=== PATIENT | female | born 1960 | race Caucasian/White ===

== ENCOUNTER 2016-10-09 14:33 | Emergency (ER) | payer OTHER ==
--- NOTE | 2016-10-09 15:37 | EDM.PDOC ---
ED HPI GENERAL MEDICAL PROBLEM - General Chief Complaint: General Stated Complaint: DIABETIC, HIGH BLOOD Time Seen by Provider: 10/09/16 15:48 Source of Information: Reports: Patient, RN, RN Notes Reviewed History Limitations: Reports: No Limitations - History of Present Illness INITIAL COMMENTS - FREE TEXT/NARRATIVE: Arrives to the ER by private vehicle with complaint of chest pain/pressure for 3 to 34 days. Today the patient found her blood pressure to be significantly higher than usual. She also found her blood sugar to be over 500, which is extremely unusual for her. She had a headache earlier, which had resolved by the time of arrival. She denies any edema, nausea, vomiting or cough. She denies radiating pain. She does admit to episodes of shortness of breath, which are not related to exertion. Patient states that she took and aspirin 81 mg this morning. Severity: Severe Improves with: Reports: None Worsens with: Reports: None Associated Symptoms: Reports: No Other Symptoms - Related Data Allergies Allergy/AdvReac Type Severity Reaction Status Date / Time Penicillins Allergy Cannot Verified 10/09/16 15:49 Remember Home Meds: Home Meds Budesonide/Formoterol Fumarate [Symbicort 80-4.5 Mcg Inhaler] 1 mg PO ACLUNCH [History] Citalopram Hydrobromide [Citalopram HBr] 20 mg PO DAILY 10/09/16 [History] metFORMIN [Glucophage] 1,000 mg PO BID 10/09/16 [History] Past Medical History Cardiovascular History: Reports: Hypertension Endocrine/Metabolic History: Reports: Diabetes, Type II, Obesity/BMI 30+ Social & Family History - Family History Family Medical History: Noncontributory ED ROS GENERAL - Review of Systems Review Of Systems: ROS reveals no pertinent complaints other than HPI. ED EXAM, GENERAL - Physical Exam Exam: See Below Exam Limited By: No Limitations General Appearance: Anxious, Obese Eye Exam: Bilateral Eye: Normal Inspection Ears: Normal External Exam, Normal Canal, Hearing Grossly Normal, Normal TMs Nose: Normal Inspection, Normal Mucosa, No Blood Throat/Mouth: Normal Inspection, Normal Lips, Normal Teeth, Normal Gums, Normal Oropharynx, Normal Voice, No Airway Compromise Head: Atraumatic, Normocephalic Neck: Normal Inspection, Supple, Non-Tender, Full Range of Motion Respiratory/Chest: No Respiratory Distress, Lungs Clear, Normal Breath Sounds, No Accessory Muscle Use, Chest Non-Tender Cardiovascular: Regular Rate, Rhythm, Tachycardia GI/Abdominal: Other (benign obese abdomen) Back Exam: Normal Inspection, Full Range of Motion, NT Extremities: Normal Inspection, Normal Range of Motion, Non-Tender, Normal Capillary Refill, No Pedal Edema Neurological: Alert, Oriented, CN II-XII Intact, Normal Cognition, Normal Gait, Normal Reflexes, No Motor/Sensory Deficits Psychiatric: Anxious Skin Exam: Other (normal but flushed color to face.) Lymphatic: No Adenopathy EKG INTERPRETATION EKG Date: 10/09/16 Time: 16:02 Rhythm: other (sinus rhythm) Rate (beats/min): 94 [place]: normal P-wave: present QRS: normal ST-T: normal QT: normal Course - Vital Signs Last Recorded V/S: Last Vital Signs Temp 36.6 C 10/09/16 15:42 Pulse 96 10/09/16 15:42 Resp 14 10/09/16 15:42 BP 179/116 H 10/09/16 15:42 Pulse Ox 97 10/09/16 15:42 - Orders/Labs/Meds Orders: Active Orders 24 hr Category Date Time Status EKG 12 Lead [EKG Documentation Completion] [RC] STAT Care 10/09/16 15:40 Active Peripheral IV Care [RC] . DIRECTED Care 10/09/16 15:41 Active B-TYPE NATRIURETIC PEPTIDE,BNP [CHEM] Stat Lab 10/09/16 15:55 Results COMPREHENSIVE METABOLIC PN,CMP [CHEM] Stat Lab 10/09/16 15:55 Results CULTURE BLOOD [BC] Stat Lab 10/09/16 15:50 Results CULTURE BLOOD [BC] Stat Lab 10/09/16 15:55 Received ETHANOL BLOOD MEDICAL [CHEM] Stat Lab 10/09/16 15:55 Results LACTIC ACID [CHEM] Stat Lab 10/09/16 15:55 Received TROPONIN I [CHEM] Stat Lab 10/09/16 15:55 Results Sodium Chloride 0.9% [Saline Flush] Med 10/09/16 15:41 Active 10 ml FLUSH ASDIRECTED PRN Blood Culture x2 Reflex Set [OM.PC] Stat Oth 10/09/16 15:40 Ordered Peripheral IV Insertion Adult [OM.PC] Stat Oth 10/09/16 15:40 Ordered Medication Orders Sodium Chloride (Saline Flush) 10 ml FLUSH ASDIRECTED PRN PRN Reason: Keep Vein Open Last Admin: 10/09/16 16:04 Dose: 10 ml Labs: Laboratory Tests 10/09/16 10/09/16 10/09/16 Range/Units 15:17 15:55 15:55 WBC 8.4 (5.0-10.0) 10^3/uL RBC 4.85 (4.2-5.4) 10^6/uL Hgb 14.9 (12.0-16.0) g/dL Hct 43.4 (37.0-47.0) % MCV 89.5 (80-100) fL MCH 30.7 (27.0-34.0) pg MCHC 34.3 (33.0-35.0) g/dL Plt Count 206 (150-450) 10^3/uL Neut % (Auto) 51.8 (42.2-75.2) % Lymph % (Auto) 39.2 (20.5-50.1) % [place] % (Auto) 6.9 (2-8) % Eos % (Auto) 1.7 (1.0-3.0) % Baso % (Auto) 0.4 (0.0-1.0) % POC Glucose 472 H* (70-105) mg/dl Troponin I 0.03 H* (0.00-0.02) ng/ml B-Natriuretic Peptide 17 (0-100) pg/ml Urine Color (YELLOW) Urine Appearance (CLEAR) Urine pH (5.0-9.0) Ur Specific [place] (1.005-1.030) Urine Protein (NEGATIVE) Urine Glucose (UA) (NEGATIVE) Urine Ketones (NEGATIVE) Urine Occult Blood (NEGATIVE) Urine Nitrite (NEGATIVE) Urine Bilirubin (NEGATIVE) Urine Urobilinogen (0.2-1.0) mg/dL Ur Leukocyte Esterase (NEGATIVE) Urine RBC /HPF Urine WBC (0-5/HPF) /HPF Ur Epithelial Cells /HPF Urine Bacteria (0-FEW/HPF) /HPF Urine Mucus /LPF Urine Opiates Screen (NEGATIVE) Ur Oxycodone Screen (NEGATIVE) Urine Methadone Screen (NEGATIVE) Ur Barbiturates Screen (NEGATIVE) U Tricyclic Antidepress (NEGATIVE) Ur Phencyclidine Scrn (NEGATIVE) Ur Amphetamine Screen (NEGATIVE) U Methamphetamines Scrn (NEGATIVE) Urine MDMA Screen (NEGATIVE) U Benzodiazepines Scrn (NEGATIVE) Urine Cocaine Screen (NEGATIVE) U Marijuana (THC) Screen (NEGATIVE) 10/09/16 10/09/16 Range/Units 16:12 16:12 WBC (5.0-10.0) 10^3/uL RBC (4.2-5.4) 10^6/uL Hgb (12.0-16.0) g/dL Hct (37.0-47.0) % MCV (80-100) fL MCH (27.0-34.0) pg MCHC (33.0-35.0) g/dL Plt Count (150-450) 10^3/uL Neut % (Auto) (42.2-75.2) % Lymph % (Auto) (20.5-50.1) % [place] % (Auto) (2-8) % Eos % (Auto) (1.0-3.0) % Baso % (Auto) (0.0-1.0) % POC Glucose (70-105) mg/dl Troponin I (0.00-0.02) ng/ml B-Natriuretic Peptide (0-100) pg/ml Urine Color Yellow (YELLOW) Urine Appearance Slightly cloudy (CLEAR) Urine pH 5.0 (5.0-9.0) Ur Specific [place] 1.010 (1.005-1.030) Urine Protein Negative (NEGATIVE) Urine Glucose (UA) 500 H (NEGATIVE) Urine Ketones Negative (NEGATIVE) Urine Occult Blood Negative (NEGATIVE) Urine Nitrite Negative (NEGATIVE) Urine Bilirubin Negative (NEGATIVE) Urine Urobilinogen 0.2 (0.2-1.0) mg/dL Ur Leukocyte Esterase Negative (NEGATIVE) Urine RBC 0-5 /HPF Urine WBC 0-5 (0-5/HPF) /HPF Ur Epithelial Cells Few /HPF Urine Bacteria Rare (0-FEW/HPF) /HPF Urine Mucus Rare /LPF Urine Opiates Screen Negative (NEGATIVE) Ur Oxycodone Screen Negative (NEGATIVE) Urine Methadone Screen Negative (NEGATIVE) Ur Barbiturates Screen Negative (NEGATIVE) U Tricyclic Antidepress Negative (NEGATIVE) Ur Phencyclidine Scrn Negative (NEGATIVE) Ur Amphetamine Screen Negative (NEGATIVE) U Methamphetamines Scrn Negative (NEGATIVE) Urine MDMA Screen Negative (NEGATIVE) U Benzodiazepines Scrn Negative (NEGATIVE) Urine Cocaine Screen Negative (NEGATIVE) U Marijuana (THC) Screen Negative (NEGATIVE) Meds: Medications Generic Name Dose Route Start Last Admin Trade Name Freq PRN Reason Stop Dose Admin Sodium Chloride 10 ml 10/09/16 15:41 10/09/16 16:04 Saline Flush FLUSH 10 ml ASDIRECTED PRN Administration Keep Vein Open Discontinued Medications Generic Name Dose Route Start Last Admin Trade Name Freq PRN Reason Stop Dose Admin Aspirin 324 mg 10/09/16 17:24 10/09/16 17:48 Aspirin PO 10/09/16 17:25 324 mg ONETIME ONE Administration Hydralazine HCl 20 mg 10/09/16 15:41 10/09/16 16:03 Apresoline IVPUSH 10/09/16 15:42 20 mg ONETIME ONE Administration Insulin Human Regular 10 unit 10/09/16 15:42 10/09/16 16:31 Novolin R SUBCUT 10/09/16 15:43 10 units ONETIME ONE Administration Protocol - Radiology Interpretation Free Text/Narrative:: Chest x-ray: Per rad report is normal. Departure - Departure Time of Disposition: 17:20 Disposition: DC/Tfer to Acute Hospital 02 Condition: serious Clinical Impression: Elevated troponin, Accelerated hypertension Chest pain Qualifiers: Chest pain type: unspecified Qualified Code(s): R07.9 - Chest pain, unspecified Hyperglycemia due to type 2 diabetes mellitus Qualifiers: Diabetes mellitus prison insulin use: without prison use Qualified Code(s ): E11.65 - Type 2 diabetes mellitus with hyperglycemia - Discharge Information Forms: ED Department Discharge, Interfacility Transfer EMTALA - My Orders Last 24 Hours: My Active Orders 10/09/16 15:40 EKG 12 Lead [EKG Documentation Completion] [RC] STAT Blood Culture x2 Reflex Set [OM.PC] Stat Peripheral IV Insertion Adult [OM.PC] Stat 10/09/16 15:41 Peripheral IV Care [RC] . DIRECTED Sodium Chloride 0.9% [Saline Flush] 10 ml FLUSH ASDIRECTED PRN 10/09/16 15:50 CULTURE BLOOD [BC] Stat 10/09/16 15:55 B-TYPE NATRIURETIC PEPTIDE,BNP [CHEM] Stat COMPREHENSIVE METABOLIC PN,CMP [CHEM] Stat CULTURE BLOOD [BC] Stat ETHANOL BLOOD MEDICAL [CHEM] Stat LACTIC ACID [CHEM] Stat TROPONIN I [CHEM] Stat - Assessment/Plan Last 24 Hours: My Active Orders 10/09/16 15:40 EKG 12 Lead [EKG Documentation Completion] [RC] STAT Blood Culture x2 Reflex Set [OM.PC] Stat Peripheral IV Insertion Adult [OM.PC] Stat 10/09/16 15:41 Peripheral IV Care [RC] . DIRECTED Sodium Chloride 0.9% [Saline Flush] 10 ml FLUSH ASDIRECTED PRN 10/09/16 15:50 CULTURE BLOOD [BC] Stat 10/09/16 15:55 B-TYPE NATRIURETIC PEPTIDE,BNP [CHEM] Stat COMPREHENSIVE METABOLIC PN,CMP [CHEM] Stat CULTURE BLOOD [BC] Stat ETHANOL BLOOD MEDICAL [CHEM] Stat LACTIC ACID [CHEM] Stat TROPONIN I [CHEM] Stat
[2016-10-09] MEDS ORDERED: Sodium Chloride 0.9% 10 ML Syringe FLUSH PRN (15:41)
[2016-10-09] MEDS ORDERED: hydrALAZINE 20 MG/ML SDV IVPUSH ONE (15:41)
[2016-10-09] MEDS ORDERED: Insulin Regular, Human 100 Units/ML 10 ML Vial SUBCUT ONE (15:42)
[2016-10-09 15:46] VITALS: BP 179/116
--- NOTE | 2016-10-09 16:34 | CR ---
Clinical history: 55-year-old hypertensive obese female with chest "pressure". Interpretation: AP portable chest (slight rotation) unremarkable. Normal cardiac silhouette and bony thorax. No cephalization of flow, signs of alveolar edema or depe ndent pleural effusion. No lung mass, hilar lymphadenopathy or focal lobar pneumonia. No atelectasis/collapse. No pneumothor ax.
[2016-10-09] MEDS ORDERED: Aspirin 81 MG Tab.Chew PO ONE (17:24)
[2016-10-09 18:39] LABS: CHLORIDE,CL 95 mmol/L (101-111); SODIUM,NA 131 mmol/L (135-145)
--- NOTE | 2016-10-14 13:50 | EKG ---
10/09/2016- TOY HERNANDEZ - EKG per my reading shows sinus rhythm with rate of 94. No acute ST changes. [facility] /[id number]
== END 2016-10-09 17:20 ==
LOC: DL.ED 14:33
DX: I10 Essential (primary) hypertension (principal); E11.65 Type 2 diabetes mellitus with hyperglycemia; R07.9 Chest pain, unspecified; R79.89 Other specified abnormal findings of blood chemistry; Z88.0 Allergy status to penicillin; Z79.899 Other long term (current) drug therapy; E66.9 Obesity, unspecified; Z79.84 Long term (current) use of oral hypoglycemic drugs
CPT/HCPCS: 36415; 71010; 80053; 80305; 81001; 82962; 83605; 83880; 84484; 85025; 87040; 93005; 96372; 96374; 99285; A9270; G0480; J0360; J1815; J7050

== ENCOUNTER 2021-04-08 15:37 | Observation (INO) | payer OTHER ==
[2021-04-08] MEDS ORDERED: Sodium Chloride 0.9% 10 ML Syringe FLUSH PRN (17:06)
[2021-04-08] MEDS ORDERED: Insulin Regular, Human 100 Units/ML 3 ML Vial IVPUSH ONE (17:06)
[2021-04-08] MEDS ORDERED: Sodium Chloride 0.9% 1,000 ML IV ONE (17:06)
[2021-04-08] MEDS ORDERED: Ondansetron 4 MG/2 ML SDV IV ONE (17:06)
[2021-04-08 17:45] LABS: ANION GAP 15.3 mEq/L (7-13); CHLORIDE,CL 84 mmol/L (98-107); SODIUM,NA 123 mmol/L (136-145)
--- NOTE | 2021-04-08 18:11 | EDM.PDOC ---
Scribed by Bufyf Valenzuela 04/08/21 [id number] for Joe Gonsales MD ED HPI GENERAL MEDICAL PROBLEM - General Chief Complaint: General Stated Complaint: HIGH BLOOD SUGAR Time Seen by Provider: 04/08/21 16:49 Source of Information: Reports: Patient, RN, RN Notes Reviewed History Limitations: Reports: No Limitations - History of Present Illness INITIAL COMMENTS - FREE TEXT/NARRATIVE: Patient presents to ED by POV stating she was started on steroids in high doses 10 days ago for temporal arteritis. Her blood glucoses has been much higher than normal, and today her machine read, "H". Admits to blurred vision, gen. weakness, nausea, increased thirst/dry mouth, and voiding in excessive amounts. Onset: Gradual Duration: Getting Worse Location: Reports: Generalized Severity: Severe Improves with: Reports: None Worsens with: Reports: None Associated Symptoms: Reports: No Other Symptoms - Related Data Allergies Allergy/AdvReac Type Severity Reaction Status Date / Time Penicillins Allergy Cannot Verified 04/08/21 16:53 Remember Home Meds: Home Meds Budesonide/Formoterol Fumarate [Symbicort 80-4.5 Mcg Inhaler] 1 puff IH DAILY 10/09/16 [History] Citalopram Hydrobromide [Citalopram HBr] 10 mg PO DAILY 10/09/16 [History] metFORMIN [Glucophage] 1,000 mg PO BID 10/09/16 [History] Aspirin [Esther Chewable] 81 mg PO 10/21/16 [History] Labetalol HCl [Labetalol] 200 mg PO DAILY 10/21/16 [History] Loratadine/Pseudoephedrine [Loratadine-Pseudoephed 10-240] 1 each PO DAILY 10/21/16 [History] Magnesium 250 mg PO DAILY 10/21/16 [History] Multivitamin [Multivitamins] 1 tab PO DAILY 10/21/16 [History] Zinc 50 mg PO DAILY 10/21/16 [History] amLODIPine [Norvasc] 5 mg PO DAILY 10/21/16 [History] Past Medical History HEENT History: Reports: Allergic Rhinitis Cardiovascular History: Reports: Hypertension Respiratory History: Reports: Asthma Endocrine/Metabolic History: Reports: Diabetes, Type II, Obesity/BMI 30+ - Past Surgical History GI Surgical History: Reports: Cholecystectomy, Other (See Below) Other GI Surgeries/Procedures: liver biopsy Social & Family History - Family History Family Medical History: No Pertinent Family History - Caffeine Use Caffeine Use: Reports: None ED ROS GENERAL - Review of Systems Review Of Systems: Comprehensive ROS is negative, except as noted in HPI. ED EXAM, GENERAL - Physical Exam Exam: See Below Exam Limited By: No Limitations General Appearance: Alert, WD/WN, No Apparent Distress Eye Exam: Bilateral Eye: EOMI, Normal Inspection, PERRL Nose: Normal Inspection Throat/Mouth: Normal Voice, No Airway Compromise, Other (Dry oral mucosa with thrush) Head: Atraumatic, Normocephalic Neck: Normal Inspection, Non-Tender, Full Range of Motion. No: Carotid Bruit, Lymphadenopathy (L), Lymphadenopathy (R) Respiratory/Chest: No Respiratory Distress, Lungs Clear, Normal Breath Sounds, No Accessory Muscle Use, Chest Non-Tender Cardiovascular: Regular Rate, Rhythm, No Edema GI/Abdominal: Normal Bowel Sounds, Soft, Tender (Mild diffuse tenderness). No: Guarding, Rigid, Rebound Back Exam: Normal Inspection Extremities: Normal Inspection Neurological: Alert, Oriented, CN II-XII Intact, Normal Cognition, No Motor/Sensory Deficits Psychiatric: Normal Mood Skin Exam: Warm, Dry, Intact, Normal Color, No Rash Course - Vital Signs Last Recorded V/S: Last Vital Signs Temp 98 F 04/08/21 16:49 Pulse 92 04/08/21 16:49 Resp 18 04/08/21 16:49 BP 134/102 H 04/08/21 16:49 Pulse Ox 94 L 04/08/21 16:49 - Orders/Labs/Meds Orders: Active Orders 24 hr Category Date Time Status Blood Glucose Check, Bedside [RC] ONETIME Care 04/08/21 17:05 Active Peripheral IV Care [RC] . DIRECTED Care 04/08/21 17:06 Active CBC WITH AUTO DIFF [HEME] Stat Lab 04/08/21 16:40 Results COMPREHENSIVE METABOLIC PN,CMP [CHEM] Stat Lab 04/08/21 16:40 Results CORONAVIRUS COVID-19 JOI [MOLEC] Stat Lab 04/08/21 17:22 Received KETONES,BLOOD [CHEM] Stat Lab 04/08/21 16:40 Results LACTATE SEPSIS W/ REFLEX [CHEM] Stat Lab 04/08/21 17:05 Ordered MANUAL DIFFERENTIAL QA/NC [HEME] Stat Lab 04/08/21 16:40 Results TROPONIN I HIGH SENSITIVITY [CHEM] Stat Lab 04/08/21 16:40 Results UA RFX HERNANDEZ AND CULT IF INDIC [URIN] Stat Lab 04/08/21 17:05 Ordered Insulin Regular in 0.9 % NACL [Myxredlin in NS 100 UNIT Med 04/08/21 17:15 Active /100 ML] 100 unit in 100 ml IV TITRATE Sodium Chloride 0.9% [Saline Flush] Med 04/08/21 17:06 Active 10 ml FLUSH ASDIRECTED PRN Peripheral IV Insertion Adult [OM.PC] Stat Oth 04/08/21 17:05 Ordered Medication Orders Insulin Regular in 0.9 % NACL (Myxredlin In Ns 100 Unit/100 Ml) 100 unit in 100 mls @ 6.895 mls/hr IV TITRATE WILIAM; Protocol Last Admin: 04/08/21 17:43 Dose: 0.1 units/kg/hr, 6.895 mls/hr Documented by: TAMMY Cosigned by: MILAGROS Sodium Chloride (Sodium Chloride 0.9% 10 Ml Syringe) 10 ml FLUSH ASDIRECTED PRN PRN Reason: Keep Vein Open Labs: Laboratory Tests 04/08/21 04/08/21 04/08/21 Range/Units 16:34 16:40 16:40 WBC 15.9 H (5.0-10.0) 10^3/uL RBC 5.20 (4.2-5.4) 10^6/uL Hgb 13.7 (12.0-16.0) g/dL Hct 42.9 (37.0-47.0) % MCV 82.5 D (80-100) fL MCH 26.3 L (27.0-34.0) pg MCHC 31.9 L (33.0-35.0) g/dL Plt Count 308 D (150-450) 10^3/uL Neut % (Auto) 83.2 H (42.2-75.2) % Lymph % (Auto) 13.8 L (20.5-50.1) % [place] % (Auto) 2.3 (2-8) % Eos % (Auto) 0.5 L (1.0-3.0) % Baso % (Auto) 0.2 (0.0-1.0) % Add Manual Diff Yes POC Glucose > 600 H* (70-99) mg/dL Ketones Negative Meds: Medications Generic Name Dose Route Start Last Admin Trade Name Frearielle PRN Reason Stop Dose Admin Insulin Regular in 0.9 % NACL 100 unit in 100 mls @ 6.895 mls/hr 04/08/21 17:15 04/08/21 17:43 Myxredlin In Ns 100 Unit/100 Ml IV 0.1 units/kg/hr TITRATE WILIAM 6.895 mls/hr Administration Protocol 0.1 UNITS/KG/HR Sodium Chloride 10 ml 04/08/21 17:06 Sodium Chloride 0.9% 10 Ml Syringe FLUSH ASDIRECTED PRN Keep Vein Open Discontinued Medications Generic Name Dose Route Start Last Admin Trade Name Frearielle PRN Reason Stop Dose Admin Sodium Chloride 1,000 mls @ 999 mls/hr 04/08/21 17:06 04/08/21 17:42 Normal Saline IV 04/08/21 18:06 999 mls/hr .BOLUS ONE Administration Insulin Human Regular 10 unit 04/08/21 17:06 04/08/21 17:41 Insulin Regular, Human 100 Units/Ml 3 Ml Vial IVPUSH 04/08/21 17:07 10 units ONETIME ONE Administration Ondansetron HCl 4 mg 04/08/21 17:06 Ondansetron 4 Mg/2 Ml Sdv IV 04/08/21 17:07 ONETIME ONE Departure - Departure Time of Disposition: 18:09 (admitted to Dr. Rios) Disposition: Refer to Observation Condition: Good Clinical Impression: Steroid-induced hyperglycemia, Controlled type 1 diabetes mellitus with hyperglycemia, with long-term current use of insulin - Discharge Information *PRESCRIPTION DRUG MONITORING PROGRAM REVIEWED*: Not Applicable *COPY OF PRESCRIPTION DRUG MONITORING REPORT IN PATIENT EVIN: Not Applicable Forms: ED Department Discharge Sepsis Event Note (ED) - Focused Exam Vital Signs: Vital Signs Temp Pulse Resp BP Pulse Ox 04/08/21 16:49 98 F 92 18 134/102 H 94 L - My Orders Last 24 Hours: My Active Orders 04/08/21 16:40 CBC WITH AUTO DIFF [HEME] Stat COMPREHENSIVE METABOLIC PN,CMP [CHEM] Stat KETONES,BLOOD [CHEM] Stat MANUAL DIFFERENTIAL QA/NC [HEME] Stat TROPONIN I HIGH SENSITIVITY [CHEM] Stat 04/08/21 17:05 Blood Glucose Check, Bedside [RC] ONETIME LACTATE SEPSIS W/ REFLEX [CHEM] Stat UA RFX HERNANDEZ AND CULT IF INDIC [URIN] Stat Peripheral IV Insertion Adult [OM.PC] Stat 04/08/21 17:06 Peripheral IV Care [RC] . DIRECTED Sodium Chloride 0.9% [Saline Flush] 10 ml FLUSH ASDIRECTED PRN 04/08/21 17:15 Insulin Regular in 0.9 % NACL [Myxredlin in NS 100 UNIT/100 ML] 100 unit in 100 ml IV TITRATE 04/08/21 17:22 CORONAVIRUS COVID-19 JOI [MOLEC] Stat - Assessment/Plan Last 24 Hours: My Active Orders 04/08/21 16:40 CBC WITH AUTO DIFF [HEME] Stat COMPREHENSIVE METABOLIC PN,CMP [CHEM] Stat KETONES,BLOOD [CHEM] Stat MANUAL DIFFERENTIAL QA/NC [HEME] Stat TROPONIN I HIGH SENSITIVITY [CHEM] Stat 04/08/21 17:05 Blood Glucose Check, Bedside [RC] ONETIME LACTATE SEPSIS W/ REFLEX [CHEM] Stat UA RFX HERNANDEZ AND CULT IF INDIC [URIN] Stat Peripheral IV Insertion Adult [OM.PC] Stat 04/08/21 17:06 Peripheral IV Care [RC] . DIRECTED Sodium Chloride 0.9% [Saline Flush] 10 ml FLUSH ASDIRECTED PRN 04/08/21 17:15 Insulin Regular in 0.9 % NACL [Myxredlin in NS 100 UNIT/100 ML] 100 unit in 100 ml IV TITRATE 04/08/21 17:22 CORONAVIRUS COVID-19 JOI [MOLEC] Stat I have read and agree with the documentation that has been completed regarding this visit. By signing this record, I attest that the documentation was completed in my physical presence and is an accurate record of the encounter.
[2021-04-08] MEDS ORDERED: Acetaminophen 325 MG Tab PO PRN (18:34)
[2021-04-08] MEDS ORDERED: 50% Dextrose in Water 50 ML Syringe IVPUSH PRN (19:00)
[2021-04-08] MEDS ORDERED: Glucagon,Human Recombinant 1 MG Vial IM PRN (19:00)
--- NOTE | 2021-04-08 19:10 | PCM.HP ---
H&P History of Present Illness - General Date of Service: 04/08/21 Admit Problem/Dx: Admission Diagnosis/Problem Admission Diagnosis/Problem Hyperglycemia Source of Information: Patient, EMS History Limitations: Reports: No Limitations - History of Present Illness Initial Comments - Free Text/Narative: 60-year-old female with a past medical history of type 2 diabetes on insulin, recent diagnosis of temporal arteritis on high-dose p.o. prednisone, hypertension who presents with fatigue, hyperglycemia. Patient states that approximately 2 weeks ago she was diagnosed with what her primary believes is temporal arteritis. Patient states that she had been having severe jaw pain, left-sided temporal pain. States that she had some labs which are similar elevated ESR and CRP and was started on significant prednisone 60 mg daily. She states that she felt better but over the last 3 to 4 days she has had increased bilateral blurry vision, generalized fatigue, increased thirst, increased urination. In the emergency department she was hemodynamically stable laboratory values included a sodium 123 with corrected to 134, potassium 4.3, creatinine 1.56 I am increased her baseline, WBC 15.9, hemoglobin 13.7, platelet count 388, AST 38, ALT 77, lactate 3.2. Upon discussion with patient she reiterates the above story. Patient states that the vision changes in general m alaise she otherwise feels well. Patient denies any chest pains or pressures, abdominal pain, nausea or vomiting. Patient states that she has been eating today but her oral intake has been otherwise well. She states that she uses 54 units of Lantus at night and this was increased recently with her steroids she also just restarted yesterday on aspart 5 3 times daily with meals. States that her glucose monitor Reading "H" which she has not seen before she was confused that is why took her longer to come in. - Related Data Allergies/Adverse Reactions: Allergies Allergy/AdvReac Type Severity Reaction Status Date / Time Penicillins Allergy Cannot Verified 04/08/21 16:53 Remember Home Medications: Home Meds Budesonide/Formoterol Fumarate [Symbicort 80-4.5 Mcg Inhaler] 1 puff IH DAILY 10/09/16 [History] Citalopram Hydrobromide [Citalopram HBr] 10 mg PO DAILY 10/09/16 [History] metFORMIN [Glucophage] 1,000 mg PO BID 10/09/16 [History] Aspirin [Esther Chewable] 81 mg PO 10/21/16 [History] Labetalol HCl [Labetalol] 200 mg PO DAILY 10/21/16 [History] Loratadine/Pseudoephedrine [Loratadine-Pseudoephed 10-240] 1 each PO DAILY 10/21/16 [History] Magnesium 250 mg PO DAILY 10/21/16 [History] Multivitamin [Multivitamins] 1 tab PO DAILY 10/21/16 [History] Zinc 50 mg PO DAILY 10/21/16 [History] amLODIPine [Norvasc] 5 mg PO DAILY 10/21/16 [History] Past Medical History HEENT History: Reports: Allergic Rhinitis Cardiovascular History: Reports: Hypertension Respiratory History: Reports: Asthma Endocrine/Metabolic History: Reports: Diabetes, Type II, Obesity/BMI 30+ - Past Surgical History GI Surgical History: Reports: Cholecystectomy, Other (See Below) Other GI Surgeries/Procedures: liver biopsy Social & Family History - Family History Family Medical History: No Pertinent Family History - Tobacco Use Tobacco Use Status *Q: Unknown Ever Used Tobacco - Caffeine Use Caffeine Use: Reports: Coffee H&P Review of Systems - Review of Systems: Review Of Systems: See Below Free Text/Narrative: Review of systems is negative symptoms as in the HPI Exam - Exam Exam: See Below - Vital Signs Vital Signs: Last Vital Signs Temp 98 F 04/08/21 16:49 Pulse 92 04/08/21 16:49 Resp 18 04/08/21 16:49 BP 134/102 H 04/08/21 16:49 Pulse Ox 94 L 04/08/21 16:49 Weight: 152 lb - Exam General: Alert, Oriented, Cooperative HEENT: Conjunctiva Clear, EACs Clear, Other (Bilateral decreased vision - peripheral hartmann intact), PERRLA Neck: Supple, Trachea Midline Lungs: Clear to Auscultation, Normal Respiratory Effort Cardiovascular: Regular Rate, Regular Rhythm GI/Abdominal Exam: Normal Bowel Sounds, Soft Back Exam: Normal Inspection Extremities: Normal Inspection, Normal Range of Motion Peripheral Pulses: 2+: Radial (L), Radial (R) Skin: Warm, Dry Neurological: Cranial Nerves Intact, Reflexes Equal Bilateral Neuro Extensive - Mental Status: Alert, Oriented x3, Normal Mood/Affect - Patient Data Lab Results Last 24 hrs: Laboratory Results - last 24 hr 12/11/2004/08/21 04/08/21 Range/Units 16:34 16:40 16:40 WBC 15.9 H (5.0-10.0) 10^3/uL RBC 5.20 (4.2-5.4) 10^6/uL Hgb 13.7 (12.0-16.0) g/dL Hct 42.9 (37.0-47.0) % MCV 82.5 D (80-100) fL MCH 26.3 L (27.0-34.0) pg MCHC 31.9 L (33.0-35.0) g/dL Plt Count 308 D (150-450) 10^3/uL Neut % (Auto) 83.2 H (42.2-75.2) % Lymph % (Auto) 13.8 L (20.5-50.1) % [place] % (Auto) 2.3 (2-8) % Eos % (Auto) 0.5 L (1.0-3.0) % Baso % (Auto) 0.2 (0.0-1.0) % Add Manual Diff Yes Neutrophils % (Manual) 87 H (42-75) % Lymphocytes % (Manual) 11 L (20-50) % Monocytes % (Manual) 2 (2-8) % Sodium 123 L (136-145) mmol/L Potassium 4.3 (3.5-5.1) mmol/L Chloride 84 L (98-107) mmol/L Carbon Dioxide 28 (21-32) mmol/L Anion Gap 15.3 H (7-13) mEq/L BUN 38 H (7-18) mg/dL Creatinine 1.56 H (0.55-1.02) mg/dL Est Cr Clr Drug Dosing 36.35 mL/min Estimated GFR (MDRD) 34 BUN/Creatinine Ratio 24.4 (No establ ref range) Glucose 812 H* (70-99) mg/dL POC Glucose > 600 H* (70-99) mg/dL Lactic Acid (0.4-2.0) mmol/L Calcium 9.3 (8.5-10.1) mg/dL Total Bilirubin 0.9 (0.2-1.0) mg/dL AST 38 H (15-37) U/L ALT 77 H (14-59) U/L Alkaline Phosphatase 227 H (46-116) U/L Troponin I High Sens 5 (<=51) pg/mL Total Protein 7.1 (6.4-8.2) g/dL Albumin 3.2 L (3.4-5.0) g/dL Globulin 3.9 Albumin/Globulin Ratio 0.82 Ketones Negative SARS-CoV-2 RNA (JOI) (NEGATIVE) 04/08/21 04/08/21 04/08/21 Range/Units 17:22 17:58 18:17 WBC (5.0-10.0) 10^3/uL RBC (4.2-5.4) 10^6/uL Hgb (12.0-16.0) g/dL Hct (37.0-47.0) % MCV (80-100) fL MCH (27.0-34.0) pg MCHC (33.0-35.0) g/dL Plt Count (150-450) 10^3/uL Neut % (Auto) (42.2-75.2) % Lymph % (Auto) (20.5-50.1) % [place] % (Auto) (2-8) % Eos % (Auto) (1.0-3.0) % Baso % (Auto) (0.0-1.0) % Add Manual Diff Neutrophils % (Manual) (42-75) % Lymphocytes % (Manual) (20-50) % Monocytes % (Manual) (2-8) % Sodium (136-145) mmol/L Potassium (3.5-5.1) mmol/L Chloride (98-107) mmol/L Carbon Dioxide (21-32) mmol/L Anion Gap (7-13) mEq/L BUN (7-18) mg/dL Creatinine (0.55-1.02) mg/dL Est Cr Clr Drug Dosing mL/min Estimated GFR (MDRD) BUN/Creatinine Ratio (No establ ref range) Glucose (70-99) mg/dL POC Glucose 473 H* (70-99) mg/dL Lactic Acid 3.2 H* (0.4-2.0) mmol/L Calcium (8.5-10.1) mg/dL Total Bilirubin (0.2-1.0) mg/dL AST (15-37) U/L ALT (14-59) U/L Alkaline Phosphatase (46-116) U/L Troponin I High Sens (<=51) pg/mL Total Protein (6.4-8.2) g/dL Albumin (3.4-5.0) g/dL Globulin Albumin/Globulin Ratio Ketones SARS-CoV-2 RNA (JOI) Negative (NEGATIVE) Result Diagrams: 04/08/21 16:40 04/08/21 16:40 - Problem List (1) DM2 (diabetes mellitus, type 2) SNOMED Code(s): 89943793 ICD Code: E11.9 - TYPE 2 DIABETES MELLITUS WITHOUT COMPLICATIONS Status: Acute Current Visit: Yes (2) Hyperglycemia due to type 2 diabetes mellitus SNOMED Code(s): 980856726286522, 889515038382656 ICD Code: E11.65 - TYPE 2 DIABETES MELLITUS WITH HYPERGLYCEMIA Status: Acute Current Visit: No Qualifiers: 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 use Qualified Code(s): E11.65 - Type 2 diabetes mellitus with hyperglycemia (3) Steroid-induced hyperglycemia SNOMED Code(s): 002980189 ICD Code: R73.9 - HYPERGLYCEMIA, UNSPECIFIED; T38.0X5A - ADVERSE EFFECT OF GLUCOCORT/SYNTH ANALOG, INIT Status: Acute Current Visit: No (4) HTN (hypertension) SNOMED Code(s): 05621872 ICD Code: I10 - ESSENTIAL (PRIMARY) HYPERTENSION Status: Acute Current Visit: Yes (5) Anxiety SNOMED Code(s): 02334553 ICD Code: F41.9 - ANXIETY DISORDER, UNSPECIFIED Status: Acute Current Visit: Yes (6) Temporal arteritis SNOMED Code(s): 516596801 ICD Code: M31.6 - OTHER GIANT CELL ARTERITIS Status: Acute Current Visit: Yes Problem List Initiated/Reviewed/Updated: Yes Orders Last 24hrs: Active Orders 24 hr Category Date Time Status Admission Diagnosis [ADT] Stat ADT 04/08/21 18:25 Ordered Admission Status [Patient Status] [ADT] Routine ADT 04/08/21 18:25 Active Blood Glucose Check, Bedside [RC] ONETIME Care 04/08/21 17:05 Active Blood Glucose Check, Bedside [RC] WITHMEALSANDBED Care 04/08/21 19:00 Ordered Oxygen Therapy [RC] PRN Care 04/08/21 18:34 Active Peripheral IV Care [RC] . DIRECTED Care 04/08/21 17:06 Active VTE/DVT Education [RC] PER UNIT ROUTINE Care 04/08/21 18:34 Active Vital Signs [RC] Q4H Care 04/08/21 18:34 Active REFLEX LACTIC ACID YES OR NO [CHEM] Routine Lab 04/08/21 18:56 Received UA RFX HERNANDEZ AND CULT IF INDIC [URIN] Stat Lab 04/08/21 17:05 Ordered Acetaminophen [TylenoL] Med 04/08/21 18:34 Active 650 mg PO Q4H PRN Dextrose 50% in Water Med 04/08/21 19:00 Ordered 50 ml IVPUSH Q15M PRN Glucagon,Human Recombinant [GlucaGen] Med 04/08/21 19:00 Ordered 1 mg IM Q15M PRN Insulin Glarg,Human.Rec.Analog [LantUS] Med 04/08/21 21:00 Ordered 55 unit SUBCUT BEDTIME Insulin Lispro [HumaLOG] Med 04/08/21 21:00 Ordered See Protocol SUBCUT WITHMEALSANDBED Insulin Regular in 0.9 % NACL [Myxredlin in NS 100 UNIT Med 04/08/21 17:15 Active /100 ML] 100 unit in 100 ml IV TITRATE Sodium Chloride 0.9% [Saline Flush] Med 04/08/21 17:06 Active 10 ml FLUSH ASDIRECTED PRN Peripheral IV Insertion Adult [OM.PC] Stat Oth 04/08/21 17:05 Ordered Resuscitation Status Routine Resus Stat 04/08/21 18:34 Ordered Medication Orders Acetaminophen (Acetaminophen 325 Mg Tab) 650 mg PO Q4H PRN PRN Reason: Pain (Mild 1-3)/fever Dextrose/Water (50% Dextrose In Water 50 Ml Syringe) 50 ml IVPUSH Q15M PRN PRN Reason: Hypoglycemia Glucagon (Glucagon,Human Recombinant 1 Mg Vial) 1 mg IM Q15M PRN PRN Reason: Hypoglycemia Insulin Regular in 0.9 % NACL (Myxredlin In Ns 100 Unit/100 Ml) 100 unit in 100 mls @ 6.895 mls/hr IV TITRATE WILIAM; Protocol Last Admin: 04/08/21 17:43 Dose: 0.1 units/kg/hr, 6.895 mls/hr Documented by: TAMMY Cosigned by: MILAGROS Insulin Glargine (Insulin Glarg,Human.Rec.Analog 100 Unit/Ml) 55 unit SUBCUT BEDTIME WILIAM Insulin Human Lispro (Insulin Lispro 100 Units/Ml 3 Ml Vial) 0 unit SUBCUT WITHMEALSANDBED WILIAM; Protocol Sodium Chloride (Sodium Chloride 0.9% 10 Ml Syringe) 10 ml FLUSH ASDIRECTED PRN PRN Reason: Keep Vein Open Assessment/Plan Comment:: Patient is a 60-year-old female with a history of type 2 diabetes on insulin therapy who presents with steroid-induced hyperglycemia due to recent p.o. prednisone for temporal arteritis # Hyperglycemia, HHS -Glucose significantly elevated at 812 upon admission, decreased to 470 after 10 units normal insulin -Secondary to significant prednisone given diagnosis temporal arteritis, patient recently had increase in her Lantus at home and had just the addition of aspart yesterday -DC'd insulin drip, ordered her home Lantus 55 units, will do medium dose sliding scale insulin, carb controlled diet, significant fluid resuscitation -Q4 hour glucose checks -Elevated lactate at 3.2, recheck within 4 hours, aggressive fluid resuscitation # EFFIE - unclear baseline but patient denies any kidney disease - K 4.3 - anion gap secondary to lactic acidosis from dehydration - Likely secondary to dehydration, recheck in a.m., fluid resuscitation see below # Temporal arteritis -Continue p.o. prednisone 50 mg p.o. daily -Patient states that she has a follow-up appointment with rheumatology tomorrow to discuss further management # Chronic medical conditions Hypertensioncontinue labetalol 200 mg p.o. daily, continue amlodipine Anxiety/depression -continue citalopram 10 mg daily Fluid status 150 mL an hour NS Electrolytesno acute concerns Dietcarb controlled
[2021-04-08] MEDS ORDERED: Sodium Chloride 0.9% with KCl 1,000 ML IV SCH (19:15)
[2021-04-08] MEDS: Sodium Chloride 0.9% 1,000 ML IV SCH (20:26)
[2021-04-08] MEDS: Insulin Lispro 100 Units/ML 3 ML Vial SUBCUT SCH (21:00)
[2021-04-08] MEDS ORDERED: Insulin Glarg,Human.Rec.Analog 100 Unit/ML SUBCUT SCH (21:00)
[2021-04-09] MEDS: Sodium Chloride 0.9% 1,000 ML IV SCH (03:12)
--- NOTE | 2021-04-09 06:16 | PCM.PN ---
- General Info Date of Service: 04/09/21 Admission Dx/Problem (Free Text): Admission Diagnosis/Problem Admission Diagnosis/Problem Hyperglycemia Subjective Update: Patient states that she feels improved this a.m. Denies any nausea or vomiting, chest pains or pressures, shortness of breath. Patient states her vision is also improved and she was able to read the clock this morning from across the room. Had prolonged discussion with patient about utilizing her long-acting insulin and then a sliding scale which was provided to her. Patient stated understanding. Patient has a follow-up with rheumatology today that she wishes to make. Review of systems is negative except those listed above. - Patient Data Vitals - Most Recent: Last Vital Signs Temp 99.2 F 04/09/21 04:00 Pulse 77 04/09/21 04:00 Resp 18 04/09/21 04:00 BP 137/83 04/09/21 04:00 Pulse Ox 94 L 04/09/21 04:00 Weight - Most Recent: 152 lb 6.4 oz I&O - Last 24 Hours: Intake & Output 04/08/21 04/08/21 04/09/21 14:59 22:59 06:59 Intake Total 700 Output Total 200 Balance 500 Lab Results Last 24 Hours: Laboratory Results - last 24 hr 04/08/21 04/08/21 04/08/21 Range/Units 16:34 16:40 16:40 WBC 15.9 H (5.0-10.0) 10^3/uL RBC 5.20 (4.2-5.4) 10^6/uL Hgb 13.7 (12.0-16.0) g/dL Hct 42.9 (37.0-47.0) % MCV 82.5 D (80-100) fL MCH 26.3 L (27.0-34.0) pg MCHC 31.9 L (33.0-35.0) g/dL Plt Count 308 D (150-450) 10^3/uL Neut % (Auto) 83.2 H (42.2-75.2) % Lymph % (Auto) 13.8 L (20.5-50.1) % [place] % (Auto) 2.3 (2-8) % Eos % (Auto) 0.5 L (1.0-3.0) % Baso % (Auto) 0.2 (0.0-1.0) % Add Manual Diff Yes Neutrophils % (Manual) 87 H (42-75) % Lymphocytes % (Manual) 11 L (20-50) % Monocytes % (Manual) 2 (2-8) % Sodium 123 L (136-145) mmol/L Potassium 4.3 (3.5-5.1) mmol/L Chloride 84 L (98-107) mmol/L Carbon Dioxide 28 (21-32) mmol/L Anion Gap 15.3 H (7-13) mEq/L BUN 38 H (7-18) mg/dL Creatinine 1.56 H (0.55-1.02) mg/dL Est Cr Clr Drug Dosing 36.35 mL/min Estimated GFR (MDRD) 34 BUN/Creatinine Ratio 24.4 (No establ ref range) Glucose 812 H* (70-99) mg/dL POC Glucose > 600 H* (70-99) mg/dL Lactic Acid (0.4-2.0) mmol/L Calcium 9.3 (8.5-10.1) mg/dL Total Bilirubin 0.9 (0.2-1.0) mg/dL AST 38 H (15-37) U/L ALT 77 H (14-59) U/L Alkaline Phosphatase 227 H (46-116) U/L Troponin I High Sens 5 (<=51) pg/mL Total Protein 7.1 (6.4-8.2) g/dL Albumin 3.2 L (3.4-5.0) g/dL Globulin 3.9 Albumin/Globulin Ratio 0.82 Urine Color (YELLOW) Urine Appearance (CLEAR) Urine pH (5.0-9.0) Ur Specific [place] (1.005-1.030) Urine Protein (NEGATIVE) Urine Glucose (UA) (NEGATIVE) Urine Ketones (NEGATIVE) Urine Occult Blood (NEGATIVE) Urine Nitrite (NEGATIVE) Urine Bilirubin (NEGATIVE) Urine Urobilinogen (0.2-1.0) mg/dL Ur Leukocyte Esterase (NEGATIVE) Urine RBC (0-5) /HPF Urine WBC (0-5/HPF) /HPF Ur Epithelial Cells (NOT SEEN) /HPF Amorphous Sediment (NOT SEEN) /HPF Urine Bacteria (0-FEW/HPF) /HPF Fine Granular Casts (NOT SEEN) /LPF Ketones Negative SARS-CoV-2 RNA (JOI) (NEGATIVE) 04/08/21 04/08/21 04/08/21 Range/Units 17:22 17:58 18:17 WBC (5.0-10.0) 10^3/uL RBC (4.2-5.4) 10^6/uL Hgb (12.0-16.0) g/dL Hct (37.0-47.0) % MCV (80-100) fL MCH (27.0-34.0) pg MCHC (33.0-35.0) g/dL Plt Count (150-450) 10^3/uL Neut % (Auto) (42.2-75.2) % Lymph % (Auto) (20.5-50.1) % [place] % (Auto) (2-8) % Eos % (Auto) (1.0-3.0) % Baso % (Auto) (0.0-1.0) % Add Manual Diff Neutrophils % (Manual) (42-75) % Lymphocytes % (Manual) (20-50) % Monocytes % (Manual) (2-8) % Sodium (136-145) mmol/L Potassium (3.5-5.1) mmol/L Chloride (98-107) mmol/L Carbon Dioxide (21-32) mmol/L Anion Gap (7-13) mEq/L BUN (7-18) mg/dL Creatinine (0.55-1.02) mg/dL Est Cr Clr Drug Dosing mL/min Estimated GFR (MDRD) BUN/Creatinine Ratio (No establ ref range) Glucose (70-99) mg/dL POC Glucose 473 H* (70-99) mg/dL Lactic Acid 3.2 H* (0.4-2.0) mmol/L Calcium (8.5-10.1) mg/dL Total Bilirubin (0.2-1.0) mg/dL AST (15-37) U/L ALT (14-59) U/L Alkaline Phosphatase (46-116) U/L Troponin I High Sens (<=51) pg/mL Total Protein (6.4-8.2) g/dL Albumin (3.4-5.0) g/dL Globulin Albumin/Globulin Ratio Urine Color (YELLOW) Urine Appearance (CLEAR) Urine pH (5.0-9.0) Ur Specific [place] (1.005-1.030) Urine Protein (NEGATIVE) Urine Glucose (UA) (NEGATIVE) Urine Ketones (NEGATIVE) Urine Occult Blood (NEGATIVE) Urine Nitrite (NEGATIVE) Urine Bilirubin (NEGATIVE) Urine Urobilinogen (0.2-1.0) mg/dL Ur Leukocyte Esterase (NEGATIVE) Urine RBC (0-5) /HPF Urine WBC (0-5/HPF) /HPF Ur Epithelial Cells (NOT SEEN) /HPF Amorphous Sediment (NOT SEEN) /HPF Urine Bacteria (0-FEW/HPF) /HPF Fine Granular Casts (NOT SEEN) /LPF Ketones SARS-CoV-2 RNA (JOI) Negative (NEGATIVE) 04/08/21 04/08/21 04/08/21 Range/Units 20:34 21:15 23:20 WBC (5.0-10.0) 10^3/uL RBC (4.2-5.4) 10^6/uL Hgb (12.0-16.0) g/dL Hct (37.0-47.0) % MCV (80-100) fL MCH (27.0-34.0) pg MCHC (33.0-35.0) g/dL Plt Count (150-450) 10^3/uL Neut % (Auto) (42.2-75.2) % Lymph % (Auto) (20.5-50.1) % [place] % (Auto) (2-8) % Eos % (Auto) (1.0-3.0) % Baso % (Auto) (0.0-1.0) % Add Manual Diff Neutrophils % (Manual) (42-75) % Lymphocytes % (Manual) (20-50) % Monocytes % (Manual) (2-8) % Sodium (136-145) mmol/L Potassium (3.5-5.1) mmol/L Chloride (98-107) mmol/L Carbon Dioxide (21-32) mmol/L Anion Gap (7-13) mEq/L BUN (7-18) mg/dL Creatinine (0.55-1.02) mg/dL Est Cr Clr Drug Dosing mL/min Estimated GFR (MDRD) BUN/Creatinine Ratio (No establ ref range) Glucose (70-99) mg/dL POC Glucose 472 H* (70-99) mg/dL Lactic Acid 2.7 H* (0.4-2.0) mmol/L Calcium (8.5-10.1) mg/dL Total Bilirubin (0.2-1.0) mg/dL AST (15-37) U/L ALT (14-59) U/L Alkaline Phosphatase (46-116) U/L Troponin I High Sens (<=51) pg/mL Total Protein (6.4-8.2) g/dL Albumin (3.4-5.0) g/dL Globulin Albumin/Globulin Ratio Urine Color Yellow (YELLOW) Urine Appearance Clear (CLEAR) Urine pH 5.5 (5.0-9.0) Ur Specific [place] 1.025 (1.005-1.030) Urine Protein Trace H (NEGATIVE) Urine Glucose (UA) >=1000 H (NEGATIVE) Urine Ketones Negative (NEGATIVE) Urine Occult Blood Trace-intact H (NEGATIVE) Urine Nitrite Negative (NEGATIVE) Urine Bilirubin Negative (NEGATIVE) Urine Urobilinogen 0.2 (0.2-1.0) mg/dL Ur Leukocyte Esterase Negative (NEGATIVE) Urine RBC 0-5 (0-5) /HPF Urine WBC 0-5 (0-5/HPF) /HPF Ur Epithelial Cells Rare (NOT SEEN) /HPF Amorphous Sediment Few (NOT SEEN) /HPF Urine Bacteria Rare (0-FEW/HPF) /HPF Fine Granular Casts Few H (NOT SEEN) /LPF Ketones SARS-CoV-2 RNA (JOI) (NEGATIVE) 04/09/21 04/09/21 Range/Units 00:58 05:00 WBC (5.0-10.0) 10^3/uL RBC (4.2-5.4) 10^6/uL Hgb (12.0-16.0) g/dL Hct (37.0-47.0) % MCV (80-100) fL MCH (27.0-34.0) pg MCHC (33.0-35.0) g/dL Plt Count (150-450) 10^3/uL Neut % (Auto) (42.2-75.2) % Lymph % (Auto) (20.5-50.1) % [place] % (Auto) (2-8) % Eos % (Auto) (1.0-3.0) % Baso % (Auto) (0.0-1.0) % Add Manual Diff Neutrophils % (Manual) (42-75) % Lymphocytes % (Manual) (20-50) % Monocytes % (Manual) (2-8) % Sodium (136-145) mmol/L Potassium (3.5-5.1) mmol/L Chloride (98-107) mmol/L Carbon Dioxide (21-32) mmol/L Anion Gap (7-13) mEq/L BUN (7-18) mg/dL Creatinine (0.55-1.02) mg/dL Est Cr Clr Drug Dosing mL/min Estimated GFR (MDRD) BUN/Creatinine Ratio (No establ ref range) Glucose (70-99) mg/dL POC Glucose 292 H 169 H (70-99) mg/dL Lactic Acid (0.4-2.0) mmol/L Calcium (8.5-10.1) mg/dL Total Bilirubin (0.2-1.0) mg/dL AST (15-37) U/L ALT (14-59) U/L Alkaline Phosphatase (46-116) U/L Troponin I High Sens (<=51) pg/mL Total Protein (6.4-8.2) g/dL Albumin (3.4-5.0) g/dL Globulin Albumin/Globulin Ratio Urine Color (YELLOW) Urine Appearance (CLEAR) Urine pH (5.0-9.0) Ur Specific [place] (1.005-1.030) Urine Protein (NEGATIVE) Urine Glucose (UA) (NEGATIVE) Urine Ketones (NEGATIVE) Urine Occult Blood (NEGATIVE) Urine Nitrite (NEGATIVE) Urine Bilirubin (NEGATIVE) Urine Urobilinogen (0.2-1.0) mg/dL Ur Leukocyte Esterase (NEGATIVE) Urine RBC (0-5) /HPF Urine WBC (0-5/HPF) /HPF Ur Epithelial Cells (NOT SEEN) /HPF Amorphous Sediment (NOT SEEN) /HPF Urine Bacteria (0-FEW/HPF) /HPF Fine Granular Casts (NOT SEEN) /LPF Ketones SARS-CoV-2 RNA (JOI) (NEGATIVE) Med Orders - Current: Current Medications Acetaminophen (Acetaminophen 325 Mg Tab) 650 mg PO Q4H PRN PRN Reason: Pain (Mild 1-3)/fever Amlodipine Besylate (Amlodipine 5 Mg Tab) 5 mg PO DAILY [facility] Aspirin (Aspirin 81 Mg Tab.Chew) 81 mg PO WITHBREAKFAST [facility] Citalopram Hydrobromide (Citalopram 20 Mg Tab) 10 mg PO DAILY [facility] Dextrose/Water (50% Dextrose In Water 50 Ml Syringe) 50 ml IVPUSH Q15M PRN PRN Reason: Hypoglycemia Glucagon (Glucagon,Human Recombinant 1 Mg Vial) 1 mg IM Q15M PRN PRN Reason: Hypoglycemia Sodium Chloride (Normal Saline) 1,000 mls @ 150 mls/hr IV ASDIRECTED [facility] Last Admin: 04/09/21 03:12 Dose: 150 mls/hr Documented by: Insulin Glargine (Insulin Glarg,Human.Rec.Analog 100 Unit/Ml) 55 unit SUBCUT BEDTIME [facility] Last Admin: 04/08/21 21:00 Dose: 55 units Documented by: Insulin Human Lispro (Insulin Lispro 100 Units/Ml 3 Ml Vial) 0 unit SUBCUT WITHMEALSANDBED [facility]; Protocol Last Admin: 04/08/21 21:00 Dose: 10 units Documented by: Labetalol HCl (Labetalol 100 Mg Tab) 200 mg PO DAILY [facility] Magnesium Oxide (Magnesium Oxide 250 Mg Tab) 250 mg PO DAILY [facility] Mometasone Furoate/Formoterol Fumar (Formoterol/Mometasone 100-5 Mcg 8.8 Gm Inhaler) 2 puff IH BID [facility] Prednisone (Prednisone 20 Mg Tab) 40 mg PO WITHBREAKFAST [facility] Sodium Chloride (Sodium Chloride 0.9% 10 Ml Syringe) 10 ml FLUSH ASDIRECTED PRN PRN Reason: Keep Vein Open Discontinued Medications Sodium Chloride (Normal Saline) 1,000 mls @ 999 mls/hr IV .BOLUS ONE Stop: 04/08/21 18:06 Last Admin: 04/08/21 17:42 Dose: 999 mls/hr Documented by: Insulin Regular in 0.9 % NACL (Myxredlin In Ns 100 Unit/100 Ml) 100 unit in 100 mls @ 6.895 mls/hr IV TITRATE [facility]; Protocol Last Admin: 04/08/21 17:43 Dose: 0.1 units/kg/hr, 6.895 mls/hr Documented by: Potassium Chloride/Sodium Chloride (Normal Saline With 40 Meq Kcl) 1,000 mls @ 150 mls/hr IV ASDIRECTED [facility] Insulin Human Regular (Insulin Regular, Human 100 Units/Ml 3 Ml Vial) 10 unit IVPUSH ONETIME ONE Stop: 04/08/21 17:07 Last Admin: 04/08/21 17:41 Dose: 10 units Documented by: Ondansetron HCl (Ondansetron 4 Mg/2 Ml Sdv) 4 mg IV ONETIME ONE Stop: 04/08/21 17:07 Last Admin: 04/08/21 17:50 Dose: 4 mg Documented by: - Exam General: Alert, Oriented HEENT: Pupils Equal Lungs: Clear to Auscultation, Normal Respiratory Effort Cardiovascular: Regular Rate, Regular Rhythm GI/Abdominal Exam: Normal Bowel Sounds, Soft Back Exam: Normal Inspection Extremities: Normal Inspection, Normal Range of Motion Peripheral Pulses: 2+: Radial (L), Radial (R) Skin: Warm, Dry Neurological: No New Focal Deficit Psy/Mental Status: Alert - Patient Data Lab Results Last 24 hrs: Laboratory Results - last 24 hr 04/08/21 04/08/21 04/08/21 Range/Units 16:34 16:40 16:40 WBC 15.9 H (5.0-10.0) 10^3/uL RBC 5.20 (4.2-5.4) 10^6/uL Hgb 13.7 (12.0-16.0) g/dL Hct 42.9 (37.0-47.0) % MCV 82.5 D (80-100) fL MCH 26.3 L (27.0-34.0) pg MCHC 31.9 L (33.0-35.0) g/dL Plt Count 308 D (150-450) 10^3/uL Neut % (Auto) 83.2 H (42.2-75.2) % Lymph % (Auto) 13.8 L (20.5-50.1) % [place] % (Auto) 2.3 (2-8) % Eos % (Auto) 0.5 L (1.0-3.0) % Baso % (Auto) 0.2 (0.0-1.0) % Add Manual Diff Yes Neutrophils % (Manual) 87 H (42-75) % Lymphocytes % (Manual) 11 L (20-50) % Monocytes % (Manual) 2 (2-8) % Sodium 123 L (136-145) mmol/L Potassium 4.3 (3.5-5.1) mmol/L Chloride 84 L (98-107) mmol/L Carbon Dioxide 28 (21-32) mmol/L Anion Gap 15.3 H (7-13) mEq/L BUN 38 H (7-18) mg/dL Creatinine 1.56 H (0.55-1.02) mg/dL Est Cr Clr Drug Dosing 36.35 mL/min Estimated GFR (MDRD) 34 BUN/Creatinine Ratio 24.4 (No establ ref range) Glucose 812 H* (70-99) mg/dL POC Glucose > 600 H* (70-99) mg/dL Lactic Acid (0.4-2.0) mmol/L Calcium 9.3 (8.5-10.1) mg/dL Total Bilirubin 0.9 (0.2-1.0) mg/dL AST 38 H (15-37) U/L ALT 77 H (14-59) U/L Alkaline Phosphatase 227 H (46-116) U/L Troponin I High Sens 5 (<=51) pg/mL Total Protein 7.1 (6.4-8.2) g/dL Albumin 3.2 L (3.4-5.0) g/dL Globulin 3.9 Albumin/Globulin Ratio 0.82 Urine Color (YELLOW) Urine Appearance (CLEAR) Urine pH (5.0-9.0) Ur Specific [place] (1.005-1.030) Urine Protein (NEGATIVE) Urine Glucose (UA) (NEGATIVE) Urine Ketones (NEGATIVE) Urine Occult Blood (NEGATIVE) Urine Nitrite (NEGATIVE) Urine Bilirubin (NEGATIVE) Urine Urobilinogen (0.2-1.0) mg/dL Ur Leukocyte Esterase (NEGATIVE) Urine RBC (0-5) /HPF Urine WBC (0-5/HPF) /HPF Ur Epithelial Cells (NOT SEEN) /HPF Amorphous Sediment (NOT SEEN) /HPF Urine Bacteria (0-FEW/HPF) /HPF Fine Granular Casts (NOT SEEN) /LPF Ketones Negative SARS-CoV-2 RNA (JOI) (NEGATIVE) 04/08/21 04/08/21 04/08/21 Range/Units 17:22 17:58 18:17 WBC (5.0-10.0) 10^3/uL RBC (4.2-5.4) 10^6/uL Hgb (12.0-16.0) g/dL Hct (37.0-47.0) % MCV (80-100) fL MCH (27.0-34.0) pg MCHC (33.0-35.0) g/dL Plt Count (150-450) 10^3/uL Neut % (Auto) (42.2-75.2) % Lymph % (Auto) (20.5-50.1) % [place] % (Auto) (2-8) % Eos % (Auto) (1.0-3.0) % Baso % (Auto) (0.0-1.0) % Add Manual Diff Neutrophils % (Manual) (42-75) % Lymphocytes % (Manual) (20-50) % Monocytes % (Manual) (2-8) % Sodium (136-145) mmol/L Potassium (3.5-5.1) mmol/L Chloride (98-107) mmol/L Carbon Dioxide (21-32) mmol/L Anion Gap (7-13) mEq/L BUN (7-18) mg/dL Creatinine (0.55-1.02) mg/dL Est Cr Clr Drug Dosing mL/min Estimated GFR (MDRD) BUN/Creatinine Ratio (No establ ref range) Glucose (70-99) mg/dL POC Glucose 473 H* (70-99) mg/dL Lactic Acid 3.2 H* (0.4-2.0) mmol/L Calcium (8.5-10.1) mg/dL Total Bilirubin (0.2-1.0) mg/dL AST (15-37) U/L ALT (14-59) U/L Alkaline Phosphatase (46-116) U/L Troponin I High Sens (<=51) pg/mL Total Protein (6.4-8.2) g/dL Albumin (3.4-5.0) g/dL Globulin Albumin/Globulin Ratio Urine Color (YELLOW) Urine Appearance (CLEAR) Urine pH (5.0-9.0) Ur Specific [place] (1.005-1.030) Urine Protein (NEGATIVE) Urine Glucose (UA) (NEGATIVE) Urine Ketones (NEGATIVE) Urine Occult Blood (NEGATIVE) Urine Nitrite (NEGATIVE) Urine Bilirubin (NEGATIVE) Urine Urobilinogen (0.2-1.0) mg/dL Ur Leukocyte Esterase (NEGATIVE) Urine RBC (0-5) /HPF Urine WBC (0-5/HPF) /HPF Ur Epithelial Cells (NOT SEEN) /HPF Amorphous Sediment (NOT SEEN) /HPF Urine Bacteria (0-FEW/HPF) /HPF Fine Granular Casts (NOT SEEN) /LPF Ketones SARS-CoV-2 RNA (JOI) Negative (NEGATIVE) 04/08/21 04/08/21 04/08/21 Range/Units 20:34 21:15 23:20 WBC (5.0-10.0) 10^3/uL RBC (4.2-5.4) 10^6/uL Hgb (12.0-16.0) g/dL Hct (37.0-47.0) % MCV (80-100) fL MCH (27.0-34.0) pg MCHC (33.0-35.0) g/dL Plt Count (150-450) 10^3/uL Neut % (Auto) (42.2-75.2) % Lymph % (Auto) (20.5-50.1) % [place] % (Auto) (2-8) % Eos % (Auto) (1.0-3.0) % Baso % (Auto) (0.0-1.0) % Add Manual Diff Neutrophils % (Manual) (42-75) % Lymphocytes % (Manual) (20-50) % Monocytes % (Manual) (2-8) % Sodium (136-145) mmol/L Potassium (3.5-5.1) mmol/L Chloride (98-107) mmol/L Carbon Dioxide (21-32) mmol/L Anion Gap (7-13) mEq/L BUN (7-18) mg/dL Creatinine (0.55-1.02) mg/dL Est Cr Clr Drug Dosing mL/min Estimated GFR (MDRD) BUN/Creatinine Ratio (No establ ref range) Glucose (70-99) mg/dL POC Glucose 472 H* (70-99) mg/dL Lactic Acid 2.7 H* (0.4-2.0) mmol/L Calcium (8.5-10.1) mg/dL Total Bilirubin (0.2-1.0) mg/dL AST (15-37) U/L ALT (14-59) U/L Alkaline Phosphatase (46-116) U/L Troponin I High Sens (<=51) pg/mL Total Protein (6.4-8.2) g/dL Albumin (3.4-5.0) g/dL Globulin Albumin/Globulin Ratio Urine Color Yellow (YELLOW) Urine Appearance Clear (CLEAR) Urine pH 5.5 (5.0-9.0) Ur Specific [place] 1.025 (1.005-1.030) Urine Protein Trace H (NEGATIVE) Urine Glucose (UA) >=1000 H (NEGATIVE) Urine Ketones Negative (NEGATIVE) Urine Occult Blood Trace-intact H (NEGATIVE) Urine Nitrite Negative (NEGATIVE) Urine Bilirubin Negative (NEGATIVE) Urine Urobilinogen 0.2 (0.2-1.0) mg/dL Ur Leukocyte Esterase Negative (NEGATIVE) Urine RBC 0-5 (0-5) /HPF Urine WBC 0-5 (0-5/HPF) /HPF Ur Epithelial Cells Rare (NOT SEEN) /HPF Amorphous Sediment Few (NOT SEEN) /HPF Urine Bacteria Rare (0-FEW/HPF) /HPF Fine Granular Casts Few H (NOT SEEN) /LPF Ketones SARS-CoV-2 RNA (JOI) (NEGATIVE) 04/09/21 04/09/21 Range/Units 00:58 05:00 WBC (5.0-10.0) 10^3/uL RBC (4.2-5.4) 10^6/uL Hgb (12.0-16.0) g/dL Hct (37.0-47.0) % MCV (80-100) fL MCH (27.0-34.0) pg MCHC (33.0-35.0) g/dL Plt Count (150-450) 10^3/uL Neut % (Auto) (42.2-75.2) % Lymph % (Auto) (20.5-50.1) % [place] % (Auto) (2-8) % Eos % (Auto) (1.0-3.0) % Baso % (Auto) (0.0-1.0) % Add Manual Diff Neutrophils % (Manual) (42-75) % Lymphocytes % (Manual) (20-50) % Monocytes % (Manual) (2-8) % Sodium (136-145) mmol/L Potassium (3.5-5.1) mmol/L Chloride (98-107) mmol/L Carbon Dioxide (21-32) mmol/L Anion Gap (7-13) mEq/L BUN (7-18) mg/dL Creatinine (0.55-1.02) mg/dL Est Cr Clr Drug Dosing mL/min Estimated GFR (MDRD) BUN/Creatinine Ratio (No establ ref range) Glucose (70-99) mg/dL POC Glucose 292 H 169 H (70-99) mg/dL Lactic Acid (0.4-2.0) mmol/L Calcium (8.5-10.1) mg/dL Total Bilirubin (0.2-1.0) mg/dL AST (15-37) U/L ALT (14-59) U/L Alkaline Phosphatase (46-116) U/L Troponin I High Sens (<=51) pg/mL Total Protein (6.4-8.2) g/dL Albumin (3.4-5.0) g/dL Globulin Albumin/Globulin Ratio Urine Color (YELLOW) Urine Appearance (CLEAR) Urine pH (5.0-9.0) Ur Specific [place] (1.005-1.030) Urine Protein (NEGATIVE) Urine Glucose (UA) (NEGATIVE) Urine Ketones (NEGATIVE) Urine Occult Blood (NEGATIVE) Urine Nitrite (NEGATIVE) Urine Bilirubin (NEGATIVE) Urine Urobilinogen (0.2-1.0) mg/dL Ur Leukocyte Esterase (NEGATIVE) Urine RBC (0-5) /HPF Urine WBC (0-5/HPF) /HPF Ur Epithelial Cells (NOT SEEN) /HPF Amorphous Sediment (NOT SEEN) /HPF Urine Bacteria (0-FEW/HPF) /HPF Fine Granular Casts (NOT SEEN) /LPF Ketones SARS-CoV-2 RNA (JOI) (NEGATIVE) Result Diagrams: 04/08/21 16:40 04/09/21 06:20 Sepsis Event Note - Evaluation Sepsis Screening Result: No Definite Risk - Focused Exam Vital Signs: Vital Signs Temp Pulse Resp BP Pulse Ox 04/09/21 04:00 99.2 F 77 18 137/83 94 L 04/08/21 18:34 98.8 F 98 16 126/86 97 - Problem List & Annotations (1) DM2 (diabetes mellitus, type 2) SNOMED Code(s): 46592922 Code(s): E11.9 - TYPE 2 DIABETES MELLITUS WITHOUT COMPLICATIONS Status: Acute Current Visit: Yes (2) Hyperglycemia due to type 2 diabetes mellitus SNOMED Code(s): 169940553791428, 170697613535814 Code(s): E11.65 - TYPE 2 DIABETES MELLITUS WITH HYPERGLYCEMIA Status: Acute Current Visit: No Qualifiers: 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: without assisted use Qualified Code(s): E11.65 - Type 2 diabetes mellitus with hyperglycemia (3) Steroid-induced hyperglycemia SNOMED Code(s): 229167209 Code(s): R73.9 - HYPERGLYCEMIA, UNSPECIFIED; T38.0X5A - ADVERSE EFFECT OF GLUCOCORT/SYNTH ANALOG, INIT Status: Acute Current Visit: No (4) HTN (hypertension) SNOMED Code(s): 80967626 Code(s): I10 - ESSENTIAL (PRIMARY) HYPERTENSION Status: Acute Current Visit: Yes (5) Anxiety SNOMED Code(s): 37054927 Code(s): F41.9 - ANXIETY DISORDER, UNSPECIFIED Status: Acute Current Visit: Yes (6) Temporal arteritis SNOMED Code(s): 496977115 Code(s): M31.6 - OTHER GIANT CELL ARTERITIS Status: Acute Current Visit: Yes - Problem List Review Problem List Initiated/Reviewed/Updated: Yes - My Orders Last 24 Hours: My Active Orders 04/08/21 18:34 Oxygen Therapy [RC] PRN VTE/DVT Education [RC] 08,20 Vital Signs [RC] 00,04,08,12,16,20 Acetaminophen [TylenoL] 650 mg PO Q4H PRN Resuscitation Status Routine 04/08/21 19:00 Blood Glucose Check, Bedside [RC] 01,05,09,13,17,21 Dextrose 50% in Water 50 ml IVPUSH Q15M PRN Glucagon,Human Recombinant [GlucaGen] 1 mg IM Q15M PRN 04/08/21 19:30 Sodium Chloride 0.9% [Normal Saline] 1,000 ml IV ASDIRECTED 04/08/21 21:00 Insulin Glarg,Human.Rec.Analog [LantUS] 55 unit SUBCUT BEDTIME Insulin Lispro [HumaLOG] See Protocol SUBCUT WITHMEALSANDBED 04/09/21 00:56 Up ad Divine [RC] ASDIRECTED 04/09/21 06:00 CMP [COMPREHENSIVE METABOLIC PN,CMP] [CHEM] Routine LACTIC ACID [CHEM] Routine 04/09/21 Breakfast Consistent Carbohydrate Diet [DIET] 04/09/21 08:00 Aspirin 81 mg PO WITHBREAKFAST predniSONE 40 mg PO WITHBREAKFAST 04/09/21 09:00 Citalopram [Celexa] 10 mg PO DAILY Labetalol [Normodyne] 200 mg PO DAILY Magnesium Oxide 250 mg PO DAILY Mometasone/Formoterol [Dulera 100-5 MCG] 2 puff IH BID amLODIPine [Norvasc] 5 mg PO DAILY - Plan Plan:: Patient is a 60-year-old female with a history of type 2 diabetes on insulin therapy who presents with steroid-induced hyperglycemia due to recent p.o. prednisone for temporal arteritis # Hyperglycemia, HHS -Glucose significantly elevated at 812 upon admission, decreased to 470 after 10 units normal insulin -Secondary to significant prednisone given diagnosis temporal arteritis, patient recently had increase in her Lantus at home and had just the addition of aspart yesterday -DC'd insulin drip, ordered her home Lantus 55 units, will do medium dose sliding scale insulin, carb controlled diet, significant fluid resuscitation -Q4 hour glucose checks - glucose significantly improved this AM at 169 -Elevated lactate at 3.2 - repeat 2.7 - final repeat pending but anion gap normal # EFFIE - unclear baseline but patient denies any kidney disease - K 4.3 - anion gap secondary to lactic acidosis from dehydration - creatinine improved from 1.56-0.94, creatinine of 1 was found in chart from 2017 appears to be near baseline # Temporal arteritis -Continue p.o. prednisone 50 mg p.o. daily -Patient states that she has a follow-up appointment with rheumatology tomorrow to discuss further management # Chronic medical conditions Hypertensioncontinue labetalol 200 mg p.o. daily, continue amlodipine Anxiety/depression -continue citalopram 10 mg daily Fluid status 150 mL an hour NS Electrolytesno acute concerns Dietcarb controlled Dispopatient is medically stable for discharge will discharge to home today
--- NOTE | 2021-04-09 06:46 | PCM.DCSUM1 ---
Discharge Summary - Hospital Course Free Text/Narrative:: 60-year-old female with a past medical history of type 2 diabetes on insulin, recent diagnosis of temporal arteritis on high-dose p.o. prednisone, hypertension who presents with fatigue, hyperglycemia. Patient states that approximately 2 weeks ago she was diagnosed with what her primary believes is temporal arteritis. Patient states that she had been having severe jaw pain, left-sided temporal pain. States that she had some labs which are similar elevated ESR and CRP and was started on significant prednisone 60 mg daily. She states that she felt better but over the last 3 to 4 days she has had increased bilateral blurry vision, generalized fatigue, increased thirst, increased urination. In the emergency department she was hemodynamically stable laboratory values included a sodium 123 with corrected to 134, potassium 4.3, creatinine 1.56 I am increased her baseline, WBC 15.9, hemoglobin 13.7, platelet count 388, AST 38, ALT 77, lactate 3.2. Upon discussion with patient she reiterates the above story. Patient states that the vision changes in general malaise she otherwise feels well. Patient denies any chest pains or pressures, abdominal pain, nausea or vomiting. Patient states that she has been eating today but her oral intake has been otherwise well. She states that she uses 54 units of Lantus at night and this was increased recently with her steroids she also just restarted yesterday on aspart 5 3 times daily with meals. States that her glucose monitor Reading "H" which she has not seen before she was confused that is why took her longer to come in. Patient was initially started on insulin drip but this was discontinued quickly as patient's blood sugar significantly improved with 10 units of normal insulin. She was given her usual 55 units of long-acting insulin at night and a medium sliding scale insulin was implemented. Patient's blood sugar significantly improved. Patient also had an acute kidney injury and was dehydrated and was given significant volume resuscitation. Repeat labs the following morning sh owed improvement with normalization of her anion gap, creatinine to baseline, blood glucose levels in the 160s. Prolonged discussion was had with patient about utilizing her home long-acting insulin at the current dose and the changing to a sliding scale insulin for her short acting which was provided to her. Patient states that she has insulin supplies, meters into strips. Patient to follow-up with her PCP after rheumatology visit. 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 use Qualified Code(s): E11.65 - Type 2 diabetes mellitus with hyperglycemia (3) Steroid-induced hyperglycemia SNOMED Code(s): 767430771 ICD Code: R73.9 - HYPERGLYCEMIA, UNSPECIFIED; T38.0X5A - ADVERSE EFFECT OF GLUCOCORT/SYNTH ANALOG, INIT Status: Acute Current Visit: No (4) HTN (hypertension) SNOMED Code(s): 44597406 ICD Code: I10 - ESSENTIAL (PRIMARY) HYPERTENSION Status: Acute Current Visit: Yes (5) Anxiety SNOMED Code(s): 30044072 ICD Code: F41.9 - ANXIETY DISORDER, UNSPECIFIED Status: Acute Current Visit: Yes (6) Temporal arteritis SNOMED Code(s): 905360893 ICD Code: M31.6 - OTHER GIANT CELL ARTERITIS Status: Acute Current Visit: Yes - Patient Instructions Diet: Diabetic Diet Activity: As Tolerated Driving: May Drive Today - Discharge Plan *PRESCRIPTION DRUG MONITORING PROGRAM REVIEWED*: Not Applicable *COPY OF PRESCRIPTION DRUG MONITORING REPORT IN PATIENT EVIN: Not Applicable Home Medications: Home Meds Budesonide/Formoterol Fumarate [Symbicort 80-4.5 Mcg Inhaler] 1 puff IH DAILY 10/09/16 [History] Citalopram Hydrobromide [Citalopram HBr] 10 mg PO DAILY 10/09/16 [History] metFORMIN [Glucophage] 1,000 mg PO BID 10/09/16 [History] Aspirin [Esther Chewable] 81 mg PO DAILY 10/21/16 [History] Labetalol HCl [Labetalol] 200 mg PO DAILY 10/21/16 [History] Loratadine/Pseudoephedrine [Loratadine-Pseudoephed 10-240] 1 each PO DAILY 10/21/16 [History] Magnesium 250 mg PO DAILY 10/21/16 [History] Multivitamin [Multivitamins] 1 tab PO DAILY 10/21/16 [History] Zinc 50 mg PO DAILY 10/21/16 [History] amLODIPine [Norvasc] 5 mg PO DAILY 10/21/16 [History] Insulin Aspart [Insulin Aspart Flexpen] 04/09/21 [History] Insulin Glargine,Hum.Rec.Anlog [Lantus Solostar] 55 unit SQ BEDTIME 04/09/21 [History] Forms: ED Department Discharge Referrals: PCP,None [Primary Care Provider] - - Discharge Summary/Plan Comment DC Time >30 min.: Yes Total # of Minutes for Discharge Time: 30 - Patient Data Vitals - Most Recent: Last Vital Signs Temp 99.2 F 04/09/21 04:00 Pulse 77 04/09/21 04:00 Resp 18 04/09/21 04:00 BP 137/83 04/09/21 04:00 Pulse Ox 94 L 04/09/21 04:00 Weight - Most Recent: 152 lb 6.4 oz I&O - Last 24 hours: Intake & Output 04/08/21 04/08/21 04/09/21 14:59 22:59 06:59 Intake Total 700 Output Total 200 Balance 500 Lab Results - Last 24 hrs: Laboratory Results - last 24 hr 04/08/21 04/08/21 04/08/21 Range/Units 16:34 16:40 16:40 WBC 15.9 H (5.0-10.0) 10^3/uL RBC 5.20 (4.2-5.4) 10^6/uL Hgb 13.7 (12.0-16.0) g/dL Hct 42.9 (37.0-47.0) % MCV 82.5 D (80-100) fL MCH 26.3 L (27.0-34.0) pg MCHC 31.9 L (33.0-35.0) g/dL Plt Count 308 D (150-450) 10^3/uL Neut % (Auto) 83.2 H (42.2-75.2) % Lymph % (Auto) 13.8 L (20.5-50.1) % [place] % (Auto) 2.3 (2-8) % Eos % (Auto) 0.5 L (1.0-3.0) % Baso % (Auto) 0.2 (0.0-1.0) % Add Manual Diff Yes Neutrophils % (Manual) 87 H (42-75) % Lymphocytes % (Manual) 11 L (20-50) % Monocytes % (Manual) 2 (2-8) % Sodium 123 L (136-145) mmol/L Potassium 4.3 (3.5-5.1) mmol/L Chloride 84 L (98-107) mmol/L Carbon Dioxide 28 (21-32) mmol/L Anion Gap 15.3 H (7-13) mEq/L BUN 38 H (7-18) mg/dL Creatinine 1.56 H (0.55-1.02) mg/dL Est Cr Clr Drug Dosing 36.35 mL/min Estimated GFR (MDRD) 34 BUN/Creatinine Ratio 24.4 (No establ ref range) Glucose 812 H* (70-99) mg/dL POC Glucose > 600 H* (70-99) mg/dL Lactic Acid (0.4-2.0) mmol/L Calcium 9.3 (8.5-10.1) mg/dL Total Bilirubin 0.9 (0.2-1.0) mg/dL AST 38 H (15-37) U/L ALT 77 H (14-59) U/L Alkaline Phosphatase 227 H (46-116) U/L Troponin I High Sens 5 (<=51) pg/mL Total Protein 7.1 (6.4-8.2) g/dL Albumin 3.2 L (3.4-5.0) g/dL Globulin 3.9 Albumin/Globulin Ratio 0.82 Urine Color (YELLOW) Urine Appearance (CLEAR) Urine pH (5.0-9.0) Ur Specific [place] (1.005-1.030) Urine Protein (NEGATIVE) Urine Glucose (UA) (NEGATIVE) Urine Ketones (NEGATIVE) Urine Occult Blood (NEGATIVE) Urine Nitrite (NEGATIVE) Urine Bilirubin (NEGATIVE) Urine Urobilinogen (0.2-1.0) mg/dL Ur Leukocyte Esterase (NEGATIVE) Urine RBC (0-5) /HPF Urine WBC (0-5/HPF) /HPF Ur Epithelial Cells (NOT SEEN) /HPF Amorphous Sediment (NOT SEEN) /HPF Urine Bacteria (0-FEW/HPF) /HPF Fine Granular Casts (NOT SEEN) /LPF Ketones Negative SARS-CoV-2 RNA (JOI) (NEGATIVE) 04/08/21 04/08/21 04/08/21 Range/Units 17:22 17:58 18:17 WBC (5.0-10.0) 10^3/uL RBC (4.2-5.4) 10^6/uL Hgb (12.0-16.0) g/dL Hct (37.0-47.0) % MCV (80-100) fL MCH (27.0-34.0) pg MCHC (33.0-35.0) g/dL Plt Count (150-450) 10^3/uL Neut % (Auto) (42.2-75.2) % Lymph % (Auto) (20.5-50.1) % [place] % (Auto) (2-8) % Eos % (Auto) (1.0-3.0) % Baso % (Auto) (0.0-1.0) % Add Manual Diff Neutrophils % (Manual) (42-75) % Lymphocytes % (Manual) (20-50) % Monocytes % (Manual) (2-8) % Sodium (136-145) mmol/L Potassium (3.5-5.1) mmol/L Chloride (98-107) mmol/L Carbon Dioxide (21-32) mmol/L Anion Gap (7-13) mEq/L BUN (7-18) mg/dL Creatinine (0.55-1.02) mg/dL Est Cr Clr Drug Dosing mL/min Estimated GFR (MDRD) BUN/Creatinine Ratio (No establ ref range) Glucose (70-99) mg/dL POC Glucose 473 H* (70-99) mg/dL Lactic Acid 3.2 H* (0.4-2.0) mmol/L Calcium (8.5-10.1) mg/dL Total Bilirubin (0.2-1.0) mg/dL AST (15-37) U/L ALT (14-59) U/L Alkaline Phosphatase (46-116) U/L Troponin I High Sens (<=51) pg/mL Total Protein (6.4-8.2) g/dL Albumin (3.4-5.0) g/dL Globulin Albumin/Globulin Ratio Urine Color (YELLOW) Urine Appearance (CLEAR) Urine pH (5.0-9.0) Ur Specific [place] (1.005-1.030) Urine Protein (NEGATIVE) Urine Glucose (UA) (NEGATIVE) Urine Ketones (NEGATIVE) Urine Occult Blood (NEGATIVE) Urine Nitrite (NEGATIVE) Urine Bilirubin (NEGATIVE) Urine Urobilinogen (0.2-1.0) mg/dL Ur Leukocyte Esterase (NEGATIVE) Urine RBC (0-5) /HPF Urine WBC (0-5/HPF) /HPF Ur Epithelial Cells (NOT SEEN) /HPF Amorphous Sediment (NOT SEEN) /HPF Urine Bacteria (0-FEW/HPF) /HPF Fine Granular Casts (NOT SEEN) /LPF Ketones SARS-CoV-2 RNA (JOI) Negative (NEGATIVE) 04/08/21 04/08/21 04/08/21 Range/Units 20:34 21:15 23:20 WBC (5.0-10.0) 10^3/uL RBC (4.2-5.4) 10^6/uL Hgb (12.0-16.0) g/dL Hct (37.0-47.0) % MCV (80-100) fL MCH (27.0-34.0) pg MCHC (33.0-35.0) g/dL Plt Count (150-450) 10^3/uL Neut % (Auto) (42.2-75.2) % Lymph % (Auto) (20.5-50.1) % [place] % (Auto) (2-8) % Eos % (Auto) (1.0-3.0) % Baso % (Auto) (0.0-1.0) % Add Manual Diff Neutrophils % (Manual) (42-75) % Lymphocytes % (Manual) (20-50) % Monocytes % (Manual) (2-8) % Sodium (136-145) mmol/L Potassium (3.5-5.1) mmol/L Chloride (98-107) mmol/L Carbon Dioxide (21-32) mmol/L Anion Gap (7-13) mEq/L BUN (7-18) mg/dL Creatinine (0.55-1.02) mg/dL Est Cr Clr Drug Dosing mL/min Estimated GFR (MDRD) BUN/Creatinine Ratio (No establ ref range) Glucose (70-99) mg/dL POC Glucose 472 H* (70-99) mg/dL Lactic Acid 2.7 H* (0.4-2.0) mmol/L Calcium (8.5-10.1) mg/dL Total Bilirubin (0.2-1.0) mg/dL AST (15-37) U/L ALT (14-59) U/L Alkaline Phosphatase (46-116) U/L Troponin I High Sens (<=51) pg/mL Total Protein (6.4-8.2) g/dL Albumin (3.4-5.0) g/dL Globulin Albumin/Globulin Ratio Urine Color Yellow (YELLOW) Urine Appearance Clear (CLEAR) Urine pH 5.5 (5.0-9.0) Ur Specific [place] 1.025 (1.005-1.030) Urine Protein Trace H (NEGATIVE) Urine Glucose (UA) >=1000 H (NEGATIVE) Urine Ketones Negative (NEGATIVE) Urine Occult Blood Trace-intact H (NEGATIVE) Urine Nitrite Negative (NEGATIVE) Urine Bilirubin Negative (NEGATIVE) Urine Urobilinogen 0.2 (0.2-1.0) mg/dL Ur Leukocyte Esterase Negative (NEGATIVE) Urine RBC 0-5 (0-5) /HPF Urine WBC 0-5 (0-5/HPF) /HPF Ur Epithelial Cells Rare (NOT SEEN) /HPF Amorphous Sediment Few (NOT SEEN) /HPF Urine Bacteria Rare (0-FEW/HPF) /HPF Fine Granular Casts Few H (NOT SEEN) /LPF Ketones SARS-CoV-2 RNA (JOI) (NEGATIVE) 04/09/21 04/09/21 Range/Units 00:58 05:00 WBC (5.0-10.0) 10^3/uL RBC (4.2-5.4) 10^6/uL Hgb (12.0-16.0) g/dL Hct (37.0-47.0) % MCV (80-100) fL MCH (27.0-34.0) pg MCHC (33.0-35.0) g/dL Plt Count (150-450) 10^3/uL Neut % (Auto) (42.2-75.2) % Lymph % (Auto) (20.5-50.1) % [place] % (Auto) (2-8) % Eos % (Auto) (1.0-3.0) % Baso % (Auto) (0.0-1.0) % Add Manual Diff Neutrophils % (Manual) (42-75) % Lymphocytes % (Manual) (20-50) % Monocytes % (Manual) (2-8) % Sodium (136-145) mmol/L Potassium (3.5-5.1) mmol/L Chloride (98-107) mmol/L Carbon Dioxide (21-32) mmol/L Anion Gap (7-13) mEq/L BUN (7-18) mg/dL Creatinine (0.55-1.02) mg/dL Est Cr Clr Drug Dosing mL/min Estimated GFR (MDRD) BUN/Creatinine Ratio (No establ ref range) Glucose (70-99) mg/dL POC Glucose 292 H 169 H (70-99) mg/dL Lactic Acid (0.4-2.0) mmol/L Calcium (8.5-10.1) mg/dL Total Bilirubin (0.2-1.0) mg/dL AST (15-37) U/L ALT (14-59) U/L Alkaline Phosphatase (46-116) U/L Troponin I High Sens (<=51) pg/mL Total Protein (6.4-8.2) g/dL Albumin (3.4-5.0) g/dL Globulin Albumin/Globulin Ratio Urine Color (YELLOW) Urine Appearance (CLEAR) Urine pH (5.0-9.0) Ur Specific [place] (1.005-1.030) Urine Protein (NEGATIVE) Urine Glucose (UA) (NEGATIVE) Urine Ketones (NEGATIVE) Urine Occult Blood (NEGATIVE) Urine Nitrite (NEGATIVE) Urine Bilirubin (NEGATIVE) Urine Urobilinogen (0.2-1.0) mg/dL Ur Leukocyte Esterase (NEGATIVE) Urine RBC (0-5) /HPF Urine WBC (0-5/HPF) /HPF Ur Epithelial Cells (NOT SEEN) /HPF Amorphous Sediment (NOT SEEN) /HPF Urine Bacteria (0-FEW/HPF) /HPF Fine Granular Casts (NOT SEEN) /LPF Ketones SARS-CoV-2 RNA (JOI) (NEGATIVE) Med Orders - Current: Current Medications Acetaminophen (Acetaminophen 325 Mg Tab) 650 mg PO Q4H PRN PRN Reason: Pain (Mild 1-3)/fever Amlodipine Besylate (Amlodipine 5 Mg Tab) 5 mg PO DAILY [facility] Aspirin (Aspirin 81 Mg Tab.Chew) 81 mg PO WITHBREAKFAST [facility] Citalopram Hydrobromide (Citalopram 20 Mg Tab) 10 mg PO DAILY [facility] Dextrose/Water (50% Dextrose In Water 50 Ml Syringe) 50 ml IVPUSH Q15M PRN PRN Reason: Hypoglycemia Glucagon (Glucagon,Human Recombinant 1 Mg Vial) 1 mg IM Q15M PRN PRN Reason: Hypoglycemia Sodium Chloride (Normal Saline) 1,000 mls @ 150 mls/hr IV ASDIRECTED [facility] Last Admin: 04/09/21 03:12 Dose: 150 mls/hr Documented by: Insulin Glargine (Insulin Glarg,Human.Rec.Analog 100 Unit/Ml) 55 unit SUBCUT BEDTIME [facility] Last Admin: 04/08/21 21:00 Dose: 55 units Documented by: Insulin Human Lispro (Insulin Lispro 100 Units/Ml 3 Ml Vial) 0 unit SUBCUT WITH MEALSANDBED [facility]; Protocol Last Admin: 04/08/21 21:00 Dose: 10 units Documented by: Labetalol HCl (Labetalol 100 Mg Tab) 200 mg PO DAILY [facility] Magnesium Oxide (Magnesium Oxide 250 Mg Tab) 250 mg PO DAILY [facility] Mometasone Furoate/Formoterol Fumar (Formoterol/Mometasone 100-5 Mcg 8.8 Gm Inhaler) 2 puff IH BID [facility] Prednisone (Prednisone 20 Mg Tab) 40 mg PO WITHBREAKFAST [facility] Sodium Chloride (Sodium Chloride 0.9% 10 Ml Syringe) 10 ml FLUSH ASDIRECTED PRN PRN Reason: Keep Vein Open Discontinued Medications Sodium Chloride (Normal Saline) 1,000 mls @ 999 mls/hr IV .BOLUS ONE Stop: 04/08/21 18:06 Last Admin: 04/08/21 17:42 Dose: 999 mls/hr Documented by: Insulin Regular in 0.9 % NACL (Myxredlin In Ns 100 Unit/100 Ml) 100 unit in 100 mls @ 6.895 mls/hr IV TITRATE [facility]; Protocol Last Admin: 04/08/21 17:43 Dose: 0.1 units/kg/hr, 6.895 mls/hr Documented by: Potassium Chloride/Sodium Chloride (Normal Saline With 40 Meq Kcl) 1,000 mls @ 150 mls/hr IV ASDIRECTED [facility]IL[facility] Insulin Human Regular (Insulin Regular, Human 100 Units/Ml 3 Ml Vial) 10 unit IVPUSH ONETIME ONE Stop: 04/08/21 17:07 Last Admin: 04/08/21 17:41 Dose: 10 units Documented by: Ondansetron HCl (Ondansetron 4 Mg/2 Ml Sdv) 4 mg IV ONETIME ONE Stop: 04/08/21 17:07 Last Admin: 04/08/21 17:50 Dose: 4 mg Documented by:
[2021-04-09 06:59] LABS: ANION GAP 11.6 mEq/L (7-13); CHLORIDE,CL 99 mmol/L (98-107); SODIUM,NA 137 mmol/L (136-145)
[2021-04-09] MEDS ORDERED: Aspirin 81 MG Tab.Chew PO SCH (08:00)
[2021-04-09] MEDS ORDERED: predniSONE 20 MG Tab PO SCH (08:00)
[2021-04-09 08:41] VITALS: BP 128/70; PULSE 68
[2021-04-09] MEDS ORDERED: Formoterol/Mometasone 100-5 MCG 8.8 GM Inhaler IH SCH (09:00)
[2021-04-09] MEDS ORDERED: Citalopram 20 MG Tab PO SCH (09:00)
[2021-04-09] MEDS ORDERED: Labetalol 100 MG Tab PO SCH (09:00)
[2021-04-09] MEDS ORDERED: amLODIPine 5 MG Tab PO SCH (09:00)
[2021-04-09] MEDS: Insulin Lispro 100 Units/ML 3 ML Vial SUBCUT SCH (09:36)
== END 2021-04-09 08:40 | disposition home or self-care (01) ==
LOC: DL.ED 15:37 → DL.MS 18:25
PROVIDERS: ADMIT Internal Medicine; ATTEND Internal Medicine
DX: E11.65 Type 2 diabetes mellitus with hyperglycemia (principal); T38.0X5A Adverse effect of glucocorticoids and synthetic analogues, initial encounter; M31.6 Other giant cell arteritis; I10 Essential (primary) hypertension; E66.9 Obesity, unspecified; J45.909 Unspecified asthma, uncomplicated; F41.9 Anxiety disorder, unspecified; N17.9 Acute kidney failure, unspecified; Z20.822 Contact with and (suspected) exposure to COVID-19; Z79.4 Long term (current) use of insulin; Z88.0 Allergy status to penicillin; Z79.84 Long term (current) use of oral hypoglycemic drugs; Z79.82 Long term (current) use of aspirin; Z79.899 Other long term (current) drug therapy
CPT/HCPCS: 36415; 80053; 81001; 82009; 82947; 83605; 84484; 85025; 96374; 99285-25; A9270-GY; G0378; J1815-GY; J2405; J7030; J7512; U0002

== ENCOUNTER 2021-04-11 16:40 | Inpatient (IN) | payer OTHER ==
[2021-04-11] MEDS ORDERED: Sodium Chloride 0.9% 10 ML Syringe FLUSH PRN (16:59)
--- NOTE | 2021-04-11 17:34 | EDM.PDOC ---
ED HPI GENERAL MEDICAL PROBLEM - General Stated Complaint: HIGH BLOOD SUGAR Time Seen by Provider: 04/11/21 17:22 Source of Information: Reports: Patient History Limitations: Reports: No Limitations - History of Present Illness INITIAL COMMENTS - FREE TEXT/NARRATIVE: 60 y/o F c/o high blood sugars, blurry vision and temporal tenderness. Pt has been being treated for temporal arteritis and has been being treated with high dose steroids. She was seen her on Wednesday for the same thing and was admitted overnight. The pt was discharged on Wed after her glucose was brought under control and switched to a sliding scale to better help her manage her sugars.. The pt went to see her Dr in [place] on and had more labs drawn for her temporal arteritis and noticed that night that her sugars read high on her glucometer. Her neurosurgeon had her draw labs today at the [facility] here and upon seeing her elevated glucose over 600 today had her come to the ER. She is scheduled to see and neurosurgeon to have both of her temporal arteries biopsied. Today the pt reports increased urination, increase thirst, continued blurry vision. She has had blurry vision problems for 5 days and it seems to be worsening.On Wednesday at her Drs appointment in [place] she mentioned the blurry vision to her provider to informed her to go to her eye doctor for evaluation. She denies fever, cough, chills, drugs, etoh, cp, db, abd pn, pelvic pn, ext pain. - Related Data Allergies Allergy/AdvReac Type Severity Reaction Status Date / Time Penicillins Allergy Cannot Verified 04/11/21 16:59 Remember Home Meds: Home Meds Budesonide/Formoterol Fumarate [Symbicort 80-4.5 Mcg Inhaler] 1 puff IH DAILY 10/09/16 [History] Citalopram Hydrobromide [Citalopram HBr] 10 mg PO DAILY 10/09/16 [History] metFORMIN [Glucophage] 1,000 mg PO BID 10/09/16 [History] Aspirin [Esther Chewable] 81 mg PO DAILY 10/21/16 [History] Labetalol HCl [Labetalol] 200 mg PO DAILY 10/21/16 [History] Loratadine/Pseudoephedrine [Loratadine-Pseudoephed 10-240] 1 each PO DAILY 10/21/16 [History] Magnesium 250 mg PO DAILY 10/21/16 [History] Multivitamin [Multivitamins] 1 tab PO DAILY 10/21/16 [History] Zinc 50 mg PO DAILY 10/21/16 [History] amLODIPine [Norvasc] 5 mg PO DAILY 10/21/16 [History] Insulin Aspart [Insulin Aspart Flexpen] 04/09/21 [History] Insulin Glargine,Hum.Rec.Anlog [Lantus Solostar] 55 unit SQ BEDTIME 04/09/21 [History] Past Medical History HEENT History: Reports: Allergic Rhinitis Cardiovascular History: Reports: Hypertension Respiratory History: Reports: Asthma Genitourinary History: Reports: None [employer] History: Reports: None Musculoskeletal History: Reports: None Neurological History: Reports: None Psychiatric History: Reports: Depression Endocrine/Metabolic History: Reports: Diabetes, Type II, Obesity/BMI 30+ Hematologic History: Reports: None Immunologic History: Reports: None Oncologic (Cancer) History: Reports: None Dermatologic History: Reports: None - Infectious Disease History Infectious Disease History: Reports: None - Past Surgical History Head Surgeries/Procedures: Reports: None GI Surgical History: Reports: Cholecystectomy, Other (See Below) Other GI Surgeries/Procedures: liver biopsy Social & Family History - Family History Family Medical History: No Pertinent Family History - Tobacco Use Tobacco Use Status *Q: Never Tobacco User - Caffeine Use Caffeine Use: Reports: Soda - Recreational Drug Use Recreational Drug Use: No ED ROS GENERAL - Review of Systems Review Of Systems: Comprehensive ROS is negative, except as noted in HPI. ED EXAM, GENERAL - Physical Exam Exam: See Below Exam Limited By: No Limitations General Appearance: Alert, No Apparent Distress Eye Exam: Bilateral Eye: PERRL (with conjugate gaze) Ears: Normal External Exam, Normal Canal, Hearing Grossly Normal, Normal TMs Nose: Normal Inspection, Normal Mucosa, No Blood Throat/Mouth: Normal Lips, Normal Teeth, Normal Gums, Normal Voice, No Airway Compromise, Other (Tongue dry and furrowed) Head: Atraumatic, Normocephalic Neck: Normal Inspection, Supple, Non-Tender, Full Range of Motion Respiratory/Chest: No Respiratory Distress, Lungs Clear, Normal Breath Sounds, No Accessory Muscle Use, Chest Non-Tender Cardiovascular: Normal Peripheral Pulses, Regular Rate, Rhythm, No Edema, No Gallop, No JVD, No Murmur, No Rub GI/Abdominal: Soft, Non-Tender (Female) Exam: Deferred Rectal (Female) Exam: Deferred Back Exam: Normal Inspection, Full Range of Motion Extremities: Normal Inspection, Normal Range of Motion, Non-Tender, Normal Capillary Refill, No Pedal Edema Neurological: Alert, Oriented, CN II-XII Intact, Normal Cognition, Normal Gait, Normal Reflexes, No Motor/Sensory Deficits Psychiatric: Normal Affect, Normal Mood Skin Exam: Warm, Dry, Intact, Normal Color, No Rash Course - Vital Signs Last Recorded V/S: Last Vital Signs Temp 98.9 F 04/11/21 19:33 Pulse 78 04/11/21 19:33 Resp 18 04/11/21 19:33 BP 161/94 H 04/11/21 19:33 Pulse Ox 96 04/11/21 19:33 - Orders/Labs/Meds Orders: Active Orders 24 hr Category Date Time Status Blood Glucose Check, Bedside [] ONETIME Care 04/11/21 17:04 Active Peripheral IV Care [RC] . DIRECTED Care 04/11/21 16:59 Active Dextrose 50% in Water Med 04/11/21 18:18 Active 50 ml IVPUSH Q15M PRN Glucagon,Human Recombinant [GlucaGen] Med 04/11/21 18:18 Active 1 mg IM Q15M PRN Sodium Chloride 0.9% [Saline Flush] Med 04/11/21 16:59 Active 10 ml FLUSH ASDIRECTED PRN Peripheral IV Insertion Adult [OM.PC] Routine Oth 04/11/21 16:58 Ordered Medication Orders Dextrose/Water (50% Dextrose In Water 50 Ml Syringe) 50 ml IVPUSH Q15M PRN PRN Reason: Hypoglycemia Glucagon (Glucagon,Human Recombinant 1 Mg Vial) 1 mg IM Q15M PRN PRN Reason: Hypoglycemia Sodium Chloride (Sodium Chloride 0.9% 10 Ml Syringe) 10 ml FLUSH ASDIRECTED PRN PRN Reason: Keep Vein Open Last Admin: 04/11/21 17:31 Dose: 10 ml Documented by: PJ Labs: Laboratory Tests 04/11/21 04/11/21 04/11/21 Range/Units 16:57 17:08 17:08 WBC 14.8 H (5.0-10.0) 10^3/uL RBC 4.69 (4.2-5.4) 10^6/uL Hgb 12.7 (12.0-16.0) g/dL Hct 39.1 (37.0-47.0) % MCV 83.4 (80-100) fL MCH 27.1 (27.0-34.0) pg MCHC 32.5 L (33.0-35.0) g/dL Plt Count 252 (150-450) 10^3/uL Neut % (Auto) 79.0 H (42.2-75.2) % Lymph % (Auto) 17.3 L (20.5-50.1) % [place] % (Auto) 3.2 (2-8) % Eos % (Auto) 0.2 L (1.0-3.0) % Baso % (Auto) 0.3 (0.0-1.0) % Sodium 129 L (136-145) mmol/L Potassium 4.0 (3.5-5.1) mmol/L Chloride 91 L (98-107) mmol/L Carbon Dioxide 25 (21-32) mmol/L Anion Gap 17.0 H (7-13) mEq/L BUN 27 H (7-18) mg/dL Creatinine 1.32 H (0.55-1.02) mg/dL Est Cr Clr Drug Dosing 39.63 mL/min Estimated GFR (MDRD) 41 BUN/Creatinine Ratio 20.5 (No establ ref range) Glucose 703 H* (70-99) mg/dL POC Glucose > 600 H* (70-99) mg/dL Lactic Acid (0.4-2.0) mmol/L Calcium 8.3 L (8.5-10.1) mg/dL Phosphorus 1.8 L (2.6-4.7) mg/dL Magnesium 1.7 L (1.8-2.4) mg/dL Total Bilirubin 0.5 (0.2-1.0) mg/dL AST 41 H (15-37) U/L ALT 77 H (14-59) U/L Alkaline Phosphatase 258 H (46-116) U/L Total Protein 6.7 (6.4-8.2) g/dL Albumin 3.0 L (3.4-5.0) g/dL Globulin 3.7 Albumin/Globulin Ratio 0.81 Urine Color (YELLOW) Urine Appearance (CLEAR) Urine pH (5.0-9.0) Ur Specific Minto (1.005-1.030) Urine Protein (NEGATIVE) Urine Glucose (UA) (NEGATIVE) Urine Ketones (NEGATIVE) Urine Occult Blood (NEGATIVE) Urine Nitrite (NEGATIVE) Urine Bilirubin (NEGATIVE) Urine Urobilinogen (0.2-1.0) mg/dL Ur Leukocyte Esterase (NEGATIVE) 04/11/21 04/11/21 04/11/21 Range/Units 17:08 17:15 20:25 WBC (5.0-10.0) 10^3/uL RBC (4.2-5.4) 10^6/uL Hgb (12.0-16.0) g/dL Hct (37.0-47.0) % MCV (80-100) fL MCH (27.0-34.0) pg MCHC (33.0-35.0) g/dL Plt Count (150-450) 10^3/uL Neut % (Auto) (42.2-75.2) % Lymph % (Auto) (20.5-50.1) % [place] % (Auto) (2-8) % Eos % (Auto) (1.0-3.0) % Baso % (Auto) (0.0-1.0) % Sodium 141 D (136-145) mmol/L Potassium 3.2 L (3.5-5.1) mmol/L Chloride 105 D (98-107) mmol/L Carbon Dioxide 25 (21-32) mmol/L Anion Gap 14.2 H (7-13) mEq/L BUN 22 H (7-18) mg/dL Creatinine 0.90 (0.55-1.02) mg/dL Est Cr Clr Drug Dosing 58.12 mL/min Estimated GFR (MDRD) > 60 BUN/Creatinine Ratio 24.4 (No establ ref range) Glucose 271 H (70-99) mg/dL POC Glucose (70-99) mg/dL Lactic Acid 3.7 H* (0.4-2.0) mmol/L Calcium 7.1 L (8.5-10.1) mg/dL Phosphorus (2.6-4.7) mg/dL Magnesium (1.8-2.4) mg/dL Total Bilirubin 0.3 (0.2-1.0) mg/dL AST 31 (15-37) U/L ALT 58 (14-59) U/L Alkaline Phosphatase 159 H (46-116) U/L Total Protein 4.6 L (6.4-8.2) g/dL Albumin 2.2 L (3.4-5.0) g/dL Globulin 2.4 Albumin/Globulin Ratio 0.92 Urine Color Yellow (YELLOW) Urine Appearance Clear (CLEAR) Urine pH 5.5 (5.0-9.0) Ur Specific Minto <= 1.005 (1.005-1.030) Urine Protein Negative (NEGATIVE) Urine Glucose (UA) >=1000 H (NEGATIVE) Urine Ketones Negative (NEGATIVE) Urine Occult Blood Negative (NEGATIVE) Urine Nitrite Negative (NEGATIVE) Urine Bilirubin Negative (NEGATIVE) Urine Urobilinogen 0.2 (0.2-1.0) mg/dL Ur Leukocyte Esterase Negative (NEGATIVE) 04/11/21 Range/Units 20:25 WBC (5.0-10.0) 10^3/uL RBC (4.2-5.4) 10^6/uL Hgb (12.0-16.0) g/dL Hct (37.0-47.0) % MCV (80-100) fL MCH (27.0-34.0) pg MCHC (33.0-35.0) g/dL Plt Count (150-450) 10^3/uL Neut % (Auto) (42.2-75.2) % Lymph % (Auto) (20.5-50.1) % [place] % (Auto) (2-8) % Eos % (Auto) (1.0-3.0) % Baso % (Auto) (0.0-1.0) % Sodium (136-145) mmol/L Potassium (3.5-5.1) mmol/L Chloride (98-107) mmol/L Carbon Dioxide (21-32) mmol/L Anion Gap (7-13) mEq/L BUN (7-18) mg/dL Creatinine (0.55-1.02) mg/dL Est Cr Clr Drug Dosing mL/min Estimated GFR (MDRD) BUN/Creatinine Ratio (No establ ref range) Glucose (70-99) mg/dL POC Glucose (70-99) mg/dL Lactic Acid 3.1 H* (0.4-2.0) mmol/L Calcium (8.5-10.1) mg/dL Phosphorus (2.6-4.7) mg/dL Magnesium (1.8-2.4) mg/dL Total Bilirubin (0.2-1.0) mg/dL AST (15-37) U/L ALT (14-59) U/L Alkaline Phosphatase (46-116) U/L Total Protein (6.4-8.2) g/dL Albumin (3.4-5.0) g/dL Globulin Albumin/Globulin Ratio Urine Color (YELLOW) Urine Appearance (CLEAR) Urine pH (5.0-9.0) Ur Specific Minto (1.005-1.030) Urine Protein (NEGATIVE) Urine Glucose (UA) (NEGATIVE) Urine Ketones (NEGATIVE) Urine Occult Blood (NEGATIVE) Urine Nitrite (NEGATIVE) Urine Bilirubin (NEGATIVE) Urine Urobilinogen (0.2-1.0) mg/dL Ur Leukocyte Esterase (NEGATIVE) Meds: Medications Generic Name Dose Route Start Last Admin Trade Name Rafiq PRN Reason Stop Dose Admin Dextrose/Water 50 ml 04/11/21 18:18 50% Dextrose In Water 50 Ml Syringe IVPUSH Q15M PRN Hypoglycemia Glucagon 1 mg 04/11/21 18:18 Glucagon,Human Recombinant 1 Mg Vial IM Q15M PRN Hypoglycemia Sodium Chloride 10 ml 04/11/21 16:59 04/11/21 17:31 Sodium Chloride 0.9% 10 Ml Syringe FLUSH 10 ml ASDIRECTED PRN Administration Keep Vein Open Discontinued Medications Generic Name Dose Route Start Last Admin Trade Name Jarvis PRN Reason Stop Dose Admin Sodium Chloride 1,000 mls @ 999 mls/hr 04/11/21 17:35 04/11/21 17:36 Normal Saline IV 04/11/21 18:35 999 mls/hr .BOLUS ONE Administration Sodium Chloride 1,000 mls @ 999 mls/hr 04/11/21 18:23 04/11/21 18:25 Normal Saline IV 04/11/21 19:23 999 mls/hr .BOLUS ONE Administration Insulin Human Regular 5 unit 04/11/21 18:18 04/11/21 18:25 Insulin Regular, Human 100 Units/Ml 3 Ml Vial IV 04/11/21 18:19 5 units ONETIME ONE Administration - Re-Assessments/Exams Free Text/Narrative Re-Assessment/Exam: 04/11/21 21:15 The pt reports her DrRyan in [place] had some concern for glaucoma and instructed her to go to her eye doctor. The pt has not been able to get into the eye clinic this week and has been increasingly concerned over her blurry vision. Visual field acuity is normal today, normal EOM, normal accommodation. IOP is 21 in the L eye and 20 in the R eye. Departure - Departure Time of Disposition: 21:21 (Dr. Rios) Disposition: Admitted As Inpatient 67 Condition: Fair Clinical Impression: Hyperglycemia, Hypophosphatemia, Lactic acid acidosis - Discharge Information *PRESCRIPTION DRUG MONITORING PROGRAM REVIEWED*: Not Applicable *COPY OF PRESCRIPTION DRUG MONITORING REPORT IN PATIENT EVIN: Not Applicable Sepsis Event Note (ED) - Evaluation Sepsis Screening Result: No Definite Risk - Focused Exam Vital Signs: Vital Signs Temp Pulse Resp BP Pulse Ox 04/11/21 19:33 98.9 F 78 18 161/94 H 96 04/11/21 17:00 97.3 F 98 18 143/106 H 95 - My Orders Last 24 Hours: My Active Orders 04/11/21 16:58 Peripheral IV Insertion Adult [OM.PC] Routine 04/11/21 16:59 Peripheral IV Care [RC] . DIRECTED Sodium Chloride 0.9% [Saline Flush] 10 ml FLUSH ASDIRECTED PRN 04/11/21 17:04 Blood Glucose Check, Bedside [RC] ONETIME 04/11/21 18:18 Dextrose 50% in Water 50 ml IVPUSH Q15M PRN Glucagon,Human Recombinant [GlucaGen] 1 mg IM Q15M PRN - Assessment/Plan Last 24 Hours: My Active Orders 04/11/21 16:58 Peripheral IV Insertion Adult [OM.PC] Routine 04/11/21 16:59 Peripheral IV Care [RC] . DIRECTED Sodium Chloride 0.9% [Saline Flush] 10 ml FLUSH ASDIRECTED PRN 04/11/21 17:04 Blood Glucose Check, Bedside [RC] ONETIME 04/11/21 18:18 Dextrose 50% in Water 50 ml IVPUSH Q15M PRN Glucagon,Human Recombinant [GlucaGen] 1 mg IM Q15M PRN
[2021-04-11] MEDS ORDERED: Sodium Chloride 0.9% 1,000 ML IV ONE ×2 (17:35→18:23)
[2021-04-11] MEDS ORDERED: Glucagon,Human Recombinant 1 MG Vial IM PRN ×2 (18:18→21:41)
[2021-04-11] MEDS ORDERED: Insulin Regular, Human 100 Units/ML 3 ML Vial IV ONE (18:18)
[2021-04-11] MEDS ORDERED: 50% Dextrose in Water 50 ML Syringe IVPUSH PRN ×2 (18:18→21:41)
[2021-04-11] MEDS ORDERED: Sodium Chloride 0.9% 1,000 ML IV SCH ×2 (20:45→21:30)
[2021-04-11 20:58] LABS: ANION GAP 14.2 mEq/L (7-13); CHLORIDE,CL 105 mmol/L (98-107); SODIUM,NA 141 mmol/L (136-145)
[2021-04-11] MEDS ORDERED: Sodium Chloride 0.9% 1,000 ML IV STA ×2 (21:36)
[2021-04-11] MEDS ORDERED: Ondansetron 4 MG/2 ML SDV IVPUSH PRN (21:39)
[2021-04-11] MEDS ORDERED: Acetaminophen 325 MG Tab PO PRN (21:39)
[2021-04-11] MEDS ORDERED: Phosphorus #1 250 MG Tab PO ONE (21:42)
[2021-04-11] MEDS ORDERED: Magnesium Sulfate/Water 2 GM in Premix Bag 1 BAG IV ONE (21:45)
--- NOTE | 2021-04-11 21:52 | PCM.HP ---
H&P History of Present Illness - General Date of Service: 04/11/21 Admit Problem/Dx: Admission Diagnosis/Problem Admission Diagnosis/Problem Lactic acidosis Source of Information: Patient, EMS History Limitations: Reports: No Limitations - History of Present Illness Initial Comments - Free Text/Narative: 60-year-old female with a past medical history of type 2 diabetes on insulin, recent diagnosis of temporal arteritis on high-dose p.o. prednisone, hypertension who presents with recurrent hyperglycemia. Patient was recently admitted on 04/09/21 for identical concerns. From prior note " Patient states that approximately 2 weeks ago she was diagnosed with what her primary believes is temporal arteritis. Patient states that she had been having severe jaw pain, left-sided temporal pain. States that she had some labs which are similar elevated ESR and CRP and was started on significant prednisone 60 mg daily. She states that she felt better but over the last 3 to 4 days she has had increased bilateral blurry vision, generalized fatigue, increased thirst, increased urination. In the emergency department she was hemodynamically stable laboratory values included a sodium 123 with corrected to 134, potassium 4.3, creatinine 1.56 I am increased her baseline, WBC 15.9, hemoglobin 13.7, platelet count 388, AST 38, ALT 77, lactate 3.2. Upon discussion with patient she reiterates the above story. Patient states that the vision changes in general malaise she otherwise feels well. Patient denies any chest pains or pressures, abdominal pain, nausea or vomiting. Patient states that she has been eating today but her oral intake has been otherwise well. She states that she uses 54 units of Lantus at night and this was increased recently with her steroids she also just restarted yesterday on aspart 5 3 times daily with meals. States that her glucose monitor Reading "H" which she has not seen before she was confused that is why took her longer to come in." "Patient's blood sugar significantly improved with 10 units of normal insulin. She was given her usual 55 units of long-acting insulin at night and a medium sliding scale insulin was implemented. Patient's blood sugar significantly improved. Patient also had an acute kidney injury and was dehydrated and was given significant volume resuscitation. Repeat labs the following morning showed improvement with normalization of her anion gap, creatinine to baseline, blood glucose levels in the 160s. Prolonged discussion was had with patient about utilizing her home long-acting insulin at the current dose and the changing to a sliding scale insulin for her short acting which was provided to her. Patient states that she has insulin supplies, meters into strips. Patient to follow-up with her PCP after rheumatology visit." Patient presents today and states that she had gone to her rheumatology appointment and they had done some repeat labs following day and they stated that her blood sugar was significantly elevated and she should go to the emergency department for evaluation. Patient tells me that since her discharge on Wednesday she has only had high readings on her glucose monitor. Patient told emergency services and myself that she was taking 12 units 3 times daily as listed on the medium sliding scale insulin over the last day. I had prolonged discussion with patient as she walked me through how she takes her insulin. She states that recently due to what she describes as some discomfort at her injection sites it appears that when she is injecting she is turning her dial on her insulin pens to 0. Patient again complains of bilateral blurry vision that corresponds to her elevated glucose levels. Is complaining of also significant polyuria over the last several days. Patient arrived to the emergency department she was hemodynamically stable. Satting well on room air. Laboratory values showed a WBC of 14.8, hemoglobin 12.7, plate count 252. Laboratory values needle identical to prior hospitalization. Other laboratory testing included a sodium 129, potassium of 4.0, creatinine 1.32. Glucose was 703. Lactic acid 3.7. Patient was given 5 units IV insulin and 1 L fluid bolus. After approximately 3 hours labs were repeated and showed a sodium improved to 141, potassium 3.2, creatinine improved to 0.90. Glucose had improved dramatically to 271. Repeat lactate 3.1. UA showed greater than 1000 glucose but was otherwise unremarkable. Given her elevated lactic acidosis and concerns of recent hospitalization patient was readmitted for further evaluation. Review of systems is negative except those listed above. - Related Data Allergies/Adverse Reactions: Allergies Allergy/AdvReac Type Severity Reaction Status Date / Time Penicillins Allergy Cannot Verified 04/11/21 16:59 Remember Home Medications: Home Meds Budesonide/Formoterol Fumarate [Symbicort 80-4.5 Mcg Inhaler] 1 puff IH DAILY 10/09/16 [History] Citalopram Hydrobromide [Citalopram HBr] 10 mg PO DAILY 10/09/16 [History] metFORMIN [Glucophage] 1,000 mg PO BID 10/09/16 [History] Aspirin [Esther Chewable] 81 mg PO DAILY 10/21/16 [History] Labetalol HCl [Labetalol] 200 mg PO DAILY 10/21/16 [History] Loratadine/Pseudoephedrine [Loratadine-Pseudoephed 10-240] 1 each PO DAILY 10/21/16 [History] Magnesium 250 mg PO DAILY 10/21/16 [History] Multivitamin [Multivitamins] 1 tab PO DAILY 10/21/16 [History] Zinc 50 mg PO DAILY 10/21/16 [History] amLODIPine [Norvasc] 5 mg PO DAILY 10/21/16 [History] Insulin Aspart [Insulin Aspart Flexpen] 04/09/21 [History] Insulin Glargine,Hum.Rec.Anlog [Lantus Solostar] 55 unit SQ BEDTIME 04/09/21 [History] Liraglutide [Victoza 3-Stanley] 18 mg .XX 04/11/21 [History] Rosuvastatin [Crestor] 5 mg PO DAILY 04/11/21 [History] predniSONE [Prednisone] 60 mg PO 04/11/21 [History] Past Medical History HEENT History: Reports: Allergic Rhinitis Cardiovascular History: Reports: Hypertension Respiratory History: Reports: Asthma Genitourinary History: Reports: None [employer] History: Reports: None Musculoskeletal History: Reports: None Neurological History: Reports: None Psychiatric History: Reports: Depression Endocrine/Metabolic History: Reports: Diabetes, Type II, Obesity/BMI 30+ Hematologic History: Reports: None Immunologic History: Reports: None Oncologic (Cancer) History: Reports: None Dermatologic History: Reports: None - Infectious Disease History Infectious Disease History: Reports: None - Past Surgical History Head Surgeries/Procedures: Reports: None GI Surgical History: Reports: Cholecystectomy, Other (See Below) Other GI Surgeries/Procedures: liver biopsy Social & Family History - Family History Family Medical History: No Pertinent Family History - Tobacco Use Tobacco Use Status *Q: Never Tobacco User - Caffeine Use Caffeine Use: Reports: Soda - Recreational Drug Use Recreational Drug Use: No H&P Review of Systems - Review of Systems: Review Of Systems: Comprehensive ROS is negative, except as noted in HPI. Exam - Exam Exam: See Below - Vital Signs Vital Signs: Last Vital Signs Temp 98.9 F 04/11/21 19:33 Pulse 78 04/11/21 19:33 Resp 18 04/11/21 19:33 BP 161/94 H 04/11/21 19:33 Pulse Ox 96 04/11/21 19:33 Weight: 157 lb 5 oz - Exam General: Alert, Oriented HEENT: Other (blurrly vision bilaterally ) Neck: Supple Lungs: Clear to Auscultation Cardiovascular: Regular Rate, Regular Rhythm GI/Abdominal Exam: Normal Bowel Sounds, Soft Extremities: Normal Inspection Peripheral Pulses: 2+: Radial (L), Radial (R) Skin: Warm, Dry Neurological: Cranial Nerves Intact Neuro Extensive - Mental Status: Alert Neuro Extensive - Motor, Sensory, Reflexes: CN II-XII Intact Psychiatric: Alert - Patient Data Lab Results Last 24 hrs: Laboratory Results - last 24 hr 04/11/21 04/11/21 04/11/21 Range/Units 16:57 17:08 17:08 WBC 14.8 H (5.0-10.0) 10^3/uL RBC 4.69 (4.2-5.4) 10^6/uL Hgb 12.7 (12.0-16.0) g/dL Hct 39.1 (37.0-47.0) % MCV 83.4 (80-100) fL MCH 27.1 (27.0-34.0) pg MCHC 32.5 L (33.0-35.0) g/dL Plt Count 252 (150-450) 10^3/uL Neut % (Auto) 79.0 H (42.2-75.2) % Lymph % (Auto) 17.3 L (20.5-50.1) % [place] % (Auto) 3.2 (2-8) % Eos % (Auto) 0.2 L (1.0-3.0) % Baso % (Auto) 0.3 (0.0-1.0) % Sodium 129 L (136-145) mmol/L Potassium 4.0 (3.5-5.1) mmol/L Chloride 91 L (98-107) mmol/L Carbon Dioxide 25 (21-32) mmol/L Anion Gap 17.0 H (7-13) mEq/L BUN 27 H (7-18) mg/dL Creatinine 1.32 H (0.55-1.02) mg/dL Est Cr Clr Drug Dosing 39.63 mL/min Estimated GFR (MDRD) 41 BUN/Creatinine Ratio 20.5 (No establ ref range) Glucose 703 H* (70-99) mg/dL POC Glucose > 600 H* (70-99) mg/dL Lactic Acid (0.4-2.0) mmol/L Calcium 8.3 L (8.5-10.1) mg/dL Phosphorus 1.8 L (2.6-4.7) mg/dL Magnesium 1.7 L (1.8-2.4) mg/dL Total Bilirubin 0.5 (0.2-1.0) mg/dL AST 41 H (15-37) U/L ALT 77 H (14-59) U/L Alkaline Phosphatase 258 H (46-116) U/L Total Protein 6.7 (6.4-8.2) g/dL Albumin 3.0 L (3.4-5.0) g/dL Globulin 3.7 Albumin/Globulin Ratio 0.81 Urine Color (YELLOW) Urine Appearance (CLEAR) Urine pH (5.0-9.0) Ur Specific [place] (1.005-1.030) Urine Protein (NEGATIVE) Urine Glucose (UA) (NEGATIVE) Urine Ketones (NEGATIVE) Urine Occult Blood (NEGATIVE) Urine Nitrite (NEGATIVE) Urine Bilirubin (NEGATIVE) Urine Urobilinogen (0.2-1.0) mg/dL Ur Leukocyte Esterase (NEGATIVE) 04/11/21 04/11/21 04/11/21 Range/Units 17:08 17:15 20:25 WBC (5.0-10.0) 10^3/uL RBC (4.2-5.4) 10^6/uL Hgb (12.0-16.0) g/dL Hct (37.0-47.0) % MCV (80-100) fL MCH (27.0-34.0) pg MCHC (33.0-35.0) g/dL Plt Count (150-450) 10^3/uL Neut % (Auto) (42.2-75.2) % Lymph % (Auto) (20.5-50.1) % [place] % (Auto) (2-8) % Eos % (Auto) (1.0-3.0) % Baso % (Auto) (0.0-1.0) % Sodium 141 D (136-145) mmol/L Potassium 3.2 L (3.5-5.1) mmol/L Chloride 105 D (98-107) mmol/L Carbon Dioxide 25 (21-32) mmol/L Anion Gap 14.2 H (7-13) mEq/L BUN 22 H (7-18) mg/dL Creatinine 0.90 (0.55-1.02) mg/dL Est Cr Clr Drug Dosing 58.12 mL/min Estimated GFR (MDRD) > 60 BUN/Creatinine Ratio 24.4 (No establ ref range) Glucose 271 H (70-99) mg/dL POC Glucose (70-99) mg/dL Lactic Acid 3.7 H* (0.4-2.0) mmol/L Calcium 7.1 L (8.5-10.1) mg/dL Phosphorus (2.6-4.7) mg/dL Magnesium (1.8-2.4) mg/dL Total Bilirubin 0.3 (0.2-1.0) mg/dL AST 31 (15-37) U/L ALT 58 (14-59) U/L Alkaline Phosphatase 159 H (46-116) U/L Total Protein 4.6 L (6.4-8.2) g/dL Albumin 2.2 L (3.4-5.0) g/dL Globulin 2.4 Albumin/Globulin Ratio 0.92 Urine Color Yellow (YELLOW) Urine Appearance Clear (CLEAR) Urine pH 5.5 (5.0-9.0) Ur Specific [place] <= 1.005 (1.005-1.030) Urine Protein Negative (NEGATIVE) Urine Glucose (UA) >=1000 H (NEGATIVE) Urine Ketones Negative (NEGATIVE) Urine Occult Blood Negative (NEGATIVE) Urine Nitrite Negative (NEGATIVE) Urine Bilirubin Negative (NEGATIVE) Urine Urobilinogen 0.2 (0.2-1.0) mg/dL Ur Leukocyte Esterase Negative (NEGATIVE) 04/11/ Range/Units 20:25 WBC (5.0-10.0) 10^3/uL RBC (4.2-5.4) 10^6/uL Hgb (12.0-16.0) g/dL Hct (37.0-47.0) % MCV (80-100) fL MCH (27.0-34.0) pg MCHC (33.0-35.0) g/dL Plt Count (150-450) 10^3/uL Neut % (Auto) (42.2-75.2) % Lymph % (Auto) (20.5-50.1) % [facility] % (Auto) (2-8) % Eos % (Auto) (1.0-3.0) % Baso % (Auto) (0.0-1.0) % Sodium (136-145) mmol/L Potassium (3.5-5.1) mmol/L Chloride (98-107) mmol/L Carbon Dioxide (21-32) mmol/L Anion Gap (7-13) mEq/L BUN (7-18) mg/dL Creatinine (0.55-1.02) mg/dL Est Cr Clr Drug Dosing mL/min Estimated GFR (MDRD) BUN/Creatinine Ratio (No establ ref range) Glucose (70-99) mg/dL POC Glucose (70-99) mg/dL Lactic Acid 3.1 H* (0.4-2.0) mmol/L Calcium (8.5-10.1) mg/dL Phosphorus (2.6-4.7) mg/dL Magnesium (1.8-2.4) mg/dL Total Bilirubin (0.2-1.0) mg/dL AST (15-37) U/L ALT (14-59) U/L Alkaline Phosphatase (46-116) U/L Total Protein (6.4-8.2) g/dL Albumin (3.4-5.0) g/dL Globulin Albumin/Globulin Ratio Urine Color (YELLOW) Urine Appearance (CLEAR) Urine pH (5.0-9.0) Ur Specific [place] (1.005-1.030) Urine Protein (NEGATIVE) Urine Glucose (UA) (NEGATIVE) Urine Ketones (NEGATIVE) Urine Occult Blood (NEGATIVE) Urine Nitrite (NEGATIVE) Urine Bilirubin (NEGATIVE) Urine Urobilinogen (0.2-1.0) mg/dL Ur Leukocyte Esterase (NEGATIVE) Result Diagrams: 04/11/21 17:08 04/11/21 20:25 - Problem List (1) Anxiety SNOMED Code(s): 05914614 ICD Code: F41.9 - ANXIETY DISORDER, UNSPECIFIED Status: Acute Current Visit: No (2) DM2 (diabetes mellitus, type 2) SNOMED Code(s): 88741753 ICD Code: E11.9 - TYPE 2 DIABETES MELLITUS WITHOUT COMPLICATIONS Status: Acute Current Visit: No (3) HTN (hypertension) SNOMED Code(s): 85034206 ICD Code: I10 - ESSENTIAL (PRIMARY) HYPERTENSION Status: Acute Current Visit: No (4) Hyperglycemia SNOMED Code(s): 70863889 ICD Code: R73.9 - HYPERGLYCEMIA, UNSPECIFIED Status: Acute Current Visit: No (5) Lactic acid acidosis SNOMED Code(s): 55209697 ICD Code: E87.2 - ACIDOSIS Status: Acute Current Visit: No (6) Steroid-induced hyperglycemia SNOMED Code(s): 210326330 ICD Code: R73.9 - HYPERGLYCEMIA, UNSPECIFIED; T38.0X5A - ADVERSE EFFECT OF GLUCOCORT/SYNTH ANALOG, INIT Status: Acute Current Visit: No (7) Temporal arteritis SNOMED Code(s): 829170573 ICD Code: M31.6 - OTHER GIANT CELL ARTERITIS Status: Acute Current Visit: No Problem List Initiated/Reviewed/Updated: Yes Orders Last 24hrs: Active Orders 24 hr Category Date Time Status Admission Diagnosis [ADT] Stat ADT 04/11/21 21:22 Ordered Admission Status [Patient Status] [ADT] Routine ADT 04/11/21 21:22 Active Blood Glucose Check, Bedside [RC] ONETIME Care 04/11/21 17:04 Active Blood Glucose Check, Bedside [RC] WITHMEALSANDBED Care 04/11/21 21:41 Active Oxygen Therapy [RC] PRN Care 04/11/21 21:39 Active Peripheral IV Care [RC] . DIRECTED Care 04/11/21 16:59 Active VTE/DVT Education [RC] 08,20 Care 04/11/21 21:39 Active Vital Signs [RC] 00,04,08,12,16,20 Care 04/11/21 21:39 Active Consistent Carbohydrate Diet [DIET] Diet 04/11/21 Dinner Active BMP [BASIC METABOLIC PANEL,BMP] [CHEM] AM Lab 04/12/21 05:11 Ordered LACTATE SEPSIS W/ REFLEX [CHEM] DAILY Lab 04/12/21 05:30 Ordered Acetaminophen [TylenoL] Med 04/11/21 21:39 Active 650 mg PO Q4H PRN Dextrose 50% in Water Med 04/11/21 21:41 Active 50 ml IVPUSH Q15M PRN Enoxaparin [Lovenox] Med 04/12/21 09:00 Active 40 mg SUBCUT DAILY Glucagon,Human Recombinant [GlucaGen] Med 04/11/21 21:41 Active 1 mg IM Q15M PRN Insulin Lispro [HumaLOG] Med 04/12/21 08:00 Active See Protocol SUBCUT WITHMEALSANDBED Magnesium Sulfate/Water [Magnesium Sulfate in Water 2 Med 04/11/21 21:45 Ordered GM/50 ML] 2 gm Premix Bag 1 bag IV ONETIME Ondansetron [Zofran] Med 04/11/21 21:39 Active 4 mg IVPUSH Q6H PRN Sodium Chloride 0.9% [Normal Saline] 1,000 ml Med 04/11/21 21:36 Active IV NOW Sodium Chloride 0.9% [Saline Flush] Med 04/11/21 16:59 Active 10 ml FLUSH ASDIRECTED PRN Sodium Chloride 0.9% with KCl [Normal Saline with 40 Med 04/11/21 21:45 Active mEq KCl] 1,000 ml IV ASDIRECTED Peripheral IV Insertion Adult [OM.PC] Routine Oth 04/11/21 16:58 Ordered Resuscitation Status Routine Resus Stat 04/11/21 21:39 Ordered Medication Orders Acetaminophen (Acetaminophen 325 Mg Tab) 650 mg PO Q4H PRN PRN Reason: Pain (Mild 1-3)/fever Dextrose/Water (50% Dextrose In Water 50 Ml Syringe) 50 ml IVPUSH Q15M PRN PRN Reason: Hypoglycemia Enoxaparin Sodium (Enoxaparin 40 Mg/0.4 Ml Syringe) 40 mg SUBCUT DAILY WILIAM Glucagon (Glucagon,Human Recombinant 1 Mg Vial) 1 mg IM Q15M PRN PRN Reason: Hypoglycemia Sodium Chloride (Normal Saline) 1,000 mls @ 125 mls/hr IV NOW STA Stop: 04/12/21 05:34 Potassium Chloride/Sodium Chloride (Normal Saline With 40 Meq Kcl) 1,000 mls @ 150 mls/hr IV ASDIRECTED WILIAM Insulin Human Lispro (Insulin Lispro 100 Units/Ml 3 Ml Vial) 0 unit SUBCUT WITHMEALSANDBED WILIAM; Protocol Ondansetron HCl (Ondansetron 4 Mg/2 Ml Sdv) 4 mg IVPUSH Q6H PRN PRN Reason: Nausea/Vomiting Sodium Chloride (Sodium Chloride 0.9% 10 Ml Syringe) 10 ml FLUSH ASDIRECTED PRN PRN Reason: Keep Vein Open Last Admin: 04/11/21 17:31 Dose: 10 ml Documented by: PJ Assessment/Plan Comment:: Patient is a 60-year-old female with a history of type 2 diabetes on insulin therapy who presents with steroid-induced hyperglycemia due to recent p.o. prednisone for temporal arteritis. Patient was recently hospitalized with identical symptoms approximately 2 days prior. # Hyperglycemia, HHS, lactic acidosis -Glucose significantly elevated at 703, decreased to 271 after 5 units of IV insulin. Overall picture presentation is nearly identical. Patient discusses with me that she was taking her 55 units of glargine and was utilizing her sliding scale insulin. However patient is unable to name some of her medications and given the fact that we have now to document episodes that patient had dramatic improvement with either minimal subcutaneous or IV insulin I question medication compliance. After prolonged discussion with patient I am worried that she is utilizing her insulin pens incorrectly as she is telling me that she will dilate to 0 when she is injecting. Hyperglycemia secondary to steroid use and ? accidental medical non-compliance -Home Lantus 55 units, will do medium dose sliding scale insulin - will have patient bring in her insulin supplies and have her demonstrate proper injection technique - will discuss with family members at home and patient will need very close follow up with PCP -carb controlled diet, significant fluid resuscitation with electrolyte repletion and recheck tomorrow AM -Repeat glucose check then TID and before HS -Elevated lactate at 3.7-3.2 - fluid resuscitation and recheck in a.m. -will hold metformin and victoza # EFFIE - already resolved with repeat labs prior to admission # Temporal arteritis -Continue p.o. prednisone 60 mg p.o. daily - patient was started on PPI and appears to be atovaquone for P ENMANUEL prophylaxis although patient is unsure as this was just started on Wednesday -Patient had rheumatology follow-up and they repeated labs and are discussing possible biopsies # Chronic medical conditions Hypertension - continue labetalol 200 mg p.o. daily, continue amlodipine Anxiety/depression -continue citalopram 10 mg daily Fluid status 150 mL an hour NS with KCl Electrolytes-hypokalemia, hypomagnesemia, hypophosphatemia, will replete Diet- carb controlled DVT pro - lovenox
[2021-04-11] MEDS: Sodium Chloride 0.9% with KCl 1,000 ML IV SCH (22:43)
[2021-04-12] MEDS: Sodium Chloride 0.9% with KCl 1,000 ML IV SCH (05:46)
--- NOTE | 2021-04-12 06:20 | PCM.PN ---
- General Info Date of Service: 04/12/21 Admission Dx/Problem (Free Text): Admission Diagnosis/Problem Admission Diagnosis/Problem Lactic acidosis - Patient Data Vitals - Most Recent: Last Vital Signs Temp 98.4 F 04/12/21 03:51 Pulse 77 04/12/21 03:51 Resp 16 04/12/21 03:51 BP 140/82 04/12/21 03:51 Pulse Ox 98 04/12/21 03:51 Weight - Most Recent: 154 lb 9.6 oz I&O - Last 24 Hours: Intake & Output 04/11/21 04/11/21 04/12/21 14:59 22:59 06:59 Intake Total 3350 200 Output Total 600 Balance 3350 -400 Lab Results Last 24 Hours: Laboratory Results - last 24 hr 04/11/21 04/11/21 04/11/21 Range/Units 16:57 17:08 17:08 WBC 14.8 H (5.0-10.0) 10^3/uL RBC 4.69 (4.2-5.4) 10^6/uL Hgb 12.7 (12.0-16.0) g/dL Hct 39.1 (37.0-47.0) % MCV 83.4 (80-100) fL MCH 27.1 (27.0-34.0) pg MCHC 32.5 L (33.0-35.0) g/dL Plt Count 252 (150-450) 10^3/uL Neut % (Auto) 79.0 H (42.2-75.2) % Lymph % (Auto) 17.3 L (20.5-50.1) % [place] % (Auto) 3.2 (2-8) % Eos % (Auto) 0.2 L (1.0-3.0) % Baso % (Auto) 0.3 (0.0-1.0) % Sodium 129 L (136-145) mmol/L Potassium 4.0 (3.5-5.1) mmol/L Chloride 91 L (98-107) mmol/L Carbon Dioxide 25 (21-32) mmol/L Anion Gap 17.0 H (7-13) mEq/L BUN 27 H (7-18) mg/dL Creatinine 1.32 H (0.55-1.02) mg/dL Est Cr Clr Drug Dosing 39.63 mL/min Estimated GFR (MDRD) 41 BUN/Creatinine Ratio 20.5 (No establ ref range) Glucose 703 H* (70-99) mg/dL POC Glucose > 600 H* (70-99) mg/dL Lactic Acid (0.4-2.0) mmol/L Calcium 8.3 L (8.5-10.1) mg/dL Phosphorus 1.8 L (2.6-4.7) mg/dL Magnesium 1.7 L (1.8-2.4) mg/dL Total Bilirubin 0.5 (0.2-1.0) mg/dL AST 41 H (15-37) U/L ALT 77 H (14-59) U/L Alkaline Phosphatase 258 H (46-116) U/L Total Protein 6.7 (6.4-8.2) g/dL Albumin 3.0 L (3.4-5.0) g/dL Globulin 3.7 Albumin/Globulin Ratio 0.81 Urine Color (YELLOW) Urine Appearance (CLEAR) Urine pH (5.0-9.0) Ur Specific [place] (1.005-1.030) Urine Protein (NEGATIVE) Urine Glucose (UA) (NEGATIVE) Urine Ketones (NEGATIVE) Urine Occult Blood (NEGATIVE) Urine Nitrite (NEGATIVE) Urine Bilirubin (NEGATIVE) Urine Urobilinogen (0.2-1.0) mg/dL Ur Leukocyte Esterase (NEGATIVE) 04/11/21 04/11/21 04/11/21 Range/Units 17:08 17:15 20:25 WBC (5.0-10.0) 10^3/uL RBC (4.2-5.4) 10^6/uL Hgb (12.0-16.0) g/dL Hct (37.0-47.0) % MCV (80-100) fL MCH (27.0-34.0) pg MCHC (33.0-35.0) g/dL Plt Count (150-450) 10^3/uL Neut % (Auto) (42.2-75.2) % Lymph % (Auto) (20.5-50.1) % [place] % (Auto) (2-8) % Eos % (Auto) (1.0-3.0) % Baso % (Auto) (0.0-1.0) % Sodium 141 D (136-145) mmol/L Potassium 3.2 L (3.5-5.1) mmol/L Chloride 105 D (98-107) mmol/L Carbon Dioxide 25 (21-32) mmol/L Anion Gap 14.2 H (7-13) mEq/L BUN 22 H (7-18) mg/dL Creatinine 0.90 (0.55-1.02) mg/dL Est Cr Clr Drug Dosing 58.12 mL/min Estimated GFR (MDRD) > 60 BUN/Creatinine Ratio 24.4 (No establ ref range) Glucose 271 H (70-99) mg/dL POC Glucose (70-99) mg/dL Lactic Acid 3.7 H* (0.4-2.0) mmol/L Calcium 7.1 L (8.5-10.1) mg/dL Phosphorus (2.6-4.7) mg/dL Magnesium (1.8-2.4) mg/dL Total Bilirubin 0.3 (0.2-1.0) mg/dL AST 31 (15-37) U/L ALT 58 (14-59) U/L Alkaline Phosphatase 159 H (46-116) U/L Total Protein 4.6 L (6.4-8.2) g/dL Albumin 2.2 L (3.4-5.0) g/dL Globulin 2.4 Albumin/Globulin Ratio 0.92 Urine Color Yellow (YELLOW) Urine Appearance Clear (CLEAR) Urine pH 5.5 (5.0-9.0) Ur Specific [place] <= 1.005 (1.005-1.030) Urine Protein Negative (NEGATIVE) Urine Glucose (UA) >=1000 H (NEGATIVE) Urine Ketones Negative (NEGATIVE) Urine Occult Blood Negative (NEGATIVE) Urine Nitrite Negative (NEGATIVE) Urine Bilirubin Negative (NEGATIVE) Urine Urobilinogen 0.2 (0.2-1.0) mg/dL Ur Leukocyte Esterase Negative (NEGATIVE) 04/11/21 04/12/21 Range/Units 20:25 00:07 WBC (5.0-10.0) 10^3/uL RBC (4.2-5.4) 10^6/uL Hgb (12.0-16.0) g/dL Hct (37.0-47.0) % MCV (80-100) fL MCH (27.0-34.0) pg MCHC (33.0-35.0) g/dL Plt Count (150-450) 10^3/uL Neut % (Auto) (42.2-75.2) % Lymph % (Auto) (20.5-50.1) % [place] % (Auto) (2-8) % Eos % (Auto) (1.0-3.0) % Baso % (Auto) (0.0-1.0) % Sodium (136-145) mmol/L Potassium (3.5-5.1) mmol/L Chloride (98-107) mmol/L Carbon Dioxide (21-32) mmol/L Anion Gap (7-13) mEq/L BUN (7-18) mg/dL Creatinine (0.55-1.02) mg/dL Est Cr Clr Drug Dosing mL/min Estimated GFR (MDRD) BUN/Creatinine Ratio (No establ ref range) Glucose (70-99) mg/dL POC Glucose 266 H (70-99) mg/dL Lactic Acid 3.1 H* (0.4-2.0) mmol/L Calcium (8.5-10.1) mg/dL Phosphorus (2.6-4.7) mg/dL Magnesium (1.8-2.4) mg/dL Total Bilirubin (0.2-1.0) mg/dL AST (15-37) U/L ALT (14-59) U/L Alkaline Phosphatase (46-116) U/L Total Protein (6.4-8.2) g/dL Albumin (3.4-5.0) g/dL Globulin Albumin/Globulin Ratio Urine Color (YELLOW) Urine Appearance (CLEAR) Urine pH (5.0-9.0) Ur Specific [place] (1.005-1.030) Urine Protein (NEGATIVE) Urine Glucose (UA) (NEGATIVE) Urine Ketones (NEGATIVE) Urine Occult Blood (NEGATIVE) Urine Nitrite (NEGATIVE) Urine Bilirubin (NEGATIVE) Urine Urobilinogen (0.2-1.0) mg/dL Ur Leukocyte Esterase (NEGATIVE) Med Orders - Current: Current Medications Acetaminophen (Acetaminophen 325 Mg Tab) 650 mg PO Q4H PRN PRN Reason: Pain (Mild 1-3)/fever Amlodipine Besylate (Amlodipine 5 Mg Tab) 5 mg PO DAILY [facility] Aspirin (Aspirin 81 Mg Tab.Chew) 81 mg PO DAILY [facility] Citalopram Hydrobromide (Citalopram 20 Mg Tab) 10 mg PO DAILY [facility] Dextrose/Water (50% Dextrose In Water 50 Ml Syringe) 50 ml IVPUSH Q15M PRN PRN Reason: Hypoglycemia Enoxaparin Sodium (Enoxaparin 40 Mg/0.4 Ml Syringe) 40 mg SUBCUT DAILY [facility] Glucagon (Glucagon,Human Recombinant 1 Mg Vial) 1 mg IM Q15M PRN PRN Reason: Hypoglycemia Potassium Chloride/Sodium Chloride (Normal Saline With 40 Meq Kcl) 1,000 mls @ 150 mls/hr IV ASDIRECTED WILIAM Last Admin: 04/12/21 05:46 Dose: 150 mls/hr Documented by: Insulin Glargine (Insulin Glarg,Human.Rec.Analog 100 Unit/Ml) 55 unit SUBCUT BEDTIME [facility] Insulin Human Lispro (Insulin Lispro 100 Units/Ml 3 Ml Vial) 0 unit SUBCUT WITHMEALSANDBED [facility]; Protocol Labetalol HCl (Labetalol 100 Mg Tab) 200 mg PO DAILY [facility] Ondansetron HCl (Ondansetron 4 Mg/2 Ml Sdv) 4 mg IVPUSH Q6H PRN PRN Reason: Nausea/Vomiting Prednisone (Prednisone 20 Mg Tab) 60 mg PO WITHBREAKFAST [facility] Sodium Chloride (Sodium Chloride 0.9% 10 Ml Syringe) 10 ml FLUSH ASDIRECTED PRN PRN Reason: Keep Vein Open Last Admin: 04/11/21 17:31 Dose: 10 ml Documented by: Discontinued Medications Dextrose/Water (50% Dextrose In Water 50 Ml Syringe) 50 ml IVPUSH Q15M PRN PRN Reason: Hypoglycemia Glucagon (Glucagon,Human Recombinant 1 Mg Vial) 1 mg IM Q15M PRN PRN Reason: Hypoglycemia Sodium Chloride (Normal Saline) 1,000 mls @ 999 mls/hr IV .BOLUS ONE Stop: 04/11/21 18:35 Last Admin: 04/11/21 17:36 Dose: 999 mls/hr Documented by: Sodium Chloride (Normal Saline) 1,000 mls @ 999 mls/hr IV .BOLUS ONE Stop: 04/11/21 19:23 Last Admin: 04/11/21 18:25 Dose: 999 mls/hr Documented by: Sodium Chloride (Normal Saline) 1,000 mls @ 999 mls/hr IV ASDIRECTED WILIAM Sodium Chloride (Normal Saline) 1,000 mls @ 125 mls/hr IV ASDIRECTED WILIAM Sodium Chloride (Normal Saline) 1,000 mls @ 999 mls/hr IV STAT STA Stop: 04/11/21 21:45 Last Admin: 04/11/21 20:45 Dose: 999 mls/hr Documented by: Sodium Chloride (Normal Saline) 1,000 mls @ 125 mls/hr IV NOW STA Stop: 04/12/21 05:34 Magnesium Sulfate 2 gm/ Premix 50 mls @ 25 mls/hr IV ONETIME ONE Stop: 04/11/21 23:44 Last Admin: 04/11/21 22:42 Dose: 25 mls/hr Documented by: Insulin Human Regular (Insulin Regular, Human 100 Units/Ml 3 Ml Vial) 5 unit IV ONETIME ONE Stop: 04/11/21 18:19 Last Admin: 04/11/21 18:25 Dose: 5 units Documented by: Sodium Phosphate (Phosphorus #1 250 Mg Tab) 250 mg PO ONETIME ONE Stop: 04/11/21 21:43 Last Admin: 04/11/21 22:41 Dose: 250 mg Documented by: - Exam General: Alert, Oriented HEENT: Pupils Equal, Other (bilateral blurry vision) Lungs: Clear to Auscultation, Normal Respiratory Effort Cardiovascular: Regular Rate, Regular Rhythm GI/Abdominal Exam: Normal Bowel Sounds, Soft Back Exam: Normal Inspection Extremities: Normal Inspection Peripheral Pulses: 2+: Radial (L), Radial (R) Skin: Warm, Dry Neurological: No New Focal Deficit Psy/Mental Status: Alert, Anxious - Patient Data Lab Results Last 24 hrs: Laboratory Results - last 24 hr 04/11/21 04/11/21 04/11/21 Range/Units 16:57 17:08 17:08 WBC 14.8 H (5.0-10.0) 10^3/uL RBC 4.69 (4.2-5.4) 10^6/uL Hgb 12.7 (12.0-16.0) g/dL Hct 39.1 (37.0-47.0) % MCV 83.4 (80-100) fL MCH 27.1 (27.0-34.0) pg MCHC 32.5 L (33.0-35.0) g/dL Plt Count 252 (150-450) 10^3/uL Neut % (Auto) 79.0 H (42.2-75.2) % Lymph % (Auto) 17.3 L (20.5-50.1) % [place] % (Auto) 3.2 (2-8) % Eos % (Auto) 0.2 L (1.0-3.0) % Baso % (Auto) 0.3 (0.0-1.0) % Sodium 129 L (136-145) mmol/L Potassium 4.0 (3.5-5.1) mmol/L Chloride 91 L (98-107) mmol/L Carbon Dioxide 25 (21-32) mmol/L Anion Gap 17.0 H (7-13) mEq/L BUN 27 H (7-18) mg/dL Creatinine 1.32 H (0.55-1.02) mg/dL Est Cr Clr Drug Dosing 39.63 mL/min Estimated GFR (MDRD) 41 BUN/Creatinine Ratio 20.5 (No establ ref range) Glucose 703 H* (70-99) mg/dL POC Glucose > 600 H* (70-99) mg/dL Lactic Acid (0.4-2.0) mmol/L Calcium 8.3 L (8.5-10.1) mg/dL Phosphorus 1.8 L (2.6-4.7) mg/dL Magnesium 1.7 L (1.8-2.4) mg/dL Total Bilirubin 0.5 (0.2-1.0) mg/dL AST 41 H (15-37) U/L ALT 77 H (14-59) U/L Alkaline Phosphatase 258 H (46-116) U/L Total Protein 6.7 (6.4-8.2) g/dL Albumin 3.0 L (3.4-5.0) g/dL Globulin 3.7 Albumin/Globulin Ratio 0.81 Urine Color (YELLOW) Urine Appearance (CLEAR) Urine pH (5.0-9.0) Ur Specific [place] (1.005-1.030) Urine Protein (NEGATIVE) Urine Glucose (UA) (NEGATIVE) Urine Ketones (NEGATIVE) Urine Occult Blood (NEGATIVE) Urine Nitrite (NEGATIVE) Urine Bilirubin (NEGATIVE) Urine Urobilinogen (0.2-1.0) mg/dL Ur Leukocyte Esterase (NEGATIVE) 04/11/21 04/11/21 04/11/21 Range/Units 17:08 17:15 20:25 WBC (5.0-10.0) 10^3/uL RBC (4.2-5.4) 10^6/uL Hgb (12.0-16.0) g/dL Hct (37.0-47.0) % MCV (80-100) fL MCH (27.0-34.0) pg MCHC (33.0-35.0) g/dL Plt Count (150-450) 10^3/uL Neut % (Auto) (42.2-75.2) % Lymph % (Auto) (20.5-50.1) % [place] % (Auto) (2-8) % Eos % (Auto) (1.0-3.0) % Baso % (Auto) (0.0-1.0) % Sodium 141 D (136-145) mmol/L Potassium 3.2 L (3.5-5.1) mmol/L Chloride 105 D (98-107) mmol/L Carbon Dioxide 25 (21-32) mmol/L Anion Gap 14.2 H (7-13) mEq/L BUN 22 H (7-18) mg/dL Creatinine 0.90 (0.55-1.02) mg/dL Est Cr Clr Drug Dosing 58.12 mL/min Estimated GFR (MDRD) > 60 BUN/Creatinine Ratio 24.4 (No establ ref range) Glucose 271 H (70-99) mg/dL POC Glucose (70-99) mg/dL Lactic Acid 3.7 H* (0.4-2.0) mmol/L Calcium 7.1 L (8.5-10.1) mg/dL Phosphorus (2.6-4.7) mg/dL Magnesium (1.8-2.4) mg/dL Total Bilirubin 0.3 (0.2-1.0) mg/dL AST 31 (15-37) U/L ALT 58 (14-59) U/L Alkaline Phosphatase 159 H (46-116) U/L Total Protein 4.6 L (6.4-8.2) g/dL Albumin 2.2 L (3.4-5.0) g/dL Globulin 2.4 Albumin/Globulin Ratio 0.92 Urine Color Yellow (YELLOW) Urine Appearance Clear (CLEAR) Urine pH 5.5 (5.0-9.0) Ur Specific [place] <= 1.005 (1.005-1.030) Urine Protein Negative (NEGATIVE) Urine Glucose (UA) >=1000 H (NEGATIVE) Urine Ketones Negative (NEGATIVE) Urine Occult Blood Negative (NEGATIVE) Urine Nitrite Negative (NEGATIVE) Urine Bilirubin Negative (NEGATIVE) Urine Urobilinogen 0.2 (0.2-1.0) mg/dL Ur Leukocyte Esterase Negative (NEGATIVE) 04/11/21 04/12/21 Range/Units 20:25 00:07 WBC (5.0-10.0) 10^3/uL RBC (4.2-5.4) 10^6/uL Hgb (12.0-16.0) g/dL Hct (37.0-47.0) % MCV (80-100) fL MCH (27.0-34.0) pg MCHC (33.0-35.0) g/dL Plt Count (150-450) 10^3/uL Neut % (Auto) (42.2-75.2) % Lymph % (Auto) (20.5-50.1) % [place] % (Auto) (2-8) % Eos % (Auto) (1.0-3.0) % Baso % (Auto) (0.0-1.0) % Sodium (136-145) mmol/L Potassium (3.5-5.1) mmol/L Chloride (98-107) mmol/L Carbon Dioxide (21-32) mmol/L Anion Gap (7-13) mEq/L BUN (7-18) mg/dL Creatinine (0.55-1.02) mg/dL Est Cr Clr Drug Dosing mL/min Estimated GFR (MDRD) BUN/Creatinine Ratio (No establ ref range) Glucose (70-99) mg/dL POC Glucose 266 H (70-99) mg/dL Lactic Acid 3.1 H* (0.4-2.0) mmol/L Calcium (8.5-10.1) mg/dL Phosphorus (2.6-4.7) mg/dL Magnesium (1.8-2.4) mg/dL Total Bilirubin (0.2-1.0) mg/dL AST (15-37) U/L ALT (14-59) U/L Alkaline Phosphatase (46-116) U/L Total Protein (6.4-8.2) g/dL Albumin (3.4-5.0) g/dL Globulin Albumin/Globulin Ratio Urine Color (YELLOW) Urine Appearance (CLEAR) Urine pH (5.0-9.0) Ur Specific [place] (1.005-1.030) Urine Protein (NEGATIVE) Urine Glucose (UA) (NEGATIVE) Urine Ketones (NEGATIVE) Urine Occult Blood (NEGATIVE) Urine Nitrite (NEGATIVE) Urine Bilirubin (NEGATIVE) Urine Urobilinogen (0.2-1.0) mg/dL Ur Leukocyte Esterase (NEGATIVE) Result Diagrams: 04/11/21 17:08 04/12/21 05:45 Sepsis Event Note - Evaluation Sepsis Screening Result: No Definite Risk - Focused Exam Vital Signs: Vital Signs Temp Pulse Resp BP Pulse Ox 04/12/21 03:51 98.4 F 77 16 140/82 98 04/11/21 21:39 99.0 F 100 18 150/86 H 99 04/11/21 19:33 98.9 F 78 18 161/94 H 96 - Problem List & Annotations (1) Anxiety SNOMED Code(s): 36194024 Code(s): F41.9 - ANXIETY DISORDER, UNSPECIFIED Status: Acute Current Visit: No (2) DM2 (diabetes mellitus, type 2) SNOMED Code(s): 10481373 Code(s): E11.9 - TYPE 2 DIABETES MELLITUS WITHOUT COMPLICATIONS Status: Acute Current Visit: Yes (3) HTN (hypertension) SNOMED Code(s): 02698570 Code(s): I10 - ESSENTIAL (PRIMARY) HYPERTENSION Status: Acute Current Visit: No (4) Hyperglycemia SNOMED Code(s): 79518930 Code(s): R73.9 - HYPERGLYCEMIA, UNSPECIFIED Status: Acute Current Visit: Yes (5) Lactic acid acidosis SNOMED Code(s): 91035985 Code(s): E87.2 - ACIDOSIS Status: Acute Current Visit: Yes (6) Steroid-induced hyperglycemia SNOMED Code(s): 600300650 Code(s): R73.9 - HYPERGLYCEMIA, UNSPECIFIED; T38.0X5A - ADVERSE EFFECT OF GLUCOCORT/SYNTH ANALOG, INIT Status: Acute Current Visit: Yes (7) Temporal arteritis SNOMED Code(s): 167518522 Code(s): M31.6 - OTHER GIANT CELL ARTERITIS Status: Acute Current Visit: Yes - Problem List Review Problem List Initiated/Reviewed/Updated: Yes - My Orders Last 24 Hours: My Active Orders 04/11/21 Dinner Consistent Carbohydrate Diet [DIET] 04/11/21 21:39 Oxygen Therapy [RC] PRN VTE/DVT Education [] 08,20 Vital Signs [RC] 00,04,08,12,16,20 Acetaminophen [TylenoL] 650 mg PO Q4H PRN Ondansetron [Zofran] 4 mg IVPUSH Q6H PRN Resuscitation Status Routine 04/11/21 21:41 Blood Glucose Check, Bedside [] WITHMEALSANDBED Dextrose 50% in Water 50 ml IVPUSH Q15M PRN Glucagon,Human Recombinant [GlucaGen] 1 mg IM Q15M PRN 04/11/21 21:45 Sodium Chloride 0.9% with KCl [Normal Saline with 40 mEq KCl] 1,000 ml IV ASDIRECTED 04/11/21 22:27 Up ad Divine [RC] ASDIRECTED 04/12/21 05:45 BMP [BASIC METABOLIC PANEL,BMP] [CHEM] AM LACTATE SEPSIS W/ REFLEX [CHEM] DAILY 04/12/21 08:00 Insulin Lispro [HumaLOG] See Protocol SUBCUT WITHMEALSANDBED predniSONE 60 mg PO WITHBREAKFAST 04/12/21 09:00 Aspirin 81 mg PO DAILY Citalopram [Celexa] 10 mg PO DAILY Enoxaparin [Lovenox] 40 mg SUBCUT DAILY Labetalol [Normodyne] 200 mg PO DAILY amLODIPine [Norvasc] 5 mg PO DAILY 04/12/21 21:00 Insulin Glarg,Human.Rec.Analog [LantUS] 55 unit SUBCUT BEDTIME - Plan Plan:: Patient is a 60-year-old female with a history of type 2 diabetes on insulin therapy who presents with steroid-induced hyperglycemia due to recent p.o. prednisone for temporal arteritis. Patient was recently hospitalized with identical symptoms approximately 2 days prior. # Hyperglycemia, HHS, lactic acidosis -Glucose significantly elevated at 703, decreased to 271 after 5 units of IV insulin. Overall presentation is nearly identical to prior hospitalization. After prolonged discussion with patient I am worried that she is utilizing her insulin pens incorrectly as she is telling me that she will dial to 0 when she is injecting. Hyperglycemia secondary to steroid use and ? accidental medical non-compliance -Home Lantus 55 units, will do medium dose sliding scale insulin - will have patient bring in her insulin supplies and have her demonstrate proper injection technique - will discuss with family members at home and patient will need very close follow up with PCP -carb controlled diet, significant fluid resuscitation - electrolyte repletion given -Repeat glucose already dramatically improved to upper 100s with only 5 units of IV insulin -Elevated lactate at 3.7-3.2 -repeat lactate normal -will hold metformin and victoza while hospitalized - may hold metformin at discharge given recurrent lactic acidosis and to simplify medication regiment for now # EFFIE - already resolved with repeat labs prior to admission # Temporal arteritis -Continue p.o. prednisone 60 mg p.o. daily - patient was started on PPI and appears to be atovaquone for P ENMANUEL prophylaxis although patient is unsure as this was just started on Wednesday -Patient had rheumatology follow-up and they repeated labs and are discussing possible biopsies next week # Chronic medical conditions Hypertension - continue labetalol 200 mg p.o. daily, continue amlodipine Anxiety/depression -continue citalopram 10 mg daily Fluid status 150 mL an hour NS with KCl - will d/c pending oral intake Electrolytes-wnl Diet- carb controlled DVT pro - lovenox 1 additional day with IV fluids, ensure adequate glucose control, likely discharge tomorrow
[2021-04-12 06:22] LABS: ANION GAP 12.2 mEq/L (7-13); CHLORIDE,CL 107 mmol/L (98-107); SODIUM,NA 141 mmol/L (136-145)
[2021-04-12] MEDS: amLODIPine 5 MG Tab PO SCH (08:50)
[2021-04-12] MEDS: Citalopram 20 MG Tab PO SCH (08:50)
[2021-04-12] MEDS: Labetalol 100 MG Tab PO SCH (08:50)
[2021-04-12] MEDS: predniSONE 20 MG Tab PO SCH (08:51)
[2021-04-12] MEDS: Aspirin 81 MG Tab.Chew PO SCH (08:53)
[2021-04-12] MEDS: Enoxaparin 40 MG/0.4 ML Syringe SUBCUT SCH (08:54)
[2021-04-12] MEDS: Insulin Lispro 100 Units/ML 3 ML Vial SUBCUT SCH ×2 (09:02→12:36)
[2021-04-12] MEDS: INSULIN ASPART 100 UNIT/ML SUBCUT SCH ×3 (15:32→21:32)
[2021-04-12] MEDS ORDERED: INSULIN ASPART 100 UNIT/ML SUBCUT SCH (18:00)
[2021-04-12] MEDS ORDERED: Loperamide 2 MG Cap PO PRN (19:24)
[2021-04-12] MEDS ORDERED: Insulin Lispro 100 Units/ML 3 ML Vial SUBCUT ONE (19:27)
[2021-04-12] MEDS ORDERED: NOVOLOG SQ ONE (19:33)
[2021-04-12] MEDS ORDERED: Insulin Glarg,Human.Rec.Analog 100 Unit/ML SUBCUT SCH (21:00)
[2021-04-12] MEDS ORDERED: INSULIN GLARG HUMAN REC ANALOG 100 UNIT/ML SUBCUT SCH (21:00)
--- NOTE | 2021-04-13 07:00 | PCM.PN ---
- General Info Date of Service: 04/13/21 Admission Dx/Problem (Free Text): Admission Diagnosis/Problem Admission Diagnosis/Problem Lactic acidosis Subjective Update: Patient stated that she felt well overnight. States her appetite is good and she denies any chest pains or pressures, shortness breath, abdominal pain, nausea or vomiting. Again we discussed the appropriate and proper use of her insulin and she agreed that she had been utilizing her pants wrong. States she still has some blurry vision which has not dramatically changed. Main review of systems is negative except as listed above. - Patient Data Vitals - Most Recent: Last Vital Signs Temp 98.0 F 04/12/21 19:20 Pulse 70 04/12/21 19:20 Resp 16 04/12/21 19:20 BP 142/83 H 04/12/21 19:20 Pulse Ox 97 04/12/21 19:20 Weight - Most Recent: 154 lb 9.6 oz I&O - Last 24 Hours: Intake & Output 04/12/21 04/12/21 04/13/21 14:59 22:59 06:59 Intake Total 810 850 Output Total 500 Balance 810 350 Lab Results Last 24 Hours: Laboratory Results - last 24 hr 04/12/21 04/12/21 04/12/21 Range/Units 07:44 11:16 16:56 POC Glucose 190 H 332 H 477 H* (70-99) mg/dL 04/12/21 04/12/21 Range/Units 19:11 21:21 POC Glucose 527 H* 398 H (70-99) mg/dL Med Orders - Current: Current Medications Acetaminophen (Acetaminophen 325 Mg Tab) 650 mg PO Q4H PRN PRN Reason: Pain (Mild 1-3)/fever Amlodipine Besylate (Amlodipine 5 Mg Tab) 5 mg PO DAILY [facility] Last Admin: 04/12/21 08:50 Dose: 5 mg Documented by: Aspirin (Aspirin 81 Mg Tab.Chew) 81 mg PO DAILY [facility] Last Admin: 04/12/21 08:53 Dose: 81 mg Documented by: Citalopram Hydrobromide (Citalopram 20 Mg Tab) 10 mg PO DAILY [facility] Last Admin: 04/12/21 08:50 Dose: 10 mg Documented by: Dextrose/Water (50% Dextrose In Water 50 Ml Syringe) 50 ml IVPUSH Q15M PRN PRN Reason: Hypoglycemia Enoxaparin Sodium (Enoxaparin 40 Mg/0.4 Ml Syringe) 40 mg SUBCUT DAILY [facility] Last Admin: 04/12/21 08:54 Dose: 40 mg Documented by: Glucagon (Glucagon,Human Recombinant 1 Mg Vial) 1 mg IM Q15M PRN PRN Reason: Hypoglycemia Labetalol HCl (Labetalol 100 Mg Tab) 200 mg PO DAILY [facility] Last Admin: 04/12/21 08:50 Dose: 200 mg Documented by: Loperamide HCl (Loperamide 2 Mg Cap) 2 mg PO Q4H PRN PRN Reason: Diarrhea Insulin Glarg,Human. Rec.Analog (Lantus) 100 Unit/MlOwn Med 55 each SUBCUT BEDTIME [facility] Last Admin: 04/12/21 21:33 Dose: 55 each Documented by: Insulin Aspart( Novolog) 100 Units/Ml 3 MlOwn Med 0 each SUBCUT WITHM EALSANDBED [facility]; Protocol Last Admin: 04/12/21 21:32 Dose: 10 each Documented by: Ondansetron HCl (Ondansetron 4 Mg/2 Ml Sdv) 4 mg IVPUSH Q6H PRN PRN Reason: Nausea/Vomiting Prednisone (Prednisone 20 Mg Tab) 60 mg PO WITHBREAKFAST [facility] Last Admin: 04/12/21 08:51 Dose: 60 mg Documented by: Sodium Chloride (Sodium Chloride 0.9% 10 Ml Syringe) 10 ml FLUSH ASDIRECTED PRN PRN Reason: Keep Vein Open Last Admin: 04/11/21 17:31 Dose: 10 ml Documented by: Discontinued Medications Dextrose/Water (50% Dextrose In Water 50 Ml Syringe) 50 ml IVPUSH Q15M PRN PRN Reason: Hypoglycemia Glucagon (Glucagon,Human Recombinant 1 Mg Vial) 1 mg IM Q15M PRN PRN Reason: Hypoglycemia Sodium Chloride (Normal Saline) 1,000 mls @ 999 mls/hr IV .BOLUS ONE Stop: 04/11/21 18:35 Last Admin: 04/11/21 17:36 Dose: 999 mls/hr Documented by: Sodium Chloride (Normal Saline) 1,000 mls @ 999 mls/hr IV .BOLUS ONE Stop: 04/11/21 19:23 Last Admin: 04/11/21 18:25 Dose: 999 mls/hr Documented by: Sodium Chloride (Normal Saline) 1,000 mls @ 999 mls/hr IV ASDIRECTED [facility] Sodium Chloride (Normal Saline) 1,000 mls @ 125 mls/hr IV ASDIRECTED [facility] Sodium Chloride (Normal Saline) 1,000 mls @ 999 mls/hr IV STAT STA Stop: 04/11/21 21:45 Last Admin: 04/11/21 20:45 Dose: 999 mls/hr Documented by: Sodium Chloride (Normal Saline) 1,000 mls @ 125 mls/hr IV NOW STA Stop: 04/12/21 05:34 Potassium Chloride/Sodium Chloride (Normal Saline With 40 Meq Kcl) 1,000 mls @ 150 mls/hr IV ASDIRECTED [facility] Last Admin: 04/12/21 05:46 Dose: 150 mls/hr Documented by: Magnesium Sulfate 2 gm/ Premix 50 mls @ 25 mls/hr IV ONETIME ONE Stop: 04/11/21 23:44 Last Admin: 04/11/21 22:42 Dose: 25 mls/hr Documented by: Insulin Glargine (Insulin Glarg,Human.Rec.Analog 100 Unit/Ml) 55 unit SUBCUT BEDTIME [facility] Insulin Human Lispro (Insulin Lispro 100 Units/Ml 3 Ml Vial) 0 unit SUBCUT WITHMEALSANDBED [facility]; Protocol Last Admin: 04/12/21 12:36 Dose: Not Given Documented by: Insulin Human Regular (Insulin Regular, Human 100 Units/Ml 3 Ml Vial) 5 unit IV ONETIME ONE Stop: 04/11/21 18:19 Last Admin: 04/11/21 18:25 Dose: 5 units Documented by: Insulin Aspart( Novolog) 100 Units/Ml 3 MlOwn Med 0 each SUBCUT WITHMEALSANDBED [facility]; Protocol Novolog Own Med * (*) 0 each SQ ONETIME ONE Stop: 04/12/21 19:34 Last Admin: 04/12/21 20:02 Dose: 5 each Documented by: Sodium Phosphate (Phosphorus #1 250 Mg Tab) 250 mg PO ONETIME ONE Stop: 04/11/21 21:43 Last Admin: 04/11/21 22:41 Dose: 250 mg Documented by: - Exam General: Alert, Oriented HEENT: Pupils Equal, Other (bilateral blurry vision) Neck: Supple Lungs: Clear to Auscultation, Normal Respiratory Effort Cardiovascular: Regular Rate, Regular Rhythm GI/Abdominal Exam: Normal Bowel Sounds, Soft Back Exam: Normal Inspection Extremities: Normal Inspection Peripheral Pulses: 2+: Radial (L), Radial (R) Skin: Warm, Dry Neurological: No New Focal Deficit Psy/Mental Status: Alert - Patient Data Lab Results Last 24 hrs: Laboratory Results - last 24 hr 04/12/21 04/12/21 04/12/21 Range/Units 07:44 11:16 16:56 POC Glucose 190 H 332 H 477 H* (70-99) mg/dL 04/12/21 04/12/21 Range/Units 19:11 21:21 POC Glucose 527 H* 398 H (70-99) mg/dL Result Diagrams: 04/11/21 17:08 04/12/21 05:45 Sepsis Event Note - Evaluation Sepsis Screening Result: No Definite Risk - Focused Exam Vital Signs: Vital Signs Temp Pulse Resp BP Pulse Ox 04/12/21 19:20 98.0 F 70 16 142/83 H 97 - Problem List & Annotations (1) Anxiety SNOMED Code(s): 89747054 Code(s): F41.9 - ANXIETY DISORDER, UNSPECIFIED Status: Acute Current Visit: No (2) DM2 (diabetes mellitus, type 2) SNOMED Code(s): 87699738 Code(s): E11.9 - TYPE 2 DIABETES MELLITUS WITHOUT COMPLICATIONS Status: Acute Current Visit: Yes (3) HTN (hypertension) SNOMED Code(s): 72688446 Code(s): I10 - ESSENTIAL (PRIMARY) HYPERTENSION Status: Acute Current Visit: No (4) Hyperglycemia SNOMED Code(s): 72002333 Code(s): R73.9 - HYPERGLYCEMIA, UNSPECIFIED Status: Acute Current Visit: Yes (5) Lactic acid acidosis SNOMED Code(s): 51090446 Code(s): E87.2 - ACIDOSIS Status: Acute Current Visit: Yes (6) Steroid-induced hyperglycemia SNOMED Code(s): 610830753 Code(s): R73.9 - HYPERGLYCEMIA, UNSPECIFIED; T38.0X5A - ADVERSE EFFECT OF GLUCOCORT/SYNTH ANALOG, INIT Status: Acute Current Visit: Yes (7) Temporal arteritis SNOMED Code(s): 478367556 Code(s): M31.6 - OTHER GIANT CELL ARTERITIS Status: Acute Current Visit: Yes - Problem List Review Problem List Initiated/Reviewed/Updated: Yes - My Orders Last 24 Hours: My Active Orders 04/12/21 08:00 predniSONE 60 mg PO WITHBREAKFAST 04/12/21 09:00 Aspirin 81 mg PO DAILY Citalopram [Celexa] 10 mg PO DAILY Enoxaparin [Lovenox] 40 mg SUBCUT DAILY Labetalol [Normodyne] 200 mg PO DAILY amLODIPine [Norvasc] 5 mg PO DAILY 04/12/21 12:00 Non-Formulary Medication [NF Drug] 0 each SUBCUT WITHMEALSANDBED 04/12/21 19:24 Loperamide [Imodium] 2 mg PO Q4H PRN 04/12/21 21:00 Non-Formulary Medication [NF Drug] 55 each SUBCUT BEDTIME - Plan Plan:: Patient is a 60-year-old female with a history of type 2 diabetes on insulin therapy who presents with steroid-induced hyperglycemia due to recent p.o. prednisone for temporal arteritis. Patient was recently hospitalized with identical symptoms approximately 2 days prior. # Hyperglycemia, HHS, lactic acidosis -Significant elevation secondary to steroids and accidental noncompliance per patient - Had patient bring in her supplies have her use her own insulin last evening - blood glucose levels yesterday [phone] - patient did NOT initially receive her Lantus but did receive 55 units of Lantus last evening -carb controlled diet, discontinued fluids yesterday -will hold metformin and victoza while hospitalized - may hold metformin at discharge given recurrent lactic acidosis and to simplify medication regiment for now -Given the above findings will transition to 30 a.m. and p.m., high-dose sliding scale insulin at discharge, patient was follow-up with her primary care provider on Wednesday # EFFIE - already resolved with repeat labs prior to admission # Temporal arteritis -Continue p.o. prednisone 60 mg p.o. daily - patient was started on PPI and appears to be atovaquone for PJP prophylaxis although patient is unsure as this was just started on Wednesday -Patient had rheumatology follow-up and they repeated labs and are discussing possible biopsies next week # Chronic medical conditions Hypertension - continue labetalol 200 mg p.o. daily, continue amlodipine Anxiety/depression -continue citalopram 10 mg daily Fluid status 150 mL an hour NS with KCl - will d/c pending oral intake Electrolytes-wnl Diet- carb controlled DVT pro - lovenox Dispo-patient is medically stable for discharge, awaiting appropriate glucose control and will likely discharge later today
[2021-04-13] MEDS ORDERED: Insulin Glarg,Human.Rec.Analog 100 Unit/ML SUBCUT ONE (07:49)
[2021-04-13] MEDS ORDERED: Glucagon,Human Recombinant 1 MG Vial IM PRN (07:49)
[2021-04-13] MEDS ORDERED: 50% Dextrose in Water 50 ML Syringe IVPUSH PRN (07:49)
[2021-04-13] MEDS ORDERED: INSULIN GLARG HUMAN REC ANALOG 100 UNIT/ML SUBCUT ONE (08:00)
[2021-04-13] MEDS: Labetalol 100 MG Tab PO SCH (08:51)
[2021-04-13] MEDS: amLODIPine 5 MG Tab PO SCH (08:51)
[2021-04-13] MEDS: Citalopram 20 MG Tab PO SCH (08:52)
[2021-04-13] MEDS: Aspirin 81 MG Tab.Chew PO SCH (08:53)
[2021-04-13] MEDS ORDERED: predniSONE 10 MG Tab PO ONE (09:26)
[2021-04-13] MEDS: Enoxaparin 40 MG/0.4 ML Syringe SUBCUT SCH (09:41)
[2021-04-13] MEDS: INSULIN ASPART 100 UNIT/ML SUBCUT SCH ×2 (09:41→12:34)
[2021-04-13] MEDS: predniSONE 20 MG Tab PO SCH (09:43)
--- NOTE | 2021-04-13 10:14 | PCM.DCSUM1 ---
Discharge Summary - Hospital Course Free Text/Narrative:: 60-year-old female with a past medical history of type 2 diabetes on insulin, recent diagnosis of temporal arteritis on high-dose p.o. prednisone, hypertension who presents with recurrent hyperglycemia. Patient was recently admitted on 04/09/21 for identical concerns. From prior note " Patient states that approximately 2 weeks ago she was diagnosed with what her primary believes is temporal arteritis. Patient states that she had been having severe jaw pain, left-sided temporal pain. States that she had some labs which are similar elevated ESR and CRP and was started on significant prednisone 60 mg daily. She states that she felt better but over the last 3 to 4 days she has had increased bilateral blurry vision, generalized fatigue, increased thirst, increased urination. In the emergency department she was hemodynamically stable laboratory values included a sodium 123 with corrected to 134, potassium 4.3, creatinine 1.56 I am increased her baseline, WBC 15.9, hemoglobin 13.7, platelet count 388, AST 38, ALT 77, lactate 3.2. Upon discussion with patient she reiterates the above story. Patient states that the vision changes in general malaise she otherwise feels well. Patient denies any chest pains or pressures, abdominal pain, nausea or vomiting. Patient states that she has been eating today but her oral intake has been otherwise well. She states that she uses 54 units of Lantus at night and this was increased recently with her steroids she also just restarted yesterday on aspart 5 3 times daily with meals. States that her glucose monitor Reading "H" which she has not seen before she was confused that is why took her longer to come in." "Patient's blood sugar significantly improved with 10 units of normal insulin. She was given her usual 55 units of long-acting insulin at night and a medium sliding scale insulin was implemented. Patient's blood sugar significantly improved. Patient also had an acute kidney injury and was dehydrated and was given significant volume resuscitation. Repeat labs the following morning showed improvement with normalization of her anion gap, creatinine to baseline, blood glucose levels in the 160s. Prolonged discussion was had with patient about utilizing her home long-acting insulin at the current dose and the changing to a sliding scale insulin for her short acting which was provided to her. Patient states that she has insulin supplies, meters into strips. Patient to follow-up with her PCP after rheumatology visit." Patient presents today and states that she had gone to her rheumatology appointment and they had done some repeat labs following day and they stated that her blood sugar was significantly elevated and she should go to the emergency department for evaluation. Patient tells me that since her discharge on Wednesday she has only had high readings on her glucose monitor. Patient told emergency services and myself that she was taking 12 units 3 times daily as listed on the medium sliding scale insulin over the last day. I had prolonged discussion with patient as she walked me through how she takes her insulin. She states that recently due to what she describes as some discomfort at her injection sites it appears that when she is injecting she is turning her dial on her insulin pens to 0. Patient again complains of bilateral blurry vision that corresponds to her elevated glucose levels. Is complaining of also significant polyuria over the last several days. Patient arrived to the emergency department she was hemodynamically stable. Maintaining oxygen saturations well on room air. Laboratory values showed a WBC of 14.8, hemoglobin 12.7, plate count 252. Laboratory values needle identical to prior hospitalization. Other laboratory testing included a sodium 129, potassium of 4.0, creatinine 1.32. Glucose was 703. Lactic acid 3.7. Patient was given 5 units IV insulin and 1 L fluid bolus. After approximately 3 hours labs were repeated and showed a sodium improved to 141, potassium 3.2, creatinin e improved to 0.90. Glucose had improved dramatically to 271. Repeat lactate 3.1. UA showed greater than 1000 glucose but was otherwise unremarkable. Given her elevated lactic acidosis and concerns of recent hospitalization patient was readmitted for further evaluation. Review of systems is negative except those listed above. Patient was admitted for further management. After prolonged discussion it was discovered the patient was tiling her insulin pens down to 0 while she was injecting them likely not obtaining significant or appropriate amount of her insulin. This in combination with her recent high level of steroids contributed to her hyperglycemia. We had patient bring in her own Lantus and short acting insulin and had her use her pens and she was educated and was able to demo nstrate proper technique. Patient did have elevation in blood glucose levels into the evening although that first hospital day because she was admitted so late she did not have her Lantus overnight. Recommendations at discharge include splitting her Lantus to 35 units in the evening before bed and 35 units in a.m. Also splitting her prednisone into a.m. and afternoon doses. Recommend that she transitions from medium dose sliding scale to high-dose IV scale insulin. Recommend that she write down all of her blood sugars and take it 4 times per day and follow-up with her PCP which is already scheduled this following Wednesday. Recommend discontinuing Metformin at least for short duration given her multiple repeated hospitalizations with EFFIE and lactic acidosis. Patient can continue her GLP-1 injection. This was explained to patient at length and she felt comfortable with the plan. Patient was medically stable for discharge be discharged home. - Discharge Data Discharge Date: 04/13/21 Discharge Disposition: Home, Self-Care 01 Condition: Stable - Referral to Home Health Primary Care Physician: PCP None - Discharge Diagnosis/Problem(s) (1) Anxiety SNOMED Code(s): 29923979 ICD Code: F41.9 - ANXIETY DISORDER, UNSPECIFIED Status: Acute Current Visit: No (2) DM2 (diabetes mellitus, type 2) SNOMED Code(s): 90441652 ICD Code: E11.9 - TYPE 2 DIABETES MELLITUS WITHOUT COMPLICATIONS Status: Acute Current Visit: Yes (3) HTN (hypertension) SNOMED Code(s): 64013404 ICD Code: I10 - ESSENTIAL (PRIMARY) HYPERTENSION Status: Acute Current Visit: No (4) Hyperglycemia SNOMED Code(s): 63117315 ICD Code: R73.9 - HYPERGLYCEMIA, UNSPECIFIED Status: Acute Current Visit: Yes (5) Lactic acid acidosis SNOMED Code(s): 31060253 ICD Code: E87.2 - ACIDOSIS Status: Acute Current Visit: Yes (6) Steroid-induced hyperglycemia SNOMED Code(s): 080854243 ICD Code: R73.9 - HYPERGLYCEMIA, UNSPECIFIED; T38.0X5A - ADVERSE EFFECT OF GLUCOCORT/SYNTH ANALOG, INIT Status: Acute Current Visit: Yes (7) Temporal arteritis SNOMED Code(s): 353898469 ICD Code: M31.6 - OTHER GIANT CELL ARTERITIS Status: Acute Current Visit: Yes - Patient Instructions Diet: Diabetic Diet - Discharge Plan *PRESCRIPTION DRUG MONITORING PROGRAM REVIEWED*: Not Applicable *COPY OF PRESCRIPTION DRUG MONITORING REPORT IN PATIENT EVIN: Not Applicable Home Medications: Home Meds Budesonide/Formoterol Fumarate [Symbicort 80-4.5 MCG] 1 puff IH DAILY 10/09/16 [History] Citalopram Hydrobromide [Citalopram HBr] 10 mg PO DAILY 10/09/16 [History] Aspirin [Esther Chewable Aspirin] 81 mg PO DAILY 10/21/16 [History] Labetalol HCl [Labetalol] 200 mg PO DAILY 10/21/16 [History] Loratadine/Pseudoephedrine [Loratadine-Pseudoephed 10-240] 1 each PO DAILY 10/21/16 [History] Magnesium 250 mg PO DAILY 10/21/16 [History] Multivitamin [Multivitamins] 1 tab PO DAILY 10/21/16 [History] Zinc 50 mg PO DAILY 10/21/16 [History] amLODIPine [Norvasc] 5 mg PO DAILY 10/21/16 [History] Liraglutide [Victoza] 18 mg .XX DAILY 04/11/21 [History] Rosuvastatin [Crestor] 5 mg PO DAILY 04/11/21 [History] Insulin Aspart [Insulin Aspart Flexpen] See Protocol SQ QID #0 04/13/21 [Rx] Insulin Glargine,Hum.Rec.Anlog [Lantus Solostar] 35 unit SQ BID #0 04/13/21 [Rx] predniSONE [Prednisone] 30 mg PO BIDMEALS #0 04/13/21 [Rx] Patient Handouts: Daily Diabetes Mellitus Record, Hyperglycemia, [id number], Type 2 Diabetes Mellitus, Self-Care, Adult, [id number], Blood Glucose Monitoring, Adult Referrals: PCP,None [Primary Care Provider] - - Discharge Summary/Plan Comment DC Time >30 min.: Yes Total # of Minutes for Discharge Time: 30 minutes - Patient Data Vitals - Most Recent: Last Vital Signs Temp 98.2 F 04/13/21 07:52 Pulse 59 L 04/13/21 08:51 Resp 20 04/13/21 07:52 BP 152/84 H 04/13/21 08:51 Pulse Ox 98 04/13/21 07:52 Weight - Most Recent: 154 lb 9.6 oz I&O - Last 24 hours: Intake & Output 04/12/21 04/13/21 04/13/21 22:59 06:59 14:59 Intake Total 850 Output Total 500 Balance 350 Lab Results - Last 24 hrs: Laboratory Results - last 24 hr 04/12/21 04/12/21 04/12/21 Range/Units 11:16 16:56 19:11 POC Glucose 332 H 477 H* 527 H* (70-99) mg/dL 04/12/21 04/13/21 Range/Units 21:21 07:45 POC Glucose 398 H 117 H (70-99) mg/dL Med Orders - Current: Current Medications Acetaminophen (Acetaminophen 325 Mg Tab) 650 mg PO Q4H PRN PRN Reason: Pain (Mild 1-3)/fever Amlodipine Besylate (Amlodipine 5 Mg Tab) 5 mg PO DAILY [facility] Last Admin: 04/13/21 08:51 Dose: 5 mg Documented by: Aspirin (Aspirin 81 Mg Tab.Chew) 81 mg PO DAILY [facility] Last Admin: 04/13/21 08:53 Dose: 81 mg Documented by: Citalopram Hydrobromide (Citalopram 20 Mg Tab) 10 mg PO DAILY [facility] Last Admin: 04/13/21 08:52 Dose: 10 mg Documented by: Dextrose/Water (50% Dextrose In Water 50 Ml Syringe) 50 ml IVPUSH Q15M PRN PRN Reason: Hypoglycemia Enoxaparin Sodium (Enoxaparin 40 Mg/0.4 Ml Syringe) 40 mg SUBCUT DAILY [facility] Last Admin: 04/13/21 09:41 Dose: Not Given Documented by: Glucagon (Glucagon,Human Recombinant 1 Mg Vial) 1 mg IM Q15M PRN PRN Reason: Hypoglycemia Labetalol HCl (Labetalol 100 Mg Tab) 200 mg PO DAILY [facility] Last Admin: 04/13/21 08:51 Dose: 200 mg Documented by: Loperamide HCl (Loperamide 2 Mg Cap) 2 mg PO Q4H PRN PRN Reason: Diarrhea Insulin Glarg,Human. Rec.Analog (Lantus) 100 Unit/MlOwn Med 55 each SUBCUT BEDTIME [facility] Last Admin: 04/12/21 21:33 Dose: 55 each Documented by: Insulin Aspart( Novolog) 100 Units/Ml 3 MlOwn Med 0 each SUBCUT WITHMEALSANDBED [facility]; Protocol Last Admin: 04/13/21 09:41 Dose: Not Given Documented by: Ondansetron HCl (Ondansetron 4 Mg/2 Ml Sdv) 4 mg IVPUSH Q6H PRN PRN Reason: Nausea/Vomiting Sodium Chloride (Sodium Chloride 0.9% 10 Ml Syringe) 10 ml FLUSH ASDIRECTED PRN PRN Reason: Keep Vein Open Last Admin: 04/11/21 17:31 Dose: 10 ml Documented by: Discontinued Medications Dextrose/Water (50% Dextrose In Water 50 Ml Syringe) 50 ml IVPUSH Q15M PRN PRN Reason: Hypoglycemia Dextrose/Water (50% Dextrose In Water 50 Ml Syringe) 50 ml IVPUSH Q15M PRN PRN Reason: Hypoglycemia Glucagon (Glucagon,Human Recombinant 1 Mg Vial) 1 mg IM Q15M PRN PRN Reason: Hypoglycemia Glucagon (Glucagon,Human Recombinant 1 Mg Vial) 1 mg IM Q15M PRN PRN Reason: Hypoglycemia Sodium Chloride (Normal Saline) 1,000 mls @ 999 mls/hr IV .BOLUS ONE Stop: 04/11/21 18:35 Last Admin: 04/11/21 17:36 Dose: 999 mls/hr Documented by: Sodium Chloride (Normal Saline) 1,000 mls @ 999 mls/hr IV .BOLUS ONE Stop: 04/11/21 19:23 Last Admin: 04/11/21 18:25 Dose: 999 mls/hr Documented by: Sodium Chloride (Normal Saline) 1,000 mls @ 999 mls/hr IV ASDIRECTED [facility] Sodium Chloride (Normal Saline) 1,000 mls @ 125 mls/hr IV ASDIRECTED [facility] Sodium Chloride (Normal Saline) 1,000 mls @ 999 mls/hr IV STAT STA Stop: 04/11/21 21:45 Last Admin: 04/11/21 20:45 Dose: 999 mls/hr Documented by: Sodium Chloride (Normal Saline) 1,000 mls @ 125 mls/hr IV NOW STA Stop: 04/12/21 05:34 Potassium Chloride/Sodium Chloride (Normal Saline With 40 Meq Kcl) 1,000 mls @ 150 mls/hr IV ASDIRECTED [facility] Last Admin: 04/12/21 05:46 Dose: 150 mls/hr Documented by: Magnesium Sulfate 2 gm/ Premix 50 mls @ 25 mls/hr IV ONETIME ONE Stop: 04/11/21 23:44 Last Admin: 04/11/21 22:42 Dose: 25 mls/hr Documented by: Insulin Glargine (Insulin Glarg,Human.Rec.Analog 100 Unit/Ml) 55 unit SUBCUT BEDTIME [facility] Insulin Glargine (Insulin Glarg,Human.Rec.Analog 100 Unit/Ml) 10 unit SUBCUT ONETIME ONE Stop: 04/13/21 07:50 Last Admin: 04/13/21 08:30 Dose: 10 units Documented by: Insulin Human Lispro (Insulin Lispro 100 Units/Ml 3 Ml Vial) 0 unit SUBCUT WITHMEALSANDBED [facility]; Protocol Last Admin: 04/12/21 12:36 Dose: Not Given Documented by: Insulin Human Regular (Insulin Regular, Human 100 Units/Ml 3 Ml Vial) 5 unit IV ONETIME ONE Stop: 04/11/21 18:19 Last Admin: 04/11/21 18:25 Dose: 5 units Documented by: Insulin Aspart( Novolog) 100 Units/Ml 3 MlOwn Med 0 each SUBCUT WITHMEALSANDBED [facility]; Protocol Novolog Own Med * (*) 0 each SQ ONETIME ONE Stop: 04/12/21 19:34 Last Admin: 04/12/21 20:02 Dose: 5 each Documented by: Insulin Glarg,Human. Rec.Analog (Lantus) 100 Unit/MlOwn Med 10 each SUBCUT ONETIME ONE Stop: 04/13/21 08:01 Last Admin: 04/13/21 09:02 Dose: 10 each Documented by: Prednisone (Prednisone 20 Mg Tab) 60 mg PO WITHBREAKFAST [facility] Last Admin: 04/13/21 09:43 Dose: Not Given Documented by: Prednisone (Prednisone 10 Mg Tab) 30 mg PO ONETIME ONE Stop: 04/13/21 09:27 Last Admin: 04/13/21 09:47 Dose: 30 mg Documented by: Sodium Phosphate (Phosphorus #1 250 Mg Tab) 250 mg PO ONETIME ONE Stop: 04/11/21 21:43 Last Admin: 04/11/21 22:41 Dose: 250 mg Documented by:
[2021-04-13 11:53] VITALS: BP 148/83; PULSE 66
== END 2021-04-13 13:10 | disposition home or self-care (01) | DRG 638 ==
LOC: DL.ED 16:40 → DL.MS 21:22
PROVIDERS: ADMIT Internal Medicine; ATTEND Internal Medicine
DX: E11.00 Type 2 diabetes mellitus with hyperosmolarity without nonketotic hyperglycemic-hyperosmolar coma (NKHHC) (principal); N17.9 Acute kidney failure, unspecified; E87.2 Acidosis; E11.65 Type 2 diabetes mellitus with hyperglycemia; E87.6 Hypokalemia; E83.42 Hypomagnesemia; E83.39 Other disorders of phosphorus metabolism; M31.6 Other giant cell arteritis; T38.0X5A Adverse effect of glucocorticoids and synthetic analogues, initial encounter; F41.9 Anxiety disorder, unspecified; F32.A Depression, unspecified; I10 Essential (primary) hypertension; J45.909 Unspecified asthma, uncomplicated; E66.9 Obesity, unspecified; H53.8 Other visual disturbances; Z91.14 Patient's other noncompliance with medication regimen; Z88.0 Allergy status to penicillin; Z79.4 Long term (current) use of insulin; Z79.82 Long term (current) use of aspirin; Z79.899 Other long term (current) drug therapy; Z68.26 Body mass index [BMI] 26.0-26.9, adult
CPT/HCPCS: 36415; 80048; 80053; 81003; 82947; 83605; 83735; 84100; 85025; 99285; A9270-GY; J1650; J1815-GY; J3475; J3480; J7030; J7512

== ENCOUNTER 2022-10-05 14:37 | Inpatient (IN) | payer OTHER ==
[2022-10-05] MEDS ORDERED: Sodium Chloride 0.9% 1,000 ML IV ONE ×2 (15:07→16:44)
[2022-10-05] MEDS ORDERED: Ondansetron 4 MG/2 ML SDV IV ONE ×2 (15:07→17:37)
[2022-10-05] MEDS: Sodium Chloride 0.9% 10 ML Syringe FLUSH PRN ×2 (15:31→19:07)
[2022-10-05 15:41] LABS: BASOPHILS PERCENT AUTO 0.1 % (0.0-1.0); EOSINOPHILS PERCENT AUTO 0.7 % (1.0-3.0); HEMATOCRIT 33.4 % (37.0-47.0); HEMOGLOBIN 10.6 g/dL (12.0-16.0); LYMPHOCYTES PERCENT AUTO 8.8 % (20.5-50.1); MEAN CORPUSCULAR HEMOGLOBIN 29.8 pg (27.0-34.0); MEAN CORPUSCULAR HGB CONC 31.7 g/dL (33.0-35.0); MEAN CORPUSCULAR VOLUME 93.8 fL (80-100); MONOCYTES PERCENT AUTO 3.5 % (2-8); NEUTROPHILS PERCENT AUTO 86.9 % (42.2-75.2); PLATELET COUNT,PLT 254 10^3/uL (150-450); RED BLOOD CELL COUNT 3.56 10^6/uL (4.2-5.4); WHITE BLOOD CELL COUNT,WBC 8.6 10^3/uL (5.0-10.0)
[2022-10-05 15:57] LABS: APPEARANCE,URINE CLEAR (CLEAR); BILIRUBIN,URINE NEGATIVE (NEGATIVE); COLOR,URINE YELLOW (YELLOW); GLUCOSE,URINE NEGATIVE (NEGATIVE); KETONES,URINE TRACE (NEGATIVE); LEUKOCYTE ESTERASE,URINE NEGATIVE (NEGATIVE); NITRITE,URINE NEGATIVE (NEGATIVE); OCCULT BLOOD,URINE NEGATIVE (NEGATIVE); PH,URINE 6.5 (5.0-9.0); PROTEIN,URINE 30 (NEGATIVE); UROBILINOGEN,URINE 0.2 mg/dL (0.2-1.0)
[2022-10-05 16:06] LABS: BACTERIA,URINE FEW /HPF (0-FEW/HPF); CALCIUM OXALATE CRYSTALS,URINE RARE /HPF (NOT SEEN); EPITHELIAL CELLS,URINE FEW /HPF (NOT SEEN); MUCUS,URINE FEW /LPF (NOT SEEN); RBC,URINE 0-5 /HPF (0-5); WBC,URINE 0-5 /HPF (0-5/HPF)
[2022-10-05 16:07] LABS: LACTIC ACID 3.8 mmol/L (0.4-2.0)
[2022-10-05 16:11] LABS: ALBUMIN 1.6 g/dL (3.4-5.0); ANION GAP 12.9 mEq/L (7-13); BILIRUBIN TOTAL 1.1 mg/dL (0.2-1.0); BUN/CREATININE RATIO 9.5 (No establ ref range); C-REACTIVE PROTEIN 6.2 mg/dL (0.0-0.9); CALCIUM 7.8 mg/dL (8.5-10.1); CREATININE 1.26 mg/dL (0.55-1.02); EST CRCL DRUG DOSING (CG) 42.72 mL/min; MAGNESIUM 1.8 mg/dL (1.8-2.4); PHOSPHORUS 2.5 mg/dL (2.6-4.7); POTASSIUM,K 3.9 mmol/L (3.5-5.1); PROTEIN TOTAL,TP 5.6 g/dL (6.4-8.2); T4 FREE 1.58 ng/dL (0.76-1.46); TSH ULTRASENSITIVE 3.94 uIU/mL (0.36-3.74)
[2022-10-05 16:12] LABS: A/G RATIO 0.4
[2022-10-05] MEDS ORDERED: Vancomycin 125 MG Cap PO ONE ×2 (17:36→18:41)
[2022-10-05] MEDS ORDERED: Morphine 4 MG/ML Syringe IVPUSH ONE (17:37)
[2022-10-05] MEDS ORDERED: Acetaminophen 325 MG Tab PO PRN (18:37)
[2022-10-05] MEDS ORDERED: LORazepam 0.5 MG Tab PO PRN (18:43)
[2022-10-05] MEDS ORDERED: Glucagon,Human Recombinant 1 MG Vial IM PRN (18:45)
[2022-10-05] MEDS ORDERED: 50% Dextrose in Water 50 ML Syringe IVPUSH PRN (18:45)
[2022-10-05] MEDS: Sodium Chloride 0.9% 1,000 ML IV SCH (19:05)
[2022-10-05] MEDS: metroNIDAZOLE/Normal Saline 500 MG in Premix Bag 1 BAG IV SCH (19:10)
[2022-10-05] MEDS: Pantoprazole 40 MG in Sodium Chloride 0.9% 100 ML IV SCH (21:53)
[2022-10-06] MEDS: metroNIDAZOLE/Normal Saline 500 MG in Premix Bag 1 BAG IV SCH ×3 (02:39→19:40)
[2022-10-06] MEDS: Sodium Chloride 0.9% 1,000 ML IV SCH ×2 (03:35→13:21)
[2022-10-06] MEDS: Pantoprazole 40 MG in Sodium Chloride 0.9% 100 ML IV SCH (03:39)
[2022-10-06 06:30] LABS: BASOPHILS PERCENT AUTO 0.2 % (0.0-1.0); HEMATOCRIT 27.3 % (37.0-47.0); HEMOGLOBIN 8.6 g/dL (12.0-16.0); LYMPHOCYTES PERCENT AUTO 15.2 % (20.5-50.1); MEAN CORPUSCULAR HEMOGLOBIN 30.1 pg (27.0-34.0); MEAN CORPUSCULAR HGB CONC 31.5 g/dL (33.0-35.0); MEAN CORPUSCULAR VOLUME 95.5 fL (80-100); MONOCYTES PERCENT AUTO 5.1 % (2-8); NEUTROPHILS PERCENT AUTO 77.5 % (42.2-75.2); PLATELET COUNT,PLT 173 10^3/uL (150-450); RED BLOOD CELL COUNT 2.86 10^6/uL (4.2-5.4); WHITE BLOOD CELL COUNT,WBC 4.5 10^3/uL (5.0-10.0)
[2022-10-06 07:00] LABS: ANION GAP 9.4 mEq/L (7-13); CALCIUM 6.9 mg/dL (8.5-10.1); CREATININE 0.97 mg/dL (0.55-1.02); EST CRCL DRUG DOSING (CG) 55.5 mL/min; POTASSIUM,K 3.4 mmol/L (3.5-5.1)
[2022-10-06] MEDS: Enoxaparin 40 MG/0.4 ML Syringe SUBCUT SCH (08:57)
[2022-10-06] MEDS ORDERED: Citalopram 20 MG Tab PO SCH (09:00)
[2022-10-06] MEDS: Insulin Lispro 100 Units/ML 3 ML Vial SUBCUT SCH ×2 (09:14→17:23)
[2022-10-06] MEDS: Ondansetron 4 MG/2 ML SDV IVPUSH PRN (21:14)
[2022-10-07] MEDS: metroNIDAZOLE/Normal Saline 500 MG in Premix Bag 1 BAG IV SCH ×3 (02:39→18:23)
[2022-10-07] MEDS: Sodium Chloride 0.9% 1,000 ML IV SCH ×2 (05:22→20:53)
[2022-10-07] MEDS: Pantoprazole 40 MG Tab.CR PO SCH (05:22)
[2022-10-07] MEDS: Acetaminophen/HYDROcodone 325-5 MG Tab PO PRN (08:13)
[2022-10-07] MEDS: Insulin Lispro 100 Units/ML 3 ML Vial SUBCUT SCH ×2 (08:14→17:30)
[2022-10-07] MEDS: Enoxaparin 40 MG/0.4 ML Syringe SUBCUT SCH (09:15)
[2022-10-07] MEDS: Loperamide 2 MG Cap PO PRN (10:52)
[2022-10-07] MEDS: Cholestyramine/Sucrose Powder 4 GM Packet PO SCH (20:46)
[2022-10-08] MEDS: metroNIDAZOLE/Normal Saline 500 MG in Premix Bag 1 BAG IV SCH ×3 (04:00→18:14)
[2022-10-08] MEDS: Pantoprazole 40 MG Tab.CR PO SCH (05:39)
[2022-10-08] MEDS: Insulin Lispro 100 Units/ML 3 ML Vial SUBCUT SCH ×2 (08:09→17:47)
[2022-10-08] MEDS: Enoxaparin 40 MG/0.4 ML Syringe SUBCUT SCH (08:18)
[2022-10-08] MEDS: Cholestyramine/Sucrose Powder 4 GM Packet PO SCH ×2 (09:49→20:28)
[2022-10-08] MEDS: Loperamide 2 MG Cap PO PRN (11:46)
[2022-10-08] MEDS: Acetaminophen/HYDROcodone 325-5 MG Tab PO PRN (12:27)
[2022-10-08] MEDS: Ondansetron 4 MG/2 ML SDV IVPUSH PRN (19:39)
[2022-10-09] MEDS ORDERED: metroNIDAZOLE 250 MG Tab PO SCH (03:00)
[2022-10-09] MEDS: Pantoprazole 40 MG Tab.CR PO SCH (06:03)
[2022-10-09 06:35] LABS: BASOPHILS PERCENT AUTO 0.2 % (0.0-1.0); EOSINOPHILS PERCENT AUTO 2.3 % (1.0-3.0); HEMATOCRIT 28.3 % (37.0-47.0); HEMOGLOBIN 8.8 g/dL (12.0-16.0); LYMPHOCYTES PERCENT AUTO 15.9 % (20.5-50.1); MEAN CORPUSCULAR HEMOGLOBIN 29.6 pg (27.0-34.0); MEAN CORPUSCULAR HGB CONC 31.1 g/dL (33.0-35.0); MEAN CORPUSCULAR VOLUME 95.3 fL (80-100); MONOCYTES PERCENT AUTO 4.5 % (2-8); NEUTROPHILS PERCENT AUTO 77.1 % (42.2-75.2); PLATELET COUNT,PLT 179 10^3/uL (150-450); RED BLOOD CELL COUNT 2.97 10^6/uL (4.2-5.4); WHITE BLOOD CELL COUNT,WBC 4.7 10^3/uL (5.0-10.0)
[2022-10-09 06:54] LABS: ANION GAP 9.6 mEq/L (7-13); CALCIUM 7.4 mg/dL (8.5-10.1); CREATININE 0.93 mg/dL (0.55-1.02); EST CRCL DRUG DOSING (CG) 57.89 mL/min; POTASSIUM,K 3.6 mmol/L (3.5-5.1)
[2022-10-09] MEDS: Insulin Lispro 100 Units/ML 3 ML Vial SUBCUT SCH ×2 (07:57→17:03)
[2022-10-09] MEDS: Enoxaparin 40 MG/0.4 ML Syringe SUBCUT SCH (09:43)
[2022-10-09] MEDS: Cholestyramine/Sucrose Powder 4 GM Packet PO SCH ×2 (09:57→21:11)
[2022-10-09] MEDS: Ondansetron 4 MG Tab.DIS PO PRN ×2 (11:58→16:38)
[2022-10-09] MEDS: metroNIDAZOLE 250 MG Tab PO SCH ×3 (13:21→21:56)
[2022-10-09] MEDS ORDERED: Calcium Carbonate 500 MG Tab.Chew PO PRN (18:54)
[2022-10-10] MEDS: metroNIDAZOLE 250 MG Tab PO SCH ×4 (06:27→21:54)
[2022-10-10] MEDS: Pantoprazole 40 MG Tab.CR PO SCH (06:27)
[2022-10-10 06:50] LABS: BASOPHILS PERCENT AUTO 0.4 % (0.0-1.0); EOSINOPHILS PERCENT AUTO 1.9 % (1.0-3.0); HEMATOCRIT 27.2 % (37.0-47.0); HEMOGLOBIN 8.9 g/dL (12.0-16.0); LYMPHOCYTES PERCENT AUTO 13.3 % (20.5-50.1); MEAN CORPUSCULAR HEMOGLOBIN 31.9 pg (27.0-34.0); MEAN CORPUSCULAR HGB CONC 32.7 g/dL (33.0-35.0); MEAN CORPUSCULAR VOLUME 97.5 fL (80-100); MONOCYTES PERCENT AUTO 3.3 % (2-8); NEUTROPHILS PERCENT AUTO 81.1 % (42.2-75.2); PLATELET COUNT,PLT 175 10^3/uL (150-450); RED BLOOD CELL COUNT 2.79 10^6/uL (4.2-5.4); WHITE BLOOD CELL COUNT,WBC 5.2 10^3/uL (5.0-10.0)
[2022-10-10 07:17] LABS: ALBUMIN 1.1 g/dL (3.4-5.0); ANION GAP 11.4 mEq/L (7-13); BILIRUBIN TOTAL 0.7 mg/dL (0.2-1.0); BUN/CREATININE RATIO 4.3 (No establ ref range); CALCIUM 7.3 mg/dL (8.5-10.1); CREATININE 0.93 mg/dL (0.55-1.02); EST CRCL DRUG DOSING (CG) 57.89 mL/min; POTASSIUM,K 3.4 mmol/L (3.5-5.1); PROTEIN TOTAL,TP 4.3 g/dL (6.4-8.2)
[2022-10-10 07:36] LABS: A/G RATIO 0.34
[2022-10-10] MEDS ORDERED: Potassium Chloride 10 MEQ Tab.ER PO ONE (08:00)
[2022-10-10] MEDS: Enoxaparin 40 MG/0.4 ML Syringe SUBCUT SCH (08:03)
[2022-10-10] MEDS: Insulin Lispro 100 Units/ML 3 ML Vial SUBCUT SCH ×2 (08:49→18:09)
[2022-10-10] MEDS: Cholestyramine/Sucrose Powder 4 GM Packet PO SCH ×2 (08:54→20:31)
[2022-10-10] MEDS ORDERED: Benzocaine/Cetylpyridinium/Menthol Lozenge MUCMEM PRN (08:55)
[2022-10-10] MEDS: Sodium Chloride 0.9% 1,000 ML IV SCH (11:40)
[2022-10-10] MEDS: Ondansetron 4 MG/2 ML SDV IVPUSH PRN (11:40)
[2022-10-10] MEDS: Pantoprazole 40 MG Vial IVPUSH SCH ×2 (11:40→20:30)
[2022-10-10] MEDS: Dicyclomine 10 MG Cap PO PRN ×2 (16:38→20:29)
[2022-10-11] MEDS: Pantoprazole 40 MG Vial IVPUSH SCH ×4 (00:36→22:17)
[2022-10-11] MEDS: metroNIDAZOLE 250 MG Tab PO SCH ×3 (05:54→21:25)
[2022-10-11 07:08] LABS: BASOPHILS PERCENT AUTO 0.2 % (0.0-1.0); EOSINOPHILS PERCENT AUTO 1.7 % (1.0-3.0); HEMATOCRIT 26.9 % (37.0-47.0); HEMOGLOBIN 8.9 g/dL (12.0-16.0); LYMPHOCYTES PERCENT AUTO 12.4 % (20.5-50.1); MEAN CORPUSCULAR HEMOGLOBIN 32.7 pg (27.0-34.0); MEAN CORPUSCULAR HGB CONC 33.1 g/dL (33.0-35.0); MEAN CORPUSCULAR VOLUME 98.9 fL (80-100); MONOCYTES PERCENT AUTO 4.3 % (2-8); NEUTROPHILS PERCENT AUTO 81.4 % (42.2-75.2); PLATELET COUNT,PLT 173 10^3/uL (150-450); RED BLOOD CELL COUNT 2.72 10^6/uL (4.2-5.4); WHITE BLOOD CELL COUNT,WBC 4.6 10^3/uL (5.0-10.0)
[2022-10-11 07:13] LABS: ALBUMIN 1.1 g/dL (3.4-5.0); ANION GAP 9.6 mEq/L (7-13); BILIRUBIN TOTAL 0.7 mg/dL (0.2-1.0); BUN/CREATININE RATIO 4.9 (No establ ref range); CALCIUM 7.2 mg/dL (8.5-10.1); CREATININE 1.02 mg/dL (0.55-1.02); EST CRCL DRUG DOSING (CG) 52.78 mL/min; MAGNESIUM 1.4 mg/dL (1.8-2.4); POTASSIUM,K 3.6 mmol/L (3.5-5.1); PROTEIN TOTAL,TP 4.3 g/dL (6.4-8.2)
[2022-10-11 07:18] LABS: A/G RATIO 0.34
[2022-10-11] MEDS: Sodium Chloride 0.9% 1,000 ML IV SCH (07:37)
[2022-10-11] MEDS: Enoxaparin 40 MG/0.4 ML Syringe SUBCUT SCH (08:02)
[2022-10-11] MEDS: Cholestyramine/Sucrose Powder 4 GM Packet PO SCH ×2 (08:04→21:21)
[2022-10-11] MEDS: Insulin Lispro 100 Units/ML 3 ML Vial SUBCUT SCH ×2 (08:04→17:08)
[2022-10-11] MEDS ORDERED: Magnesium Sulfate/Water 2 GM in Premix Bag 1 BAG IV ONE ×2 (09:31→17:00)
[2022-10-11] MEDS ORDERED: Meclizine 12.5 MG Tab PO PRN (09:37)
[2022-10-11] MEDS: Dicyclomine 10 MG Cap PO SCH ×3 (11:21→21:25)
[2022-10-11] MEDS ORDERED: Al and Mag Hydroxide/Diphenhydramine/Lidocaine/Simethicone 237 ML Bottle PO PRN (18:52)
[2022-10-11] MEDS ORDERED: GI Cocktail Oral Solution 30 ML PO PRN (19:46)
[2022-10-11] MEDS ORDERED: Mirtazapine 15 MG Tab PO SCH (21:00)
[2022-10-12] MEDS: Sodium Chloride 0.9% 1,000 ML IV SCH (05:38)
[2022-10-12] MEDS: metroNIDAZOLE 250 MG Tab PO SCH (05:46)
[2022-10-12] MEDS: Dicyclomine 10 MG Cap PO SCH ×2 (05:46→10:17)
[2022-10-12] MEDS: Enoxaparin 40 MG/0.4 ML Syringe SUBCUT SCH (08:25)
[2022-10-12] MEDS: Insulin Lispro 100 Units/ML 3 ML Vial SUBCUT SCH (08:25)
[2022-10-12] MEDS: Cholestyramine/Sucrose Powder 4 GM Packet PO SCH (08:26)
[2022-10-12] MEDS: Pantoprazole 40 MG Vial IVPUSH SCH ×2 (10:18→10:19)
[2022-10-12 11:42] VITALS: BP 111/68; PULSE 86
== END 2022-10-12 11:15 | disposition home or self-care (01) | DRG 391 ==
LOC: DL.ED 14:37 → DL.MS 17:34 → DL.ED 18:00
PROVIDERS: ADMIT Internal Medicine; ATTEND Internal Medicine
DX: K52.9 Noninfective gastroenteritis and colitis, unspecified (principal); E43 Unspecified severe protein-calorie malnutrition; K58.9 Irritable bowel syndrome, unspecified; I10 Essential (primary) hypertension; E78.5 Hyperlipidemia, unspecified; J45.909 Unspecified asthma, uncomplicated; E11.9 Type 2 diabetes mellitus without complications; K74.60 Unspecified cirrhosis of liver; K76.0 Fatty (change of) liver, not elsewhere classified; K21.9 Gastro-esophageal reflux disease without esophagitis; F41.9 Anxiety disorder, unspecified; F32.A Depression, unspecified; Z20.822 Contact with and (suspected) exposure to COVID-19; M15.9 Polyosteoarthritis, unspecified; G47.33 Obstructive sleep apnea (adult) (pediatric); M54.50 Low back pain, unspecified; D50.9 Iron deficiency anemia, unspecified; K42.9 Umbilical hernia without obstruction or gangrene; K40.90 Unilateral inguinal hernia, without obstruction or gangrene, not specified as recurrent; E63.9 Nutritional deficiency, unspecified; E86.0 Dehydration; E66.9 Obesity, unspecified; M06.9 Rheumatoid arthritis, unspecified; E83.42 Hypomagnesemia; E87.6 Hypokalemia; Z79.4 Long term (current) use of insulin; Z79.899 Other long term (current) drug therapy; Z88.0 Allergy status to penicillin; Z98.890 Other specified postprocedural states; Z88.8 Allergy status to other drugs, medicaments and biological substances; Z87.891 Personal history of nicotine dependence; Z90.49 Acquired absence of other specified parts of digestive tract; Z68.26 Body mass index [BMI] 26.0-26.9, adult
CPT/HCPCS: 36415; 80048; 80053; 81001; 82150; 82947; 83605; 83690; 83735; 83993; 84100; 84145; 84439; 84443; 85025; 85651; 86003; 86140; 87040; 87045; 87046; 87493; 87507; 87804; 87899; 96361; 96374; 96375; 96376; 99222; 99238; 99284-25; 99285; A9270-GY; C1758; C9113; J1650; J2270; J2405; J3475; J3490; J7030; U0002

== ENCOUNTER 2022-10-22 08:33 | Emergency (ER) | payer OTHER ==
[2022-10-22] MEDS ORDERED: Iopamidol 612 MG/ML 100 ML Bottle IVPUSH ONE (09:06)
[2022-10-22] MEDS ORDERED: Ondansetron 4 MG/2 ML SDV IVPUSH ONE (09:09)
[2022-10-22] MEDS ORDERED: fentaNYL 100 MCG/2 ML SDV IVPUSH ONE ×2 (09:10→18:57)
[2022-10-22] MEDS ORDERED: Naloxone 2 MG/2 ML Syringe IVPUSH PRN (09:10)
[2022-10-22 09:20] LABS: BASOPHILS PERCENT AUTO 0.1 % (0.0-1.0); HEMATOCRIT 35.2 % (37.0-47.0); HEMOGLOBIN 11.5 g/dL (12.0-16.0); LYMPHOCYTES PERCENT AUTO 9.5 % (20.5-50.1); MEAN CORPUSCULAR HEMOGLOBIN 32.3 pg (27.0-34.0); MEAN CORPUSCULAR HGB CONC 32.7 g/dL (33.0-35.0); MEAN CORPUSCULAR VOLUME 98.9 fL (80-100); NEUTROPHILS PERCENT AUTO 84.4 % (42.2-75.2); PLATELET COUNT,PLT 340 10^3/uL (150-450); RED BLOOD CELL COUNT 3.56 10^6/uL (4.2-5.4); WHITE BLOOD CELL COUNT,WBC 10.4 10^3/uL (5.0-10.0)
[2022-10-22 09:26] LABS: ALBUMIN 1.9 g/dL (3.4-5.0); ANION GAP 14.8 mEq/L (7-13); BUN/CREATININE RATIO 11.7 (No establ ref range); CALCIUM 8.4 mg/dL (8.5-10.1); CREATININE 1.2 mg/dL (0.55-1.02); EST CRCL DRUG DOSING (CG) 44.3 mL/min; POTASSIUM,K 3.8 mmol/L (3.5-5.1); PROTEIN TOTAL,TP 6.3 g/dL (6.4-8.2)
[2022-10-22 09:27] LABS: A/G RATIO 0.43
[2022-10-22] MEDS ORDERED: Sodium Chloride 0.9% 1,000 ML IV ONE (09:44)
[2022-10-22] MEDS ORDERED: HYDROmorphone 1 MG/ML Syringe IVPUSH ONE (10:01)
[2022-10-22 11:41] LABS: APPEARANCE,URINE CLEAR (CLEAR); BILIRUBIN,URINE NEGATIVE (NEGATIVE); COLOR,URINE YELLOW (YELLOW); GLUCOSE,URINE NEGATIVE (NEGATIVE); KETONES,URINE NEGATIVE (NEGATIVE); LEUKOCYTE ESTERASE,URINE NEGATIVE (NEGATIVE); NITRITE,URINE POSITIVE (NEGATIVE); OCCULT BLOOD,URINE TRACE-INTACT (NEGATIVE); PROTEIN,URINE NEGATIVE (NEGATIVE); UROBILINOGEN,URINE 0.2 mg/dL (0.2-1.0)
[2022-10-22 11:51] LABS: AMORPHOUS SEDIMENT,URINE FEW /HPF (NOT SEEN); BACTERIA,URINE MANY /HPF (0-FEW/HPF); EPITHELIAL CELLS,URINE MANY /HPF (NOT SEEN); MUCUS,URINE MODERATE /LPF (NOT SEEN); RBC,URINE 0-5 /HPF (0-5)
[2022-10-22] MEDS ORDERED: Ketorolac 30 MG/ML SDV IVPUSH ONE (12:15)
[2022-10-22] MEDS ORDERED: Dexamethasone 4 MG/ML SDV IVPUSH ONE (12:41)
[2022-10-22] MEDS ORDERED: Levofloxacin/Dextrose 5%-Water 500 MG in Premix Bag 1 BAG IV ONE (12:42)
[2022-10-22 13:43] VITALS: BP 152/94; PULSE 84
== END 2022-10-22 19:41 ==
LOC: DL.ED 08:33
DX: K85.20 Alcohol induced acute pancreatitis without necrosis or infection (principal); K74.60 Unspecified cirrhosis of liver; I10 Essential (primary) hypertension; J45.909 Unspecified asthma, uncomplicated; E11.9 Type 2 diabetes mellitus without complications; E66.9 Obesity, unspecified; Z68.25 Body mass index [BMI] 25.0-25.9, adult; Z86.16 Personal history of COVID-19; Z88.0 Allergy status to penicillin; Z88.1 Allergy status to other antibiotic agents; Z88.8 Allergy status to other drugs, medicaments and biological substances; Z88.2 Allergy status to sulfonamides; Z79.4 Long term (current) use of insulin; Z79.899 Other long term (current) drug therapy
CPT/HCPCS: 36415; 74177; 80053; 81001; 82140; 85025; 87086; 87088; 87186; 94762; 96361; 96365; 96375; 96376; 99285-25; J1100; J1170; J1885; J1956; J2405; J3010; J7030; Q9967

== ENCOUNTER 2022-12-24 08:48 | Emergency (ER) | payer OTHER ==
[2022-12-24] MEDS ORDERED: Sodium Chloride 0.9% 10 ML Syringe FLUSH PRN (09:10)
[2022-12-24] MEDS ORDERED: fentaNYL 100 MCG/2 ML SDV IVPUSH ONE ×2 (09:11→10:59)
[2022-12-24 09:17] LABS: BASOPHILS PERCENT AUTO 0.1 % (0.0-1.0); EOSINOPHILS PERCENT AUTO 0.4 % (1.0-3.0); HEMATOCRIT 34.7 % (37.0-47.0); HEMOGLOBIN 10.9 g/dL (12.0-16.0); LYMPHOCYTES PERCENT AUTO 9.7 % (20.5-50.1); MEAN CORPUSCULAR HEMOGLOBIN 29.9 pg (27.0-34.0); MEAN CORPUSCULAR HGB CONC 31.4 g/dL (33.0-35.0); MEAN CORPUSCULAR VOLUME 95.1 fL (80-100); MONOCYTES PERCENT AUTO 2.5 % (2-8); NEUTROPHILS PERCENT AUTO 87.3 % (42.2-75.2); PLATELET COUNT,PLT 251 10^3/uL (150-450); RED BLOOD CELL COUNT 3.65 10^6/uL (4.2-5.4); WHITE BLOOD CELL COUNT,WBC 9.9 10^3/uL (5.0-10.0)
[2022-12-24] MEDS ORDERED: Iopamidol 612 MG/ML 100 ML Bottle IVPUSH ONE (09:22)
[2022-12-24 09:33] LABS: LACTIC ACID 4.2 mmol/L (0.4-2.0)
[2022-12-24 09:34] LABS: ALBUMIN 2.1 g/dL (3.4-5.0); ANION GAP 8.6 mEq/L (7-13); BILIRUBIN TOTAL 1.1 mg/dL (0.2-1.0); BUN/CREATININE RATIO 18.3 (No establ ref range); CREATININE 1.2 mg/dL (0.55-1.02); EST CRCL DRUG DOSING (CG) 44.3 mL/min; POTASSIUM,K 4.6 mmol/L (3.5-5.1); PROTEIN TOTAL,TP 6.3 g/dL (6.4-8.2)
[2022-12-24 09:35] LABS: A/G RATIO 0.5
[2022-12-24 10:37] LABS: AMYLASE 156 U/L (25-115); LIPASE 1160 U/L (73-393)
[2022-12-24 10:43] LABS: APPEARANCE,URINE SLIGHTLY CLOUDY (CLEAR); BILIRUBIN,URINE NEGATIVE (NEGATIVE); COLOR,URINE YELLOW (YELLOW); GLUCOSE,URINE NEGATIVE (NEGATIVE); KETONES,URINE TRACE (NEGATIVE); LEUKOCYTE ESTERASE,URINE SMALL (NEGATIVE); NITRITE,URINE NEGATIVE (NEGATIVE); OCCULT BLOOD,URINE NEGATIVE (NEGATIVE); PROTEIN,URINE 100 (NEGATIVE)
[2022-12-24 10:52] LABS: AMORPHOUS SEDIMENT,URINE FEW /HPF (NOT SEEN); BACTERIA,URINE MANY /HPF (0-FEW/HPF); EPITHELIAL CELLS,URINE FEW /HPF (NOT SEEN); MUCUS,URINE FEW /LPF (NOT SEEN); WBC,URINE 30-40 /HPF (0-5/HPF)
[2022-12-24] MEDS ORDERED: cefTRIAXone 1 GM Vial IVPUSH ONE (11:00)
[2022-12-24] MEDS ORDERED: cefTRIAXone 500 MG Vial IVPUSH ONE (11:06)
[2022-12-24 11:51] VITALS: BP 122/88; PULSE 86
== END 2022-12-24 12:00 | disposition home or self-care (01) ==
LOC: DL.ED 08:48
DX: K85.20 Alcohol induced acute pancreatitis without necrosis or infection (principal); N30.00 Acute cystitis without hematuria; K74.60 Unspecified cirrhosis of liver; L02.818 Cutaneous abscess of other sites; Z88.1 Allergy status to other antibiotic agents; Z88.0 Allergy status to penicillin
CPT/HCPCS: 36415; 74177; 80053; 81001; 82150; 83605; 83690; 85025; 87040; 87086; 87088; 87186; 96374; 96375; 96376; 99285; 99285-25; J0696; J3010; J3490; Q9967

== ENCOUNTER 2023-01-22 18:40 | Inpatient (IN) | payer OTHER ==
[2023-01-22] MEDS ORDERED: Sodium Chloride 0.9% 10 ML Syringe FLUSH PRN (18:47)
[2023-01-22] MEDS ORDERED: Sodium Chloride 0.9% 1,000 ML IV ONE ×3 (18:47→22:00)
[2023-01-22 19:11] LABS: BASOPHILS PERCENT AUTO 0.2 % (0.0-1.0); EOSINOPHILS PERCENT AUTO 0.3 % (1.0-3.0); HEMATOCRIT 36.3 % (37.0-47.0); HEMOGLOBIN 11.4 g/dL (12.0-16.0); LYMPHOCYTES PERCENT AUTO 5.9 % (20.5-50.1); MEAN CORPUSCULAR HEMOGLOBIN 28.9 pg (27.0-34.0); MEAN CORPUSCULAR HGB CONC 31.4 g/dL (33.0-35.0); MEAN CORPUSCULAR VOLUME 92.1 fL (80-100); MONOCYTES PERCENT AUTO 2.3 % (2-8); NEUTROPHILS PERCENT AUTO 91.3 % (42.2-75.2); PLATELET COUNT,PLT 264 10^3/uL (150-450); RED BLOOD CELL COUNT 3.94 10^6/uL (4.2-5.4); WHITE BLOOD CELL COUNT,WBC 6.4 10^3/uL (5.0-10.0)
[2023-01-22] MEDS ORDERED: levETIRAcetam in NaCl (iso-os) 1,500 MG in Premix Bag 1 BAG IV ONE ×2 (19:28)
[2023-01-22 19:33] LABS: A/G RATIO 0.5; ALBUMIN 2.3 g/dL (3.4-5.0); ANION GAP 11.4 mEq/L (7-13); BILIRUBIN TOTAL 1.2 mg/dL (0.2-1.0); BUN/CREATININE RATIO 21.3 (No establ ref range); C-REACTIVE PROTEIN 9.96 ng/dL (<=0.30); CREATININE 1.69 mg/dL (0.55-1.02); EST CRCL DRUG DOSING (CG) 32.04 mL/min; MAGNESIUM 1.8 mg/dL (1.8-2.4); POTASSIUM,K 4.4 mmol/L (3.5-5.1); PROTEIN TOTAL,TP 6.9 g/dL (6.4-8.2)
[2023-01-22] MEDS ORDERED: Ketorolac 30 MG/ML SDV IVPUSH ONE (19:36)
[2023-01-22 19:37] LABS: APPEARANCE,URINE CLEAR (CLEAR); BILIRUBIN,URINE NEGATIVE (NEGATIVE); COLOR,URINE YELLOW (YELLOW); GLUCOSE,URINE NEGATIVE (NEGATIVE); KETONES,URINE NEGATIVE (NEGATIVE); LEUKOCYTE ESTERASE,URINE NEGATIVE (NEGATIVE); NITRITE,URINE NEGATIVE (NEGATIVE); OCCULT BLOOD,URINE NEGATIVE (NEGATIVE); PROTEIN,URINE 30 (NEGATIVE)
[2023-01-22 19:38] LABS: LACTIC ACID 5.4 mmol/L (0.4-2.0)
[2023-01-22 19:46] LABS: BACTERIA,URINE FEW /HPF (0-FEW/HPF); EPITHELIAL CELLS,URINE FEW /HPF (NOT SEEN); HYALINE CASTS,URINE RARE; RBC,URINE 0-5 /HPF (0-5); WBC,URINE 0-5 /HPF (0-5/HPF)
[2023-01-22] MEDS ORDERED: LORazepam 2 MG/ML SDV IVPUSH ONE (19:49)
[2023-01-22 20:11] LABS: INR 0.9 (0.9-1.2); PROTHROMBIN TIME 9.7 SEC (9.0-12.0)
[2023-01-22] MEDS: Norepinephrine Bit/D5W Premix 250 ML IV SCH (22:17)
[2023-01-22] MEDS ORDERED: LORazepam 2 MG/ML SDV IVPUSH PRN (23:13)
[2023-01-22] MEDS ORDERED: Metoprolol Tartrate 5 MG/5 ML SDV IVPUSH PRN (23:13)
[2023-01-22] MEDS ORDERED: hydrALAZINE 20 MG/ML SDV IVPUSH PRN (23:13)
[2023-01-22] MEDS ORDERED: Naloxone 2 MG/2 ML Syringe IVPUSH PRN (23:14)
[2023-01-22] MEDS ORDERED: Ondansetron 4 MG/2 ML SDV IVPUSH PRN (23:14)
[2023-01-22] MEDS ORDERED: Acetaminophen/HYDROcodone 325-10 MG Tab PO PRN (23:14)
[2023-01-22] MEDS ORDERED: Acetaminophen 325 MG Tab PO PRN (23:14)
[2023-01-22] MEDS ORDERED: Albuterol/Ipratropium 3.0-0.5 MG/3 ML Neb Soln NEB PRN (23:14)
[2023-01-23] MEDS ORDERED: Glucagon,Human Recombinant 1 MG Vial IM PRN (00:15)
[2023-01-23] MEDS: Insulin Lispro 100 Units/ML 3 ML Vial SUBCUT SCH ×4 (00:55→17:42)
[2023-01-23] MEDS: Sodium Chloride 0.9% 1,000 ML IV SCH ×2 (01:15→11:40)
[2023-01-23] MEDS: 50% Dextrose in Water 50 ML Syringe IVPUSH PRN ×2 (01:25→06:05)
[2023-01-23] MEDS: Norepinephrine Bit/D5W Premix 250 ML IV SCH (03:30)
[2023-01-23] MEDS: HYDROmorphone 0.5 MG/0.5 ML Syringe IVPUSH PRN ×5 (05:46→23:59)
[2023-01-23 06:44] LABS: BASOPHILS PERCENT AUTO 0.3 % (0.0-1.0); EOSINOPHILS PERCENT AUTO 0.6 % (1.0-3.0); HEMOGLOBIN 8.2 g/dL (12.0-16.0); LYMPHOCYTES PERCENT AUTO 15.4 % (20.5-50.1); MEAN CORPUSCULAR HEMOGLOBIN 28.7 pg (27.0-34.0); MEAN CORPUSCULAR HGB CONC 30.4 g/dL (33.0-35.0); MEAN CORPUSCULAR VOLUME 94.4 fL (80-100); MONOCYTES PERCENT AUTO 4.2 % (2-8); NEUTROPHILS PERCENT AUTO 79.5 % (42.2-75.2); PLATELET COUNT,PLT 164 10^3/uL (150-450); RED BLOOD CELL COUNT 2.86 10^6/uL (4.2-5.4); WHITE BLOOD CELL COUNT,WBC 3.1 10^3/uL (5.0-10.0)
[2023-01-23 07:01] LABS: A/G RATIO 0.44; ALBUMIN 1.4 g/dL (3.4-5.0); ANION GAP 8.3 mEq/L (7-13); BILIRUBIN TOTAL 0.6 mg/dL (0.2-1.0); C-REACTIVE PROTEIN 7.81 ng/dL (<=0.30); CALCIUM 7.2 mg/dL (8.5-10.1); CREATININE 1.13 mg/dL (0.55-1.02); EST CRCL DRUG DOSING (CG) 48.69 mL/min; MAGNESIUM 1.5 mg/dL (1.8-2.4); POTASSIUM,K 3.3 mmol/L (3.5-5.1); PROTEIN TOTAL,TP 4.6 g/dL (6.4-8.2)
[2023-01-23] MEDS ORDERED: Magnesium Sulfate/Water 2 GM in Premix Bag 1 BAG IV ONE (08:24)
[2023-01-23] MEDS: Heparin Sodium 5,000 Units/ML Vial SUBCUT SCH ×2 (08:54→21:31)
[2023-01-23] MEDS ORDERED: levETIRAcetam in NaCl (iso-os) 1,000 MG in Premix Bag 1 BAG IV ONE ×2 (09:00)
[2023-01-23] MEDS: Saccharomyces Boulardii (Probiotic) 250 MG Cap PO SCH ×2 (09:07→21:26)
[2023-01-23] MEDS: Lactulose Soln 10 GM/15 ML 30 ML UD Cup PO SCH ×2 (09:08→12:12)
[2023-01-23] MEDS ORDERED: Potassium Chloride 20 MEQ in Premix Bag 1 BAG IV ONE ×2 (09:23→15:00)
[2023-01-23] MEDS ORDERED: Potassium Chloride 10 MEQ Tab.ER PO ONE (11:00)
[2023-01-23] MEDS: Meropenem 1 GM SDV IVPUSH SCH (20:18)
[2023-01-23] MEDS: levETIRAcetam 500 MG Tab PO SCH (21:26)
[2023-01-23] MEDS ORDERED: Meropenem 1 GM SDV IVPUSH SCH (23:30)
[2023-01-24] MEDS: Insulin Lispro 100 Units/ML 3 ML Vial SUBCUT SCH ×3 (00:20→13:58)
[2023-01-24] MEDS ORDERED: oxyCODONE ER 20 MG TAB.ER PO ONE (00:25)
[2023-01-24] MEDS: Dextrose 5%-0.9% NaCl 1,000 ML IV SCH ×2 (00:32→21:04)
[2023-01-24] MEDS: HYDROmorphone 1 MG/ML Syringe IVPUSH PRN ×3 (00:38→19:32)
[2023-01-24] MEDS: Meropenem 1 GM SDV IVPUSH SCH ×3 (02:55→18:20)
[2023-01-24 06:37] LABS: EOSINOPHILS PERCENT AUTO 0.6 % (1.0-3.0); HEMATOCRIT 28.7 % (37.0-47.0); HEMOGLOBIN 8.5 g/dL (12.0-16.0); LYMPHOCYTES PERCENT AUTO 22.3 % (20.5-50.1); MEAN CORPUSCULAR HEMOGLOBIN 28.1 pg (27.0-34.0); MEAN CORPUSCULAR HGB CONC 29.6 g/dL (33.0-35.0); MONOCYTES PERCENT AUTO 4.7 % (2-8); NEUTROPHILS PERCENT AUTO 72.4 % (42.2-75.2); PLATELET COUNT,PLT 170 10^3/uL (150-450); RED BLOOD CELL COUNT 3.02 10^6/uL (4.2-5.4); WHITE BLOOD CELL COUNT,WBC 3.6 10^3/uL (5.0-10.0)
[2023-01-24 06:57] LABS: ALBUMIN 1.4 g/dL (3.4-5.0); ANION GAP 7.9 mEq/L (7-13); BILIRUBIN TOTAL 0.4 mg/dL (0.2-1.0); BUN/CREATININE RATIO 14.3 (No establ ref range); C-REACTIVE PROTEIN 7.43 ng/dL (<=0.30); CALCIUM 7.5 mg/dL (8.5-10.1); CREATININE 0.77 mg/dL (0.55-1.02); EST CRCL DRUG DOSING (CG) 71.46 mL/min; MAGNESIUM 2.1 mg/dL (1.8-2.4); POTASSIUM,K 3.9 mmol/L (3.5-5.1); PROTEIN TOTAL,TP 4.7 g/dL (6.4-8.2)
[2023-01-24 06:59] LABS: A/G RATIO 0.42
[2023-01-24] MEDS: Saccharomyces Boulardii (Probiotic) 250 MG Cap PO SCH (08:52)
[2023-01-24] MEDS: oxyCODONE ER 10 MG TAB.ER PO SCH ×2 (08:52→19:31)
[2023-01-24] MEDS: Heparin Sodium 5,000 Units/ML Vial SUBCUT SCH ×2 (08:52→09:45)
[2023-01-24] MEDS: Lactulose Soln 10 GM/15 ML 30 ML UD Cup PO SCH (08:52)
[2023-01-24] MEDS: levETIRAcetam 500 MG Tab PO SCH (08:54)
[2023-01-24 16:30] VITALS: BP 125/79; PULSE 92
[2023-01-24] MEDS ORDERED: Insulin Lispro 100 Units/ML 3 ML Vial SUBCUT SCH (17:00)
[2023-01-24] MEDS ORDERED: LORazepam 2 MG/ML SDV IVPUSH PRN (19:47)
[2023-01-24] MEDS ORDERED: oxyCODONE ER 10 MG TAB.ER PO ONE (21:00)
[2023-01-25] MEDS: LORazepam 2 MG/ML SDV IVPUSH PRN ×2 (04:16→13:13)
[2023-01-25] MEDS: HYDROmorphone 1 MG/ML Syringe IVPUSH PRN ×3 (04:19→15:04)
[2023-01-25] MEDS ORDERED: oxyCODONE ER 20 MG TAB.ER PO SCH (09:00)
== END 2023-01-25 15:25 | disposition hospice, home (50) | DRG 871 ==
LOC: DL.ED 18:40 → UNDOADMIN 22:41 → DL.MS 22:41
PROVIDERS: ADMIT Internal Medicine; ATTEND Internal Medicine
PROC: 3E03329 Introduction of Other Anti-infective into Peripheral Vein, Percutaneous Approach (ICD-10-PCS; principal; 2023-01-22)
PROC: 3E033XZ Introduction of Vasopressor into Peripheral Vein, Percutaneous Approach (ICD-10-PCS; 2023-01-22)
DX: A41.9 Sepsis, unspecified organism (principal); J96.02 Acute respiratory failure with hypercapnia; R65.21 Severe sepsis with septic shock; N17.9 Acute kidney failure, unspecified; E87.1 Hypo-osmolality and hyponatremia; E87.20 Acidosis, unspecified; I10 Essential (primary) hypertension; Z66 Do not resuscitate; Z51.5 Encounter for palliative care; Z20.822 Contact with and (suspected) exposure to COVID-19; E78.00 Pure hypercholesterolemia, unspecified; J45.909 Unspecified asthma, uncomplicated; M19.90 Unspecified osteoarthritis, unspecified site; M35.00 Sjogren syndrome, unspecified; F41.9 Anxiety disorder, unspecified; F32.A Depression, unspecified; G47.33 Obstructive sleep apnea (adult) (pediatric); N28.89 Other specified disorders of kidney and ureter; R56.9 Unspecified convulsions; E83.42 Hypomagnesemia; L08.9 Local infection of the skin and subcutaneous tissue, unspecified; D50.9 Iron deficiency anemia, unspecified; E11.65 Type 2 diabetes mellitus with hyperglycemia; E87.8 Other disorders of electrolyte and fluid balance, not elsewhere classified; E83.52 Hypercalcemia; E80.6 Other disorders of bilirubin metabolism; R74.01 Elevation of levels of liver transaminase levels; E87.6 Hypokalemia; E88.09 Other disorders of plasma-protein metabolism, not elsewhere classified; K21.9 Gastro-esophageal reflux disease without esophagitis; K52.9 Noninfective gastroenteritis and colitis, unspecified; K62.89 Other specified diseases of anus and rectum; Z88.1 Allergy status to other antibiotic agents; Z88.8 Allergy status to other drugs, medicaments and biological substances; Z88.0 Allergy status to penicillin; Z88.2 Allergy status to sulfonamides; Z79.4 Long term (current) use of insulin; Z79.899 Other long term (current) drug therapy; Z86.16 Personal history of COVID-19; Z90.49 Acquired absence of other specified parts of digestive tract
CPT/HCPCS: 36415; 70450; 71250; 74176; 80053; 80177; 80307; 81001; 82140; 82150; 82533; 82550; 82947; 83605; 83690; 83735; 84145; 84425; 85025; 85610; 86140; 87040; 87070; 87804; 93005; 93010; 96361; 96365; 96366; 96367; 96375; 99285; 99285-25; A9270-GY; J1170; J1644; J1885; J1953; J2060; J2185; J3370; J3475; J3480; J3490; J7030; J7042; J7050; U0002